=== PATIENT | male | born 1930 | race Caucasian/White ===

== ENCOUNTER 2016-08-24 18:59 | Inpatient (IN) | payer MEDICARE, BC ==
[~2016-08-24] VITALS: Ht 177.8 cm; Wt 78.1 kg
[~2016-08-24 18:59] MED LIST: APRI0.372 PO; CENTTAB9 PO; COUM1TAB PO; LEVO75TA41 PO; MOTI25CH PO; ONDA1TAB16 PO; SHOWER/TUB CHAIR SM; TOPR50TA PO; WARF7.5 PO
[2016-08-24 19:05] VITALS: BP 178/94; PULSE 74; RESP 18; TEMP 98.3; O2SAT 98
--- NOTE | 2016-08-24 19:19 | RADRPT ---
EXAM DATE/TIME: 08/24/2016 19:10 [facility] COMPARISON: CT BRAIN W/O CONTRAST, May 24, 2015, 14:10. MRI BRAIN W & W/O CONTRAST , March 07, 2016, 9:27. INDICATIONS : Stroke alert; left sided weakness and expressive aphasia. RADIATION DOSE: 45.79 CTDIvol (mGy) This report was called by myself to Dr Cerda at 7:17 p.m. MEDICAL HISTORY : Non-responsive. SURGICAL HISTORY : Non-responsive. ENCOUNTER: Initial ACUITY: 1 day PAIN SCALE: Non-responsive LOCATION: cranial TECHNIQUE: Multiple contiguous axial images were obtained of the head. Using automated exposure control and adjustment of the mA and/or kV according to patient size, radiation dose was kept as low as reasonably achievable to obtain optimal diagnostic quality images. FINDINGS: There is no evidence for intracranial hemorrhage, mass effect, mass lesions, or edema. The visualize d bony structures appear intact. Slight degree of brain atrophy is seen. Slight periventricular whit e matter changes are seen nonspecific mostly consistent with chronic small vessel ischemic changes. There are no signs of acute infarction for technique. CONCLUSION: Slight atrophic and small vessel ischemic changes without any evidence for acute hemorrhage or mass effect. Giorgio Fragoso MD on August 24, 2016 at 19:14 Board Certified Radiologist. This report was verified electronically.
[2016-08-24] MEDS ORDERED: SODIUM CHLORID 0.9% 500 ML INJ 500 ML IV ONE (19:30)
[2016-08-24 19:31] LABS: AUTOMATED NEUTROPHIL # 4.9 TH/MM3 (1.8-7.7); BASOPHIL % 0.2 % (0.0-2.0); EOSINOPHIL # 0.1 TH/MM3 (0-0.4); HEMATOCRIT 38.2 % (39.0-51.0); I-STAT POTASSIUM 3.8 MMOL/L (3.5-4.9); I-STAT SODIUM 140 MMOL/L (138-146); MEAN CELL VOLUME 88.7 FL (80.0-100.0); MEAN CORPUSCULAR HGB CONC 33.8 % (32.0-36.0); MONO % 7.7 % (0.0-8.0); NEUT % 75.1 % (16.0-70.0); PLATELET COUNT 81 TH/MM3 (150-450); RED BLOOD COUNT 4.31 MIL/MM3 (4.50-5.90); RED CELL DISTRIBUTION WIDTH 14.3 % (11.6-17.2); WHITE BLOOD COUNT 6.5 TH/MM3 (4.0-11.0)
[2016-08-24 19:34] LABS: HEMO FLAGS AUTO DIFF
[2016-08-24 19:54] LABS: APTT (PATIENT) 40.8 SEC (24.3-30.1); INTERNATIONAL NORMALIZED RATIO 2.4 RATIO; PROTHROMBIN TIME - PATIENT 27.4 SEC (9.8-11.6)
[2016-08-24 19:57] LABS: CREATINE KINASE 120 U/L (39-308)
[2016-08-24 20:01] LABS: PLATELET ESTIMATE SMEAR LOW (NORMAL); PLATELET MORPHOLOGY ENLARGED (NORMAL); SCAN/DIFF AUTO DIFF CONFIRMED
[2016-08-24 20:20] VITALS: BP 183/88; PULSE 66; RESP 18; O2SAT 97
--- NOTE | 2016-08-24 20:21 | HHI.HP ---
[facility] Service [facility] Primary Care Physician Kareem Rubin MD Admission Diagnosis TIA Diagnoses: (1) TIA (transient ischemic attack) Diagnosis: Principal (2) A-fib Diagnosis: Principal (3) Thrombocytopenia Diagnosis: Principal (4) HTN (hypertension) Diagnosis: Principal Travel History International Travel<30 Days: No Contact w/Intl Traveler <30 Da: No Traveled to Known Affected Are: No History of Present Illness This is an 86-year-old male with a PMH of A. fib on Coumadin, HTN, Orthostatic Hypotension, Recurrent Falls, Prostate CA and CAD who was brought to the ER as a Stroke Alert after having acute onset of expressive aphasia and right-sided weakness approx 2hrs prior to arrival. Per report pt had returned from walking and was noted by Daughter to have slurred speech and weakness. Noted by EMS to be confused, nonverbal upon arrival to ER. While in ER, pt w/ resolution of symptoms. BP 178/94, HR 74, O2 sat 98% on RA, Afebrile. CBC at baseline, platelets 81, previously 82 on 04/05/16. Chemistry essentially unremarkable. INR 2.4. UA negative. CT Head with slight atrophic and small vessel ischemic changes however no acute findings. S/p eval in ER by Dr. Duncan w/ Neurology, not TPA candidate in light of resolution and anticoagulation. Pt currently without complaints. Review of Systems Other ROS: 14 point review of systems otherwise negative. Past Family Social History Past Medical History PMH: A. fib on Coumadin, HTN, Orthostatic Hypotension, Recurrent Falls, Prostate CA and CAD Past Surgical History PAST SURGICAL HISTORY: Appendectomy, Cholecystectomy Allergies: Coded Allergies: No Known Allergies (Unverified , 03/13/16) Family History PAST FAMILY HISTORY: Reviewed. No h/o DM or CAD Social History PAST SOCIAL HISTORY: Negative for alcohol, tobacco or drugs. Physical Exam Vital Signs Vital Signs Date Time Temp Pulse Resp B/P Pulse Ox O2 Delivery O2 Flow Rate FiO2 08/24/16 20:13 99 Nasal Cannula 2 08/24/16 20:05 98 Nasal Cannula 2 08/24/16 19:05 98.3 74 18 178/94 98 Physical Exam PE: GENERAL: Pleasant elderly male in no acute distress. Very [place] HEENT: PERRLA, EOMI. No scleral icterus or conjunctival pallor. No lid lag or facial droop. CARDIOVASCULAR: Regular rate and rhythm. No obvious murmurs to auscultation. No chest tenderness to palpation. RESPIRATORY: No obvious rhonchi or wheezing. Clear to auscultation. Breath sounds equal bilaterally. GASTROINTESTINAL: Abdomen soft, non-tender, nondistended. BS normal. MUSCULOSKELETAL: Extremities without clubbing, cyanosis, or edema. No obvious deformities. NEUROLOGICAL: Awake, alert. No focal neurologic deficits. Moving both upper and lower extremities spontaneously. Laboratory Laboratory Tests Test 08/24/16 19:05 White Blood Count 6.5 Red Blood Count 4.31 Hemoglobin 12.9 Bedside Hemoglobin 12.9 Hematocrit 38.2 Bedside Hematocrit 38.0 Mean Corpuscular Volume 88.7 Mean Corpuscular Hemoglobin 30.0 Mean Corpuscular Hemoglobin 33.8 Concent Red Cell Distribution Width 14.3 Platelet Count 81 Mean Platelet Volume 10.4 Neutrophils (%) (Auto) 75.1 Lymphocytes (%) (Auto) 15.0 Monocytes (%) (Auto) 7.7 Eosinophils (%) (Auto) 2.0 Basophils (%) (Auto) 0.2 Neutrophils # (Auto) 4.9 Lymphocytes # (Auto) 1.0 Monocytes # (Auto) 0.5 Eosinophils # (Auto) 0.1 Basophils # (Auto) 0.0 CBC Comment AUTO DIFF Differential Comment AUTO DIFF CONFIRMED Platelet Estimate LOW Platelet Morphology Comment ENLARGED Red Cell Morphology Comment NORMAL Prothrombin Time 27.4 Prothromb Time International 2.4 Ratio Activated Partial 40.8 Thromboplast Time Fibrinogen 234 Bedside Sodium 140 Bedside Potassium 3.8 Bedside Chloride 99 Bedside Blood Urea Nitrogen 26 Bedside Creatinine 1.0 Bedside Glucose 121 Total Creatine Kinase 120 Troponin I LESS THAN 0.02 Blood Type A POSITIVE Antibody Screen NEGATIVE Blood Bank Comment Result Diagram: 08/24/161904 Assessment and Plan Problem List: (1) TIA (transient ischemic attack) ICD Code: G45.9 Status: Acute (2) A-fib ICD Code: I48.91 Status: Acute (3) Thrombocytopenia ICD Code: D69.6 Status: Acute (4) HTN (hypertension) ICD Code: I10 Status: Acute Assessment and Plan A/P: 1. TIA: Acute onset of aphasia and right-sided weakness approx 2hr prior to arrival, s/p Stroke Alert, symptoms now resolved. CT Head w/ no acute findings , images reviewed by me. S/p eval by Dr. Duncan in ER, not TPA candidate in light of resolution and anticoagulation. Recommendation for MRI/MRA, Echo, Carotid US and ASA 81mg-orders placed. ? seizure activity although less likely , will place on Seizure Precautions. Neuro checks q4h. 2. A-fib: Paroxysmal. On Coumadin, INR therapeutic at 2.4. Check Echo as above. Repeat INR in am. 3. Thrombocytopenia: Chronic. Stable. Platelets 81, previously 82 on . No active bleeding. Will monitor. 4. HTN: BP 170's, allow for permissive HTN, prn for >220 systolic. 5. DVT Prophylaxis: On Coumadin 6. Social work for d/c planning as needed. 7. Case discussed w/ ER physician at length. Physician Certification 2 Midnight Certification Type: Admission for Inpatient Services Order for Inpatient Services The services are ordered in accordance with Medicare regulations or non- Medicare payer requirements, as applicable. In the case of services not specified as inpatient-only, they are appropriately provided as inpatient services in accordance with the 2-midnight benchmark. Estimated LOS (days): 2 days is the estimated time the patient will need to remain in the hospital, assuming treatment plan goals are met and no additional complications. Post-Hospital Plan: Not yet determined Problem Qualifiers (1) TIA (transient ischemic attack): Qualified Code: G45.9 - Transient cerebral ischemia, unspecified type Meg Abreu MD Aug 24, 2016 20:21
[2016-08-24 20:28] LABS: BLOOD, URINE NEG (NEG); GLUCOSE,URINE NEG (NEG); HYALINE CAST, URINE 1 /lpf (RARE); KETONE, URINE NEG (NEG); MUCUS URINE FEW /lpf (OCC); NITRITE,URINE NEG (NEG); URINE COLOR YELLOW (YELLW/STRAW)
[2016-08-24] MEDS ORDERED: SODIUM CHLORIDE 0.9% FLUSH 5 ML FLUSH FLUSH PRN (20:30)
[2016-08-24] MEDS ORDERED: WARF4TAB52 PO (20:42)
[2016-08-24] MEDS ORDERED: WARF-18 PO (20:42)
[2016-08-24] MEDS ORDERED: METO50TA11 PO (20:42)
[2016-08-24] MEDS ORDERED: LEVO75TA3 PO (20:42)
[2016-08-24] MEDS ORDERED: APRI0.372 PO (20:42)
[2016-08-24] MEDS ORDERED: AMLO5TAB2 PO (20:42)
[2016-08-24 20:43] LABS: AMPHETAMINE, URINE NEG (NEG); BARBITURATES, URINE NEG (NEG); COCAINE, URINE NEG (NEG)
--- NOTE | 2016-08-24 20:51 | PD ---
HPI Chief Complaint: Stroke Alert Time Seen by Provider: 19:08 Travel History International Travel<30 days: No Contact w/Intl Traveler<30days: No Traveled to known affect area: No History of Present Illness HPI 86-year-old male came to the emergency room brought by EMS with history of expressive aphasia and some left upper extremity weakness as per the paramedics. Patient was initially quickly assessed by the previous ER physician. When I went to see the patient he seemed confused and mumbling some words. As per the paramedics the onset was 2 hours prior to arrival and was witnessed by the family members. The daughter called 911. However, there were no family members present when EMS brought the patient in. A stroke alert was called based on the story. Patient was rushed to CT scanner. Patient was hypertensive upon arrival. He was having difficulty following commands and hence a quick thorough exam was difficult to be performed. The neurologist was called as part of the stroke alert. I was told by the paramedics that patient is on Coumadin. PFSH Past Medical History Narrative Medical List of his past medical history is reviewed from the nursing note. Hx Anticoagulant Therapy: Yes Asthma: No Atrial Fibrillation: Yes Blood Disorders: No Anxiety: No Heart Rhythm Problems: No Cancer: Yes (PROSTATE, SHOULDER LEISON ) Cardiovascular Problems: Yes High Cholesterol: No Chemotherapy: No Chest Pain: Yes Congestive Heart Failure: No COPD: No Cerebrovascular Accident: No Coronary Artery Disease: Yes Diabetes: No Diminished Hearing: Yes ([place]) Endocrine: Yes (hypothriodism) Gastrointestinal Disorders: Yes GERD: Yes Genitourinary: No Hypertension: Yes Musculoskeletal: Yes Neurologic: Yes Psychiatric: No Reproductive: No Respiratory: No Immunizations Current: Yes Radiation Therapy: Yes (PROSTATE) Sleep Apnea: No Thyroid Disease: Yes Tetanus Vaccination: < 5 Years Influenza Vaccination: Yes Past Surgical History Appendectomy: Yes Cholecystectomy: Yes Hysterectomy: No Other Surgery: Yes Social History Alcohol Use: No Tobacco Use: No Substance Use: No Allergies-Medications (Allergen,Severity, Reaction): Coded Allergies: No Known Allergies (Unverified , 03/13/16) Comments No known drug allergies. Reported Meds & Prescriptions Reported Meds & Active Scripts Active Reported Warfarin 1 Mg Tab 1 Mg PO DIRECTED Warfarin 2.5 Mg Tab 2.5 Mg PO DAILY Metoprolol Succinate ER 24 HR (Metoprolol Succinate) 50 Mg Tab 50 Mg PO DAILY Levothyroxine (Levothyroxine Sodium) 75 Mcg Tab 75 Mcg PO DAILY Apriso (Mesalamine) 0.375 Gm Caper 1.5 Gm PO DAILY Narrative Medication List of his home medications reviewed from the nursing note. Review of Systems Except as stated in HPI: all other systems reviewed are Neg Physical Exam Narrative GENERAL: Awake, alert, elderly, confused and having difficulty following commands. Patient is very hard of hearing and requires hearing aids. He was given his hearing aids which improved the neurology exam remarkably SKIN: Warm and dry. HEAD: Atraumatic. Normocephalic. EYES: Pupils equal and round. No scleral icterus. No injection or drainage. ENT: No nasal bleeding or discharge. Mucous membranes pink and moist. NECK: Trachea midline. No JVD. CARDIOVASCULAR: Regular rate and rhythm. No murmur appreciated. RESPIRATORY: No accessory muscle use. Clear to auscultation. Breath sounds equal bilaterally. GASTROINTESTINAL: Abdomen soft, non-tender, nondistended. Hepatic and splenic margins not palpable. MUSCULOSKELETAL: No obvious deformities. No clubbing. No cyanosis. No edema. NEUROLOGICAL: Neurological exam was performed thoroughly once patient arrived from the CAT scan. This was at 7:30 PM and at this point patient was awake and alert. No obvious cranial nerve deficits. Motor grossly within normal limits. Normal speech. 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 Data Data Last Documented VS Vital Signs Date Time Temp Pulse Resp B/P Pulse Ox O2 Delivery O2 Flow Rate FiO2 08/24/16 20:13 99 Nasal Cannula 2 08/24/16 19:05 98.3 74 18 178/94 Orders Activity Bed Rest (08/24/16 ) Electrocardiogram (08/24/16 ) I-Stat Creatinine (08/24/16 19:06) I-Stat Profile (08/24/16 19:06) Prothrombin Time / Inr (Pt) (08/24/16 19:06) Act Partial Throm Time (Ptt) (08/24/16 19:06) Complete Blood Count With Diff (08/24/16 19:06) Fibrinogen (08/24/16 19:06) Creatine Kinase (Cpk) (08/24/16 19:06) Troponin I (08/24/16 19:06) Ua Includes Microscopic (08/24/16 19:06) Drug Screen, Random Urine (08/24/16 19:06) Type And Screen (08/24/16 19:06) Ct Brain W/O Iv Contrast(Rout) (08/24/16 ) Consult Neurology (08/24/16 ) Blood Glucose (08/24/16 19:06) Ecg Monitoring (08/24/16 19:06) Neuro Checks Q2HX12,Q4H (08/24/16 19:06) Nursing Bedside Swallow Assess .ONCE (08/24/16 19:06) Iv Access Insert/Monitor (08/24/16 19:06) NPO (08/24/16 19:06) Oximetry (08/24/16 19:06) Oxygen Administration (08/24/16 19:06) Resp Oxygen John C Titrat 1-4 L (08/24/16 19:06) Cath For Specimen (08/24/16 19:06) Sodium Chlorid 0.9% 500 Ml Inj (Ns 500 M (08/24/16 19:30) Admit Order (Ed Use Only) (08/24/16 20:07) Labs Laboratory Tests Test 08/24/16 08/24/16 19:05 19:30 White Blood Count 6.5 TH/MM3 Red Blood Count 4.31 MIL/MM3 Hemoglobin 12.9 GM/DL Bedside Hemoglobin 12.9 G/DL Hematocrit 38.2 % Bedside Hematocrit 38.0 % Mean Corpuscular Volume 88.7 FL Mean Corpuscular Hemoglobin 30.0 PG Mean Corpuscular Hemoglobin 33.8 % Concent Red Cell Distribution Width 14.3 % Platelet Count 81 TH/MM3 Mean Platelet Volume 10.4 FL Neutrophils (%) (Auto) 75.1 % Lymphocytes (%) (Auto) 15.0 % Monocytes (%) (Auto) 7.7 % Eosinophils (%) (Auto) 2.0 % Basophils (%) (Auto) 0.2 % Neutrophils # (Auto) 4.9 TH/MM3 Lymphocytes # (Auto) 1.0 TH/MM3 Monocytes # (Auto) 0.5 TH/MM3 Eosinophils # (Auto) 0.1 TH/MM3 Basophils # (Auto) 0.0 TH/MM3 CBC Comment AUTO DIFF Differential Comment AUTO DIFF CONFIRMED Platelet Estimate LOW Platelet Morphology Comment ENLARGED Red Cell Morphology Comment NORMAL Prothrombin Time 27.4 SEC Prothromb Time International 2.4 RATIO Ratio Activated Partial 40.8 SEC Thromboplast Time Fibrinogen 234 mg/dL Bedside Sodium 140 MMOL/L Bedside Potassium 3.8 MMOL/L Bedside Chloride 99 MMOL/L Bedside Blood Urea Nitrogen 26 MG/DL Bedside Creatinine 1.0 MG/DL Bedside Glucose 121 MG/DL Total Creatine Kinase 120 U/L Troponin I LESS THAN 0.02 NG/ML Blood Type A POSITIVE Antibody Screen NEGATIVE Blood Bank Comment Urine Color YELLOW Urine Turbidity CLEAR Urine pH 6.0 Urine Specific [place] 1.016 Urine Protein NEG mg/dL Urine Glucose (UA) NEG mg/dL Urine Ketones NEG mg/dL Urine Occult Blood NEG Urine Nitrite NEG Urine Bilirubin NEG Urine Urobilinogen LESS THAN 2.0 MG/DL Urine Leukocyte Esterase NEG Urine WBC LESS THAN 1 /hpf Urine Hyaline Casts 1 /lpf Urine Mucus FEW /lpf Microscopic Urinalysis Comment Urine Opiates Screen NEG Urine Barbiturates Screen NEG Urine Amphetamines Screen NEG Urine Benzodiazepines Screen NEG Urine Cocaine Screen NEG Urine Cannabinoids Screen NEG MDM Medical Decision Making Medical Screen Exam Complete: Yes Emergency Medical Condition: Yes Medical Record Reviewed: Yes Interpretation(s) Twelve-lead EKG was reviewed by me. Normal sinus rhythm, normal axis, nonspecific ST-T wave changes. Heart rate of 76 bpm. Differential Diagnosis TIA, seizure postictal, intracranial bleed Narrative Course 8:46 PM the radiologist called back to let me know that the CT scan did not show any hemorrhage and overall appeared to be within normal limits. I spoke with the neurologist Dr. Duncan and when he heard about the repeat exam after patient came back from CT scan he concurred that patient definitely was not a TPA candidate at this point since he had improved remarkably. He came to see the patient about 15 minutes after the conversation and assessed him. He is considering seizure with postictal phase at this point, among other differentials. Please refer to his consult note. He did not recommend any further imaging studies at this point. Meanwhile patient's came in to see the patient and I spoke with her. She mentioned that she noticed that patient was not answering meaningfully when she spoke with him or asked him a question. However the speech was absolutely clear. His words did not make any sense when he was talking however. This was between 3:30 to 4 PM today. The last time she saw him speaking normally was 3:30 PM. As per her he has never had stroke in the past. As per her he is on Coumadin for atrial fibrillation. She agreed that patient's speech has improved significantly at this point. She thinks he is little slow but otherwise back to his baseline. She never witnessed any seizures at home when he was with her. He does not have any history of seizures. His INR came back and it was 2.4. I explained to the the test results and the plan to admit him and do further workup. She understood and I answered all her questions to the best of my ability. I spoke with the hospitalist was accepted the case. Critical Care Narrative Aggregate critical care time was 45 minutes. Time to perform other separately billable procedures was not included in the critical care time. My time did not include minutes spent treating any other patients simultaneously or on activities that did not directly contribute to the patient's treatment. The services I provided to this patient were to treat and/or prevent clinically significant deterioration that could result in: Stroke alert, not a TPA candidate I provided critical care services requiring my management, as noted below: Chart data review, documentation time, medication orders and management, vital sign assessments/reviewing monitor data, ordering and reviewing lab tests, ordering and interpreting/reviewing x-rays and diagnostic studies, care of the patient and discussion of the patient with the admitting physicians. Procedures EKG Prior to Arrival: Yes Physician Communication Physician Communication Dr. Duncan Diagnosis Primary Impression: TIA (transient ischemic attack) Qualified Code: G45.9 - Transient cerebral ischemia, unspecified type Admitting Information Admitting Physician Requests: Admit Scripts Atorvastatin (Lipitor)20 Mg Tab20 Mg PO HS #30 TAB Prov:Chris Britt MD 08/26/16 Amlodipine (Norvasc)10 Mg Tab10 Mg PO DAILY #30 TAB Prov:Chris Britt MD 08/26/16 Betty Cerda MD Aug 24, 2016 20:51
[2016-08-24] MEDS ORDERED: ACETAMINOPHEN/HYDROcodone 325 MG/5 MG TAB PO PRN (21:00)
[2016-08-24] MEDS ORDERED: ONDANSETRON HCL 4 MG/2 ML VIAL IVP PRN (21:00)
[2016-08-24] MEDS ORDERED: BISACODYL 10 MG SUPP PR PRN (21:00)
[2016-08-24] MEDS ORDERED: ACETAMINOPHEN/HYDROcodone 325 MG/10 MG TAB PO PRN (21:00)
[2016-08-24] MEDS ORDERED: ACETAMINOPHEN 325 MG TAB PO PRN (21:00)
--- NOTE | 2016-08-24 21:09 | MB ---
cc: RAJI HUMPHRIES MD DATE OF CONSULTATION 08/24/16 REASON FOR CONSULTATION Stroke alert HISTORY OF PRESENT ILLNESS Mr. Mark is an 86-year-old male who has past medical history of hypertension, syncopal episode, paroxysmal atrial fibrillation, anticoagulated on Coumadin, orthostatic hypotension and multiple falls. A stroke alert was called and because after he walked a mile he was found to be slurring in speech with weakness on the right side of his body witnessed by his daughter. She called EMS and he was transported to the hospital. Initially he was confused, nonverbal to the ED physician. A head CT scan was reported with an impression of slight atrophic and small vessel ischemic changes without any evidence for acute hemorrhage or mass effect. His lab work was unremarkable. His INR was 2.4 and glucose 121. Blood pressure upon arrival was 178/94 with a respiratory rate of 18, pulse of 74, temperature of 98.3. When I assessed the patient, his NIH score scale was zero. He was back to himself completely. This is in concordance with the ED physician so the patient was not deemed as a candidate for IV TPA or mechanical thrombectomy given the low NIH stroke scale and the rapid improvement of his symptoms. REVIEW OF SYSTEMS A 12-point review of systems is negative except for what is stated in the HPI. PAST MEDICAL HISTORY 1. Hypertension, 2. Syncopal episode 3. Paroxysmal atrial fibrillation on Coumadin 4. Multiple falls. PAST SURGICAL HISTORY Noncontributory FAMILY HISTORY Noncontributory SOCIAL HISTORY Denies alcohol, smoking or recreational drug abuse. PHYSICAL EXAMINATION GENERAL: Awake, alert, good historian. [id number], pleasant. HEENT: Intact vision. Goyi-wy-[id number], atraumatic, normocephalic. NECK: Supple. No carotid bruits. CARDIOVASCULAR: Regular rate and rhythm. No murmurs. RESPIRATORY: Clear to auscultation. No wheezes. MUSCULOSKELETAL: No edema. Moves all extremities equally. NEUROLOGIC: Awake, alert, oriented to time, person and place. Intact speech. Intact speech content. Intact naming, repetition and comprehension. No dysarthria or dysphasia. No facial asymmetry. No facial numbness. Pupils are 2-3 mm bilaterally equal, no nystagmus. No diplopia. Cranial nerve exam is grossly intact. 5/5 bilateral and symmetrical except for a questionable supple weakness on the right wrist extension and the right foot dorsiflexion. Reflexes 2+ bilateral and symmetrical. Plantars are bilaterally downgoing. Sensation is intact bilateral and symmetrical. No agnosia, no sensory extension. Cerebellar functions are intact bilateral and symmetrical [id number] and [id number]. PSYCHIATRIC: Normal behavior and mood, good judgment. No hallucinations normocephalic LABORATORY DATA WBC 6.5, hemoglobin 12.9, hematocrit 38.2. Coagulation factors - INR 2.4, fibrinogen 234. Sodium 140, potassium 3.8, chloride 99, BUN 36, creatinine one. IMAGING STUDIES -Head CT scan without contrast revealed slight atrophic and small vessel ischemic changes without any evidence for acute hemorrhage or mass effect. IMPRESSION 1. Possible TIA 2. Another less likely etiology is a seizure disorder with postictal confusion. This is less likely given no history of seizures or history of recent head trauma. PLAN 1. Neuro checks q. four hourly 2. Telemetry 3. MRI brain 4. MRA brain 5. Carotid ultrasound. 6. Telemetry 7. Cardiac echo 8. DVT prophylaxis. 9. GI prophylaxis. 10. Aspirin 81 mg Thank you for the opportunity to participate in the care of your patient. MD SHELBY Miller/ /8:33 PM /8:55 PM MICHELLE
[2016-08-24 21:10] VITALS: BP 178/82; PULSE 66; RESP 18; O2SAT 97
[2016-08-24] MEDS ORDERED: ENALAPRILAT 1.25 MG/ML VIAL IV PUSH PRN (21:45)
[2016-08-24] MEDS: SODIUM CHLORIDE 0.9% FLUSH 5 ML FLUSH FLUSH SCH (22:27)
[2016-08-24] MEDS: SODIUM CHLOR 0.9% 1000 ML INJ 1,000 ML IV SCH (22:28)
[2016-08-24 22:54] VITALS: BP 171/74; PULSE 66; RESP 18; O2SAT 99
[2016-08-24 23:49] VITALS: BP 170/77
[2016-08-25] VITALS (7 sets, daily range): BP systolic 114–185; BP diastolic 63–90; PULSE 63–73; RESP 19–20; TEMP 95.6–99.9; O2SAT 94–97
[2016-08-25 03:36] LABS: AUTOMATED NEUTROPHIL # 4.1 TH/MM3 (1.8-7.7); BASOPHIL % 0.2 % (0.0-2.0); EOSINOPHIL # 0.2 TH/MM3 (0-0.4); EOSINOPHIL % 2.7 % (0.0-4.0); HEMATOCRIT 37.6 % (39.0-51.0); LYMPH % 16.3 % (9.0-44.0); LYMPHOCYTE # 0.9 TH/MM3 (1.0-4.8); MEAN CELL VOLUME 88.2 FL (80.0-100.0); MEAN CORPUSCULAR HEMOGLOBIN 29.8 PG (27.0-34.0); MEAN CORPUSCULAR HGB CONC 33.8 % (32.0-36.0); MONO % 7.7 % (0.0-8.0); NEUT % 73.1 % (16.0-70.0); PLATELET COUNT 71 TH/MM3 (150-450); RED BLOOD COUNT 4.26 MIL/MM3 (4.50-5.90); RED CELL DISTRIBUTION WIDTH 14.4 % (11.6-17.2); WHITE BLOOD COUNT 5.6 TH/MM3 (4.0-11.0)
[2016-08-25 03:37] LABS: HEMO FLAGS AUTO DIFF
[2016-08-25 04:02] LABS: ANION GAP 7 MEQ/L (5-15); AST (GOT) 16 U/L (15-37); BICARBONATE 28.4 MEQ/L (21.0-32.0); BLOOD UREA NITROGEN 17 MG/DL (7-18); CHLORIDE 106 MEQ/L (98-107); GLOMERULAR FILTRATION RATE 97 ML/MIN (>89); POTASSIUM 3.4 MEQ/L (3.5-5.1); SODIUM (NA) 141 MEQ/L (136-145)
[2016-08-25 04:06] LABS: ALKALINE PHOSPHATASE 55 U/L (45-117); ALT (GPT) 22 U/L (12-78); TOTAL BILIRUBIN ADULT 0.5 MG/DL (0.2-1.0)
--- NOTE | 2016-08-25 08:55 | RADRPT ---
EXAM DATE/TIME: 08/25/2016 07:56 [facility] COMPARISON: No previous studies available for comparison. INDICATIONS : Transient ischemic attack. MEDICAL HISTORY : Gastroesophageal reflux disease. Hypertension. Carcinoma, prostate. Hypothyroidism. Hearing loss. Cor onary artery disease. Anticoagulant therapy. Afib. Radiation. Shoulder cancer. SURGICAL HISTORY : Cholecystectomy. Appendectomy. Left shoulder surgery. Right shoulder cancer removed. Left leg surge ry. ENCOUNTER: Initial ACUITY: 2 days PAIN SCORE: 0/10 LOCATION: Bilateral neck PEAK SYSTOLIC VELOCITIES (cm/sec): ICA/CCA RATIO: Right: 1.2 Left: 1.7 ICA: Right: 81 Left: 148 CCA: Right: 65 Left: 87 ECA: Right: 58 Left: 63 VERTEBRAL: Right: 46 antegrade Left: 36 antegrade Elevated flow velocities and ICA/CCA ratios have been found to correlate with increased degrees of vessel stenosis, calculated as percentage of diameter relative to a normal segment of distal ICA/CCA FINDINGS: RIGHT CAROTID: No significant stenosis is visualized. Intimal thickening and scattered plaque. The waveforms are wit hin normal limits. LEFT CAROTID: Mild scattered plaque. The waveforms are within normal limits. VERTEBRAL ARTERIES: Antegrade flow is seen in both vertebral arteries. MISCELLANEOUS: None. CONCLUSION: 1. Elevated velocity/ratio in the left carotid system suggesting a 50-69% stenosis. 2. No significant stenosis in the right carotid artery. Ramesh Dukes MD on August 25, 2016 at 8:52 Board Certified Radiologist. This report was verified electronically.
[2016-08-25 09:21] LABS: PLATELET ESTIMATE SMEAR LOW (NORMAL); PLATELET MORPHOLOGY NORMAL (NORMAL); SCAN/DIFF AUTO DIFF CONFIRMED
[2016-08-25] MEDS: SODIUM CHLORIDE 0.9% FLUSH 5 ML FLUSH FLUSH SCH ×2 (09:44→20:18)
[2016-08-25] MEDS: ASPIRIN EC 81 MG TABEC PO SCH (09:44)
--- NOTE | 2016-08-25 10:11 | HHI.PR ---
Subjective Remarks Follow-up for T IIA versus CVA Right side is numbness improved, aphasia has resolved. Patient can answer questions fine, he is oriented. Denies any headache, nausea or vomiting. No chest pain, palpitations or shortness of breath. Objective Vitals Vital Signs Date Time Temp Pulse Resp B/P Pulse Ox O2 Delivery O2 Flow Rate FiO2 08/25/16 09:58 96.5 70 20 178/88 96 08/25/16 04:30 98.0 68 19 169/80 97 08/25/16 00:40 98.9 69 19 185/90 96 08/24/16 23:49 64 18 170/77 96 08/24/16 22:54 66 18 171/74 99 Room Air 08/24/16 21:10 66 18 178/82 97 08/24/16 20:20 66 18 183/88 97 Nasal Cannula 2 08/24/16 20:13 99 Nasal Cannula 2 08/24/16 20:05 98 Nasal Cannula 2 08/24/16 19:05 98.3 74 18 178/94 98 I/O 08/24/16 08/24/16 08/24/16 08/25/16 08/25/16 08/25/16 07:00 15:00 23:00 07:00 15:00 23:00 Intake Total 400 ml Output Total 450 ml Balance -50 ml Intake Oral 400 ml Output Urine Total 450 ml # Voids 1 # Bowel Movements 0 Result Diagram: 08/25/16 0326 08/25/16 0326 Imaging Last Impressions Carotid Artery Ultrasound 08/25/16 0000 Signed Impressions: Service Date/Time: Thursday, August 25, 2016 07:56 - CONCLUSION: 1. Elevated velocity/ratio in the left carotid system suggesting a 50-69%% stenosis. 2. No significant stenosis in the right carotid artery. Ramesh Dukes MD Head CT 08/24/16 0000 Signed Impressions: Service Date/Time: Wednesday, August 24, 2016 19:10 - CONCLUSION: Slight atrophic and small vessel ischemic changes without any evidence for acute hemorrhage or mass effect. Giorgio Fragoso MD Objective Remarks GENERAL: Not in distress. HEENT: PERRLA, EOMI. No scleral icterus or conjunctival pallor. CARDIOVASCULAR: Regular rate and rhythm. No obvious murmurs to auscultation. No chest tenderness to palpation. RESPIRATORY: No obvious rhonchi or wheezing. Clear to auscultation. Breath sounds equal bilaterally. GASTROINTESTINAL: Abdomen soft, non-tender, nondistended. BS normal. MUSCULOSKELETAL: Extremities without clubbing, cyanosis, or edema. No obvious deformities. NEUROLOGICAL: Awake, alert. Oriented 3, moves all extremities, 5 over 5 all 4 extremities, no sensory deficits, symmetric touch sensation bilaterally, no cranial nerve deficits, no facial asymmetry. No obvious aphasia. A/P Problem List: (1) TIA (transient ischemic attack) ICD Code: G45.9 Status: Acute (2) A-fib ICD Code: I48.91 Status: Acute (3) Thrombocytopenia ICD Code: D69.6 Status: Acute (4) HTN (hypertension) ICD Code: I10 Status: Acute Assessment and Plan This is an 86-year-old male who presented with aphasia and right side is paresthesia TIA versus CVA-rule out seizures-CT scan of the head was unremarkable. Follow- up MRI, MRA and echocardiogram. Carotid ultrasound showed a 50-69% possible left-sided stenosis. Check CTA of the neck. Neurology following. Continue neuro checks. Continue aspirin, on Coumadin. Will need surgery if with significant stenosis. Discussed with family. Check lipid panel and hemoglobin A1c. Atrial fibrillation-paroxysmal, currently in sinus rhythm, INR therapeutic. Follow-up echocardiogram Thrombocytopenia: Chronic. Stable. Platelets 81, previously 82 on 04/05/16. No active bleeding. Will monitor. HTN: BP 170's, allow for permissive HTN, prn for >220 systolic. Restart Norvasc 10 mg daily if MRI is negative. DVT Prophylaxis: On Coumadin Discussed with RN and family: and daughter Problem Qualifiers (1) TIA (transient ischemic attack): Qualified Code: G45.9 - Transient cerebral ischemia, unspecified type Chris Britt MD Aug 25, 2016 10:11
[2016-08-25] MEDS ORDERED: POTASSIUM CHLORIDE 10 MEQ CONTROLLED RELEASE TAB PO ONE (10:15)
[2016-08-25] MEDS: SODIUM CHLOR 0.9% 1000 ML INJ 1,000 ML IV SCH (11:18)
--- NOTE | 2016-08-25 12:41 | RADRPT ---
EXAM DATE/TIME: 08/25/2016 12:14 [facility] COMPARISON: MRA BRAIN W/O CONTRAST, March 07, 2016, 9:27. INDICATIONS : Right sided weakness. MEDICAL HISTORY : Carcinoma, prostate. Hypertension. SURGICAL HISTORY : Appendectomy. Cholecystectomy. ENCOUNTER: Initial ACUITY: 1 day PAIN SCORE: 0/10 LOCATION: cranial Please note a normal MRA of the brain does not entirely exclude the possibility of a small aneurysm, nor the possibility of distal intracranial vessel disease. TECHNIQUE: 3D time of flight MRA was performed. Source images, multiplanar STS MIP, and 3D volume MIP reconstru ctions were reviewed. FINDINGS: There is excellent visualization of the major intracranial arteries out to the second-order branch ve ssels. There is no evidence for aneurysm, vessel truncation or stenosis, and no evidence for vascula r malformation. Persistent circulation right posterior sternal arteries. Vertebrobasilar juncti on normal. Anterior to indicating artery. Hypoplastic right A1 segment. Anterior communicating artery . CONCLUSION: No significant stenosis. Normal variants. Ramesh Dukes MD on August 25, 2016 at 12:38 Board Certified Radiologist. This report was verified electronically.
[2016-08-25] MEDS ORDERED: IOHEXOL 350 MG/ML 10 ML VIAL (for RAD DIAG) IV ONE (12:46)
--- NOTE | 2016-08-25 12:50 | RADRPT ---
EXAM DATE/TIME: 08/25/2016 12:14 [facility] COMPARISON: MRI BRAIN W & W/O CONTRAST, March 07, 2016, 9:27. INDICATIONS : Right sided weakness. MEDICAL HISTORY : Carcinoma, prostate. Hypertension. SURGICAL HISTORY : Cholecystectomy. ENCOUNTER: Initial ACUITY: 1 day PAIN SCORE: 0/10 LOCATION: cranial TECHNIQUE: Multiplanar, multisequence MRI of the brain was performed without contrast. FINDINGS: CEREBRUM: Cerebral atrophy. The ventricles are normal for age. No evidence of midline shift, mass lesion, hemo rrhage or acute infarction. No extraaxial fluid collections are seen. The pituitary gland and supra sellar cistern are normal in configuration. WHITE MATTER: Scattered foci of bright T2 signal abnormalities are seen in the white matter. POSTERIOR FOSSA: The cerebellum and brainstem are intact. The 4th ventricle is midline. The cerebellopontine angle is unremarkable. The cerebellar tonsils are normal in position. DIFFUSION IMAGING: No focal areas of restricted diffusion are seen. No evidence of acute infarction. EXTRACRANIAL: The visualized portions of the orbits and paranasal sinuses are unremarkable. CONCLUSION: 1. Cerebral atrophy and chronic ischemic small vessel vasculopathy. 2. No acute intracranial abnormality. No acute infarction Ramesh Dukes MD on August 25, 2016 at 12:47 Board Certified Radiologist. This report was verified electronically.
--- NOTE | 2016-08-25 19:02 | RADRPT ---
EXAM DATE/TIME: 08/25/2016 12:46 [facility] COMPARISON: No previous studies available for comparison. INDICATIONS : Left carotid stenosis. IV CONTRAST: 90 cc Omnipaque 350 (iohexol) IV RADIATION DOSE: 28.28 CTDIvol (mGy) MEDICAL HISTORY : Cardiovascular disease. Hypertension. Carcinoma, prostate. SURGICAL HISTORY : Appendectomy. Cholecystectomy. ENCOUNTER: Initial ACUITY: 1 day PAIN SCALE: 4/10 LOCATION: neck TECHNIQUE: Volumetric scanning was performed using a multirow detector CT scanner. The data was post processed with a variety of visualization algorithms including full-volume maximum intensity projection, multip lanar sliding thin-slab reformation, curved-planar reformation, and surface-rendering techniques. Us ing automated exposure control and adjustment of the mA and/or kV according to patient size, radiatio n dose was kept as low as reasonably achievable to obtain optimal diagnostic quality images. FINDINGS: AORTIC ARCH: There is a three-vessel origin of the great vessels from the aorta. No evidence of ostial narrowing. RIGHT CAROTID: The common carotid artery is intact. The carotid bulb has a normal configuration without ulceration o r narrowing. The internal carotid artery lumen is smooth without stenosis. The external carotid maco ry is intact. LEFT CAROTID: The common carotid artery is intact. The carotid bulb has a normal configuration without ulceration or narrowing. The internal carotid artery lumen is smooth without stenosis. The external carotid ar roque is intact. VERTEBRALS: The vertebral arteries have a symmetric diameter. No stenotic lesions are seen. CONCLUSION: Normal examination for a patient of this age. Sonographic findings are probably related to vessel tortuosity. Dany Park MD on August 25, 2016 at 18:57 Board Certified Radiologist. This report was verified electronically.
[2016-08-25] MEDS ORDERED: ATORVASTATIN 20 MG TAB PO SCH (21:00)
--- NOTE | 2016-08-25 21:32 | HHI.PR ---
Subjective Subjective Comments No acute events reported No headache, no new complaint CUS with left ICA 50-69% Pending ECHO Active Medications Current Medications Medications (Trade) Dose Ordered Sig/Vj Route Start Time Stop Time Status Last Admin (NS 1000 ml Inj) 1,000 ml @ 70 mls/hr [id number] IV 08/24/16 21:00 08/24/16 22:28 (NS Flush) 2 ml UNSCH PRN FLUSH 08/24/16 20:30 (NS Flush) 2 ml BID FLUSH 08/24/16 21:00 08/25/16 20:18 (Zofran Inj) 4 mg Q6H PRN IVP 08/24/16 21:00 (Dulcolax Supp) 10 mg DAILY PRN GA 08/24/16 21:00 (Tylenol) 650 mg Q6H PRN PO 08/24/16 21:00 ([place]mont 5-325 Mg) 1 tab Q4H PRN PO 08/24/16 21:00 ([place]mont 10-325 Mg) 1 tab Q4H PRN PO 08/24/16 21:00 (Ecotrin Ec) 81 mg DAILY PO 08/25/16 09:00 08/25/16 09:44 (Vasotec Inj) 1.25 mg Q6H PRN IV PUSH 08/24/16 21:45 (Lipitor) 20 mg HS PO 08/25/16 21:00 08/25/16 20:19 (Norvasc) 10 mg DAILY PO 08/25/16 17:45 08/25/16 17:47 Allergies Allergies Coded Allergies No Known Allergies (Unverified03/13/16) Exam I&O / VS 08/24/16 08/24/16 08/25/16 15:00 23:00 07:00 Intake Total 400 ml Output Total 450 ml Balance -50 ml Intake Oral 400 ml Output Urine Total 450 ml # Voids 1 # Bowel Movements 0 Vital Signs Date Time Temp Pulse Resp B/P Pulse Ox O2 Delivery O2 Flow Rate FiO2 08/25/16 15:59 95.6 66 20 165/78 97 08/25/16 13:51 63 08/25/16 12:29 99.9 73 20 114/63 94 08/25/16 09:58 96.5 70 20 178/88 96 08/25/16 04:30 98.0 68 19 169/80 97 08/25/16 00:40 98.9 69 19 185/90 96 08/24/16 23:49 64 18 170/77 96 08/24/16 22:54 66 18 171/74 99 Room Air General: Alert and Oriented, No acute distress Eye: PERRL, EOMI, Normal conjuctiva, Vision unchanged Respiratory: Lungs CTA Cardiology: Normal rate, No murmur Neurologic: Alert, Oriented, Normal sensory, Normal motor, No focal defects, CN II-XII intact, Normal DTR's Objective Path Results Last 72 hours Impressions Neck CTA 08/25/16 0000 Signed Impressions: Service Date/Time: Thursday, August 25, 2016 12:46 - CONCLUSION: Normal examination for a patient of this age. Sonographic findings are probably related to vessel tortuosity. Dany Park MD Head Magnetic Resonance Angiography 08/25/16 0000 Signed Impressions: Service Date/Time: Thursday, August 25, 2016 12:14 - CONCLUSION: No significant stenosis. Normal variants. Ramesh Dukes MD Carotid Artery Ultrasound 08/25/16 0000 Signed Impressions: Service Date/Time: Thursday, August 25, 2016 07:56 - CONCLUSION: 1. Elevated velocity/ratio in the left carotid system suggesting a 50-69%% stenosis. 2. No significant stenosis in the right carotid artery. Ramesh Dukes MD Brain MRI 08/25/16 0000 Signed Impressions: Service Date/Time: Thursday, August 25, 2016 12:14 - CONCLUSION: 1. Cerebral atrophy and chronic ischemic small vessel vasculopathy. 2. No acute intracranial abnormality. No acute infarction Rmaesh Dukes MD Head CT 08/24/16 0000 Signed Impressions: Service Date/Time: Wednesday, August 24, 2016 19:10 - CONCLUSION: Slight atrophic and small vessel ischemic changes without any evidence for acute hemorrhage or mass effect. Giorgio Fragoso MD Micro and Labs Laboratory Tests Test 08/25/16 08/25/16 01:37 03:26 Troponin I LESS THAN 0.02 LESS THAN 0.02 White Blood Count 5.6 Red Blood Count 4.26 Hemoglobin 12.7 Hematocrit 37.6 Mean Corpuscular Volume 88.2 Mean Corpuscular Hemoglobin 29.8 Mean Corpuscular Hemoglobin 33.8 Concent Red Cell Distribution Width 14.4 Platelet Count 71 Mean Platelet Volume 10.1 Neutrophils (%) (Auto) 73.1 Lymphocytes (%) (Auto) 16.3 Monocytes (%) (Auto) 7.7 Eosinophils (%) (Auto) 2.7 Basophils (%) (Auto) 0.2 Neutrophils # (Auto) 4.1 Lymphocytes # (Auto) 0.9 Monocytes # (Auto) 0.4 Eosinophils # (Auto) 0.2 Basophils # (Auto) 0.0 CBC Comment AUTO DIFF Differential Comment AUTO DIFF CONFIRMED Platelet Estimate LOW Platelet Morphology Comment NORMAL Sodium Level 141 Potassium Level 3.4 Chloride Level 106 Carbon Dioxide Level 28.4 Anion Gap 7 Blood Urea Nitrogen 17 Creatinine 0.76 Estimat Glomerular Filtration 97 Rate Random Glucose 112 Calcium Level 8.1 Total Bilirubin 0.5 Aspartate Amino Transf 16 (AST/SGOT) Alanine Aminotransferase 22 (ALT/SGPT) Alkaline Phosphatase 55 Total Protein 6.2 Albumin 3.3 Wade Duncan MD Aug 25, 2016 21:32
[2016-08-26 00:41] VITALS: BP 168/88; PULSE 70; RESP 20; TEMP 97.5; O2SAT 95
[2016-08-26] MEDS: SODIUM CHLOR 0.9% 1000 ML INJ 1,000 ML IV SCH (01:32)
[2016-08-26 04:52] VITALS: BP 177/86; PULSE 71; RESP 20; TEMP 95.4; O2SAT 96
[2016-08-26 08:09] VITALS: BP 171/83; PULSE 70; RESP 20; TEMP 96.2; O2SAT 95
[2016-08-26] MEDS: SODIUM CHLORIDE 0.9% FLUSH 5 ML FLUSH FLUSH SCH (08:48)
[2016-08-26] MEDS: ASPIRIN EC 81 MG TABEC PO SCH (08:49)
[2016-08-26] MEDS ORDERED: AMLO10 PO (08:58)
[2016-08-26] MEDS ORDERED: LIPI20TA PO (08:58)
[2016-08-26] MEDS ORDERED: LISI-515 PO (08:58)
[2016-08-26] MEDS ORDERED: ASPI81TA11 PO (08:58)
[2016-08-26] MEDS ORDERED: LISINOPRIL 20 MG TAB PO SCH (09:00)
--- NOTE | 2016-08-26 09:06 | HHI.DS ---
Discharge Summary Admission Date Aug 24, 2016 at 20:16 Discharge Date: Aug 26, 2016 Admitting Diagnosis TIA (1) TIA (transient ischemic attack) ICD Code: G45.9 Diagnosis: Principal (2) A-fib ICD Code: I48.91 Diagnosis: Secondary (3) Thrombocytopenia ICD Code: D69.6 Diagnosis: Secondary (4) HTN (hypertension) ICD Code: I10 Diagnosis: Secondary Procedures None Brief History - From Admission This is an 86-year-old male with a PMH of A. fib on Coumadin, HTN, Orthostatic Hypotension, Recurrent Falls, Prostate CA and CAD who was brought to the ER as a Stroke Alert after having acute onset of expressive aphasia and right-sided weakness approx 2hrs prior to arrival. Per report pt had returned from walking and was noted by Daughter to have slurred speech and weakness. Noted by EMS to be confused, nonverbal upon arrival to ER. While in ER, pt w/ resolution of symptoms. BP 178/94, HR 74, O2 sat 98% on RA, Afebrile. CBC at baseline, platelets 81, previously 82 on 04/05/16. Chemistry essentially unremarkable. INR 2.4. UA negative. CT Head with slight atrophic and small vessel ischemic changes however no acute findings. S/p eval in ER by Dr. Duncan w/ Neurology, not TPA candidate in light of resolution and anticoagulation. Pt currently without complaints. CBC/BMP: 08/25/16 0326 08/25/16 0326 Significant Findings Laboratory Tests Test 08/24/16 08/24/16 08/25/16 08/25/16 19:05 19:30 01:37 03:26 Red Blood Count 4.31 MIL/MM3 4.26 MIL/MM3 (4.50-5.90) (4.50-5.90) Hemoglobin 12.9 GM/DL 12.7 GM/DL (13.0-17.0) (13.0-17.0) Hematocrit 38.2 % 37.6 % (39.0-51.0) (39.0-51.0) Platelet Count 81 TH/MM3 71 TH/MM3 (150-450) (150-450) Neutrophils (%) (Auto) 75.1 % 73.1 % (16.0-70.0) (16.0-70.0) Platelet Estimate LOW (NORMAL) LOW (NORMAL) Platelet Morphology Comment ENLARGED (NORMAL) Prothrombin Time 27.4 SEC (9.8-11.6) Activated Partial 40.8 SEC Thromboplast Time (24.3-30.1) Bedside Glucose 121 MG/DL (60-95) Troponin I LESS THAN 0.02 LESS THAN 0.02 LESS THAN 0.02 NG/ML NG/ML NG/ML (0.02-0.05) (0.02-0.05) (0.02-0.05) Urine Mucus FEW /lpf (OCC) Lymphocytes # (Auto) 0.9 TH/MM3 (1.0-4.8) Potassium Level 3.4 MEQ/L (3.5-5.1) Random Glucose 112 MG/DL (74-106) Calcium Level 8.1 MG/DL (8.5-10.1) Total Protein 6.2 GM/DL (6.4-8.2) Albumin 3.3 GM/DL (3.4-5.0) PE at Discharge GENERAL: Not in distress. HEENT: PERRLA, EOMI. No scleral icterus or conjunctival pallor. CARDIOVASCULAR: Regular rate and rhythm. No obvious murmurs to auscultation. No chest tenderness to palpation. RESPIRATORY: No obvious rhonchi or wheezing. Clear to auscultation. Breath sounds equal bilaterally. GASTROINTESTINAL: Abdomen soft, non-tender, nondistended. BS normal. MUSCULOSKELETAL: Extremities without clubbing, cyanosis, or edema. No obvious deformities. NEUROLOGICAL: Awake, alert. Oriented 3, moves all extremities, 5 over 5 all 4 extremities, no sensory deficits, symmetric touch sensation bilaterally, no cranial nerve deficits, no facial asymmetry. No obvious aphasia. Pt update on day of discharge Eating, no nausea or vomiting. Denies any headache. No paresthesia, no aphasia , oriented. Hospital Course This is an 86-year-old male who presented with aphasia and right side is paresthesia. Consideration was TIA versus CVA. CT scan of the head was unremarkable. Neurology was consulted. Ultrasound of the neck showed possible 50-69% left-sided stenosis. MRI and MRA of the head were unremarkable. A subsequent CT of the neck was negative for any stenosis. Workup for stroke was negative. Echocardiogram was done but pending on discharge. He will continue Coumadin, his antihypertensive was increased, he was started on lisinopril, Norvasc was increased. Patient discharged when BP is better. Patient was cleared by neurology for discharge, follow-up with him in one month. Pt Condition on Discharge: Good Discharge Disposition: Discharge Home Discharge Time: > 30 minutes Discharge Instructions DIET: Follow Instructions for: Heart Healthy Diet Activities you can perform: Regular-No Restrictions New Medications: Amlodipine (Norvasc) 10 Mg Tab 10 MG PO DAILY HTN #[address] (Aspirin EC) 81 Mg Tabdr 81 MG PO DAILY stroke Days 30 TAB Atorvastatin (Lipitor) 20 Mg Tab 20 MG PO HS CVA #30 TAB Lisinopril (Lisinopril) 20 Mg Tab 20 MG PO DAILY HTN #30 TAB Continued Medications: Levothyroxine (Levothyroxine) 75 Mcg Tab 75 MCG PO DAILY Thyroid #30 Ref 0 TAB Mesalamine ER 24 HR (Apriso) 0.375 Gm Caper 1.5 GM PO DAILY Ulcerative colitis Ref 0 CAP Metoprolol Succinate ER 24 HR (Metoprolol Succinate ER 24 HR) 50 Mg Tab 50 MG PO DAILY #30 Ref 0 TAB Warfarin (Warfarin) 2.5 Mg Tab 2.5 MG PO DAILY Blood Clot Prevention #30 Ref 0 TAB Warfarin (Warfarin) 1 Mg Tab 1 MG PO DIRECTED Blood Clot Prevention #30 Ref 0 TAB Discontinued Medications: Amlodipine (Amlodipine) 5 Mg Tab 5 MG PO DAILY Blood Pressure Management #30 Ref 0 TAB Chris Britt MD Aug 26, 2016 09:06
[2016-08-26] MEDS ORDERED: WARFARIN SOD 7.5 MG TAB PO ONE (10:00)
[2016-08-26 10:05] LABS: HEMOGLOBIN A1a 1.2 %; HEMOGLOBIN A1b 1.4 %; HEMOGLOBIN Ao 85.1 %; HEMOGLOBIN LA1C 2.3 %; HEMOGLOBIN P3 5.5 %
[2016-08-26 10:10] LABS: INTERNATIONAL NORMALIZED RATIO 1.6 RATIO; PROTHROMBIN TIME - PATIENT 17.5 SEC (9.8-11.6)
[2016-08-26 10:26] LABS: BICARBONATE 28.7 MEQ/L (21.0-32.0); POTASSIUM 3.9 MEQ/L (3.5-5.1)
[2016-08-26 10:27] LABS: HDL CHOLESTEROL 41.3 MG/DL (40.0-60.0)
[2016-08-26 11:38] VITALS: PULSE 67
--- NOTE | 2016-08-26 12:36 | EKG ---
Date Performed: 08/24/2016 Time Performed: 19:31:36 PTAGE: 86 years EKG: Sinus rhythm NORMAL ECG Since PREVIOUS TRACING , no significant change noted PREVIOUS TRACIN03/13/2016 09.09.41 DOCTOR: Marcel Kim Interpretating Date/Time 08/26/2016 12:35:04
[2016-08-26 12:55] VITALS: BP 137/68; PULSE 74; RESP 20; TEMP 97; O2SAT 95
[2016-08-26 16:15] VITALS: BP 109/61; PULSE 74; RESP 20; TEMP 97.2; O2SAT 95
[2016-08-27] MEDS ORDERED: WARF-21 PO (18:09)
[2016-08-27] MEDS ORDERED: APRI0.372 PO (18:15)
[2016-08-27] MEDS ORDERED: FLUD.1 PO (18:17)
[2016-08-27] MEDS ORDERED: MULT-135 PO (18:17)
[2016-08-27] MEDS ORDERED: BOSW5TAB PO (18:17)
--- NOTE | 2016-09-02 19:00 | EC ---
Study Study Date:08/26/2016 STUDY CONCLUSIONS SUMMARY - Left ventricle: The cavity size was normal. Wall thickness was normal. Systolic function was mildly to moderately reduced. The estimated ejection fraction was in the range of 40% to 45%. Diffuse hypokinesis. Regional wall motion abnormalities cannot be excluded. Doppler parameters are consistent with abnormal left ventricular relaxation (grade 1 diastolic dysfunction). - Aortic valve: Valve area: 4.15cm^2(VTI). Valve area: 3.72cm^2 (Vmax). - Mitral valve: Mildly calcified annulus. Mildly thickened leaflets, . If LV function is below 40, please consider prescribing an ACEI or ARB or document rationale for non-use. PROCEDURE DATA STUDY STATUS: Elective. Procedure: Transthoracic echocardiography. Image quality was suboptimal. Scanning was performed from the parasternal, apical, and subcostal acoustic windows. Study completion: The patient tolerated the procedure well. Transthoracic echocardiography. M-mode, complete 2D, complete spectral Doppler, and color Doppler. Height: Height: 70in. Weight: Weight: 171.6lb. Body mass index: BMI: 24.7kg/m^2. Body surface area: BSA: 1.96m^2. Patient status: Inpatient. CARDIAC ANATOMY LEFT VENTRICLE: Not well visualized. The cavity size was normal. Wall thickness was normal. Systolic function was mildly to moderately reduced. The estimated ejection fraction was in the range of 40% to 45%. Diffuse hypokinesis. Regional wall motion abnormalities cannot be excluded. Doppler parameters are consistent with abnormal left ventricular relaxation (grade 1 diastolic dysfunction). AORTIC VALVE: Poorly visualized. Mildly thickened leaflets. Doppler: Transvalvular velocity was within the normal range. There was no stenosis. No regurgitation. Valve area: 4.15cm^2(VTI). Indexed valve area: 2.12cm^2/m^2 (VTI). Valve area: 3.72cm^2 (Vmax). Indexed valve area: 1.9cm^2/m^2 (Vmax). Mean gradient: 1mm Hg (S). AORTA: Aortic root: The aortic root was normal in size. MITRAL VALVE: Mildly calcified annulus. Mildly thickened leaflets, . Doppler: Transvalvular velocity was within the normal range. There was no evidence for stenosis. Trace to mild regurgitation. LEFT ATRIUM: The atrium was normal in size. RIGHT VENTRICLE: The cavity size was normal. Wall thickness was normal. PULMONIC VALVE: Poorly visualized. Doppler: Transvalvular velocity was within the normal range. There was no evidence for stenosis. No regurgitation. TRICUSPID VALVE: Structurally normal valve. Doppler: Transvalvular velocity was within the normal range. No regurgitation. PULMONARY ARTERY: The main pulmonary artery was normal-sized. RIGHT ATRIUM: The atrium was normal in size. PERICARDIUM: There was no pericardial effusion. SYSTEMIC VEINS: Inferior vena cava: The vessel was normal in size. Patient weight: 171.6lb _Ejection fraction:_ 65-75% _Fractional shortening:_ 32% up to 5Kg 5-11.5Kg 11.6-22.9Kg 23-45Kg 45-57Kg Aortic Root 7-13 <17 13-22 17-27 17-27 LA diam 6-13 <23 24-38 33-47 37-40 RVID 10-17 7-15 7-15 7-18 8-17 LVIDd 12-22 <32 24-38 33-47 37-40 LVPW 2-4 3-6 5-7 6-8 7-8 IVS 2-4 3-6 5-7 6-8 7-8 BASIC MEASUREMENTS ADULT NORMAL Left ventricle LV internal dimension, ED, chordal 47.2 mm 43-52 level, PLAX LV internal dimension, ES, chordal *39.6 mm 23-38 level, PLAX Fractional shortening, chordal level, *16 % >29 PLAX LV posterior wall thickness, ED 12.2 mm IVS/LVPW ratio, ED 0.99 <1.3 Ventricular septum Septal thickness, ED 12.1 mm Aortic valve Leaflet separation 19 mm 15-26 Aorta Root diameter, ED 37 mm Left atrium Anterior-posterior dimension 32 mm Anterior-posterior dimension index 1.63 cm/m^2 <2.2 BASIC MEASUREMENTS ADULT NORMAL Aortic valve Leaflet separation 19 mm 15-26 DOPPLER MEASUREMENTS ADULT NORMAL Aortic valve Peak velocity, S 71.3 cm/s Mean velocity, S 50.1 cm/s VTI, S 14.8 cm Mean gradient, S 1 mm Hg Valve area, VTI 4.15 cm^2 Valve area index, VTI 2.12 cm^2/m^2 Valve area, Vmax 3.72 cm^2 Valve area index, Vmax 1.9 cm^2/m^2 Mitral valve Peak E-wave velocity 43.9 cm/s Peak A-wave velocity 80.9 cm/s Peak E/A ratio 0.5 Pulmonic valve Peak velocity, S 77.5 cm/s LEGEND: Mean values are shown as u=mean value. Asterisk (*) gillespie values outside specified normal range. Prepared and signed by Chay Mccallum [id number]
[2016-11-14] MEDS ORDERED: PHEN60SU RECTAL (13:26)
== END 2016-08-26 17:00 | disposition home or self-care (01) | DRG 69 ==
LOC: NEPC 18:59 → NEDA 20:16 → N05A 08-25 00:10
PROVIDERS: ADMIT Hospitalist; ATTEND Hospitalist
DX: G45.9 Transient cerebral ischemic attack, unspecified (principal); D69.6 Thrombocytopenia, unspecified; I48.0 Paroxysmal atrial fibrillation; R47.01 Aphasia; I10 Essential (primary) hypertension; I25.10 Atherosclerotic heart disease of native coronary artery without angina pectoris; H91.93 Unspecified hearing loss, bilateral; M62.81 Muscle weakness (generalized); K21.9 Gastro-esophageal reflux disease without esophagitis; R29.6 Repeated falls; Z79.01 Long term (current) use of anticoagulants; Z85.46 Personal history of malignant neoplasm of prostate; Z92.3 Personal history of irradiation
CPT/HCPCS: 70450; 70498; 70544; 70551; 80048; 80053; 80061; 80307; 81001; 82435; 82550; 82565; 82947; 83036; 84132; 84295; 84484; 84520; 85025; 85384; 85610; 85730; 86850; 86900; 86901; 93005; 93306; 93880; 96360; J7030; J7040; P9612; Q9967

== ENCOUNTER 2016-08-27 15:32 | Inpatient (IN) | payer MEDICARE, BC ==
[2016-08-25] MEDS: IOHEXOL 350 MG/ML 10 ML VIAL (for RAD DIAG) IV ONE (12:46)
[2016-08-27] VITALS (10 sets, daily range): BP systolic 161–200; BP diastolic 68–101; PULSE 73–87; RESP 18–22; TEMP 97.8–98.1; O2SAT 94–100
[~2016-08-27] VITALS: Ht 170.2 cm; Wt 77.6 kg
[~2016-08-27 15:32] MED LIST changes: +AMLO10 PO; -CENTTAB9 PO; -COUM1TAB PO; +LEVO75TA3 PO; -LEVO75TA41 PO; +LIPI20TA PO; +METO50TA11 PO; -MOTI25CH PO; -ONDA1TAB16 PO; -SHOWER/TUB CHAIR SM; -TOPR50TA PO; +WARF-18 PO; +WARF4TAB52 PO; -WARF7.5 PO
[2016-08-27] MEDS ORDERED: SODIUM CHLOR 0.9% 1000 ML INJ 1,000 ML IV ONE (15:38)
[2016-08-27 15:59] LABS: AUTOMATED NEUTROPHIL # 5.2 TH/MM3 (1.8-7.7); BASOPHIL % 0.2 % (0.0-2.0); EOSINOPHIL # 0.2 TH/MM3 (0-0.4); EOSINOPHIL % 2.2 % (0.0-4.0); HEMATOCRIT 40.5 % (39.0-51.0); LYMPH % 14.9 % (9.0-44.0); MEAN CELL VOLUME 88.8 FL (80.0-100.0); MEAN CORPUSCULAR HEMOGLOBIN 30.4 PG (27.0-34.0); MEAN CORPUSCULAR HGB CONC 34.2 % (32.0-36.0); MONO % 7.9 % (0.0-8.0); NEUT % 74.8 % (16.0-70.0); PLATELET COUNT 88 TH/MM3 (150-450); RED BLOOD COUNT 4.56 MIL/MM3 (4.50-5.90); RED CELL DISTRIBUTION WIDTH 14.5 % (11.6-17.2); WHITE BLOOD COUNT 6.9 TH/MM3 (4.0-11.0)
[2016-08-27 16:02] LABS: HEMO FLAGS AUTO DIFF
[2016-08-27 16:08] LABS: I-STAT POTASSIUM 4.2 MMOL/L (3.5-4.9); I-STAT SODIUM 134 MMOL/L (138-146)
--- NOTE | 2016-08-27 16:09 | RADRPT ---
EXAM DATE/TIME: 08/27/2016 15:43 [facility] COMPARISON: MRI BRAIN W/O CONTRAST, August 25, 2016, 12:14. CT BRAIN W/O CONTRAST, August 24, 2016, 19:10. INDICATIONS : Stroke alert; Right sided weakness and facial droop. RADIATION DOSE: 29.19 CTDIvol (mGy) This report was called by Dr. Nuno to Dr. Lorenzana at 4 PM on 08/27/16. MEDICAL HISTORY : Cardiovascular disease. Hypertension. SURGICAL HISTORY : None. ENCOUNTER: Initial ACUITY: 1 day PAIN SCALE: 0/10 LOCATION: Cranial TECHNIQUE: Multiple contiguous axial images were obtained of the head. Using automated exposure control and adj ustment of the mA and/or kV according to patient size, radiation dose was kept as low as reasonably a chievable to obtain optimal diagnostic quality images. FINDINGS: There is no acute infarct, acute hemorrhage, mass effect or extra-axial fluid collections. No signifi cant changes in the scattered periventricular white matter small vessel ischemic changes are noted. Old lacunar infarcts are also again noted predominantly within the right basal ganglia. Cerebral atr ophy is stable. CONCLUSION: 1. No acute infarct, acute hemorrhage, mass effect or extra-axial fluid collections. 2. Stable periventricular and subcortical white matter small vessel ischemic changes. 3. 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 4. Stable atrophy. Ryan Nuno MD on August 27, 2016 at 16:00 Board Certified Radiologist. This report was verified electronically.
[2016-08-27 16:18] LABS: PLATELET ESTIMATE SMEAR LOW (NORMAL); PLATELET MORPHOLOGY NORMAL (NORMAL); SCAN/DIFF AUTO DIFF CONFIRMED
[2016-08-27 16:23] LABS: APTT (PATIENT) 32.7 SEC (24.3-30.1); INTERNATIONAL NORMALIZED RATIO 1.4 RATIO; PROTHROMBIN TIME - PATIENT 15.4 SEC (9.8-11.6)
[2016-08-27 16:34] LABS: CREATINE KINASE 100 U/L (39-308)
--- NOTE | 2016-08-27 17:01 | PD ---
HPI Chief Complaint: Stroke Alert Time Seen by Provider: 15:35 Travel History International Travel<30 days: No Contact w/Intl Traveler<30days: No History of Present Illness HPI 86-year-old man, presents to the emergency department from the [place] with strokelike symptoms. He was recently admitted for TIA symptoms with right sided weakness. This appeared to completely resolve. Workup was generally unremarkable with the exception of some left carotid stenosis, 50-70%. MRI and CT head were all negative. Patient was a [place] for follow-up. He then had abrupt onset of right sided weakness slumped over the right side. They called 911 and this resolved by the time EMS arrived. With EMS he reported only today felt unwell, did not have much recollection of events. Did state he felt generally unwell. No headache. No other complaints. Upon arrival to the emergency department, will still with EMS, he had the abrupt onset of aphasia, staring, and apparent confusion. Stroke alert was called at that time. PFSH Past Medical History Hx Anticoagulant Therapy: Yes Asthma: No Atrial Fibrillation: Yes Blood Disorders: No Anxiety: No Heart Rhythm Problems: No Cancer: Yes (PROSTATE, SHOULDER LEISON ) Cardiovascular Problems: Yes High Cholesterol: No Chemotherapy: No Chest Pain: Yes Congestive Heart Failure: No COPD: No Cerebrovascular Accident: No Coronary Artery Disease: Yes Diabetes: No Diminished Hearing: Yes ([place] BAND BOTH EARS) Endocrine: Yes (hypothriodism) Gastrointestinal Disorders: Yes GERD: Yes Genitourinary: No Hypertension: Yes Musculoskeletal: Yes Neurologic: Yes Psychiatric: No Reproductive: No Respiratory: No Immunizations Current: Yes Radiation Therapy: Yes (PROSTATE) Sleep Apnea: No Thyroid Disease: Yes Past Surgical History Appendectomy: Yes Cholecystectomy: Yes Hysterectomy: No Other Surgery: Yes Social History Alcohol Use: No Tobacco Use: No Substance Use: No Allergies-Medications (Allergen,Severity, Reaction): Coded Allergies: No Known Allergies (Unverified , 08/27/16) Reported Meds & Prescriptions Reported Meds & Active Scripts Active Lipitor (Atorvastatin Calcium) 20 Mg Tab 20 Mg PO HS Norvasc (Amlodipine Besylate) 10 Mg Tab 10 Mg PO DAILY Reported Warfarin 1 Mg Tab 1 Mg PO DIRECTED Warfarin 2.5 Mg Tab 2.5 Mg PO DAILY Metoprolol Succinate ER 24 HR (Metoprolol Succinate) 50 Mg Tab 50 Mg PO DAILY Levothyroxine (Levothyroxine Sodium) 75 Mcg Tab 75 Mcg PO DAILY Apriso (Mesalamine) 0.375 Gm Caper 1.5 Gm PO DAILY Review of Systems Except as stated in HPI: all other systems reviewed are Neg Physical Exam Narrative GENERAL: 86-year-old man, staring into space, not communicating. SKIN: Warm and dry. HEAD: Atraumatic. Normocephalic. EYES: Pupils equal and round. No scleral icterus. No injection or drainage. ENT: No nasal bleeding or discharge. Mucous membranes pink and moist. NECK: Trachea midline. No JVD. CARDIOVASCULAR: Regular rate and rhythm. No murmur appreciated. RESPIRATORY: No accessory muscle use. Clear to auscultation. Breath sounds equal bilaterally. GASTROINTESTINAL: Abdomen soft, non-tender, nondistended. Hepatic and splenic margins not palpable. MUSCULOSKELETAL: No obvious deformities. No edema. NEUROLOGICAL: Awake, eyes open. Doesn't really respond to commands. We'll intermittently answer one question or state his name. We'll have some purposeful somewhat stereotyped movements with his hands, placing her mind his head. Moves all extremities equally at this time. Data Data Last Documented VS Vital Signs Date Time Temp Pulse Resp B/P Pulse Ox O2 Delivery O2 Flow Rate FiO2 08/27/16 16:57 97.8 80 20 187/94 98 Nasal Cannula 2.0 Orders Diet Npo (08/27/16 Dinner) Activity Bed Rest (08/27/16 ) Electrocardiogram (08/27/16 ) I-Stat Creatinine (08/27/16 15:38) I-Stat Profile (08/27/16 15:38) Prothrombin Time / Inr (Pt) (08/27/16 15:38) Act Partial Throm Time (Ptt) (08/27/16 15:38) Complete Blood Count With Diff (08/27/16 15:38) Fibrinogen (08/27/16 15:38) Creatine Kinase (Cpk) (08/27/16 15:38) Troponin I (08/27/16 15:38) Ua Includes Microscopic (08/27/16 15:38) Drug Screen, Random Urine (08/27/16 15:38) Ct Brain W/O Iv Contrast(Rout) (08/27/16 ) Consult Neurology (08/27/16 ) Blood Glucose (08/27/16 15:38) Ecg Monitoring (08/27/16 15:38) Neuro Checks Q2HX12,Q4H (08/27/16 15:38) Nursing Bedside Swallow Assess .ONCE (08/27/16 15:38) Iv Access Insert/Monitor (08/27/16 15:38) NPO (08/27/16 15:38) Oximetry (08/27/16 15:38) Oxygen Administration (08/27/16 15:38) Sodium Chlor 0.9% 1000 Ml Inj (Ns 1000 M (08/27/16 15:38) Resp Oxygen John C Titrat 1-4 L (08/27/16 15:38) Cath For Specimen (08/27/16 15:38) (Hub Use Only)Inp Phy Cons/Ref (08/27/16 ) Mri Brain W/O Contrast (08/27/16 ) Portable Eeg (08/27/16 ) Heparin-D5w Inj (Heparin-D5w Inj) (08/27/16 17:15) Cbc No Diff, Includes Plts (08/27/16 17:06) Cbc No Diff, Includes Plts (08/30/16 06:00) Act Partial Throm Time (Ptt) (08/27/16 17:06) Occult Blood (Hemoccult) Stool (08/27/16 17:06) Labs Laboratory Tests Test 08/27/16 15:47 White Blood Count 6.9 TH/MM3 Red Blood Count 4.56 MIL/MM3 Hemoglobin 13.9 GM/DL Bedside Hemoglobin 13.9 G/DL Hematocrit 40.5 % Bedside Hematocrit 41.0 % Mean Corpuscular Volume 88.8 FL Mean Corpuscular Hemoglobin 30.4 PG Mean Corpuscular Hemoglobin 34.2 % Concent Red Cell Distribution Width 14.5 % Platelet Count 88 TH/MM3 Mean Platelet Volume 10.5 FL Neutrophils (%) (Auto) 74.8 % Lymphocytes (%) (Auto) 14.9 % Monocytes (%) (Auto) 7.9 % Eosinophils (%) (Auto) 2.2 % Basophils (%) (Auto) 0.2 % Neutrophils # (Auto) 5.2 TH/MM3 Lymphocytes # (Auto) 1.0 TH/MM3 Monocytes # (Auto) 0.5 TH/MM3 Eosinophils # (Auto) 0.2 TH/MM3 Basophils # (Auto) 0.0 TH/MM3 CBC Comment AUTO DIFF Differential Comment AUTO DIFF CONFIRMED Platelet Estimate LOW Platelet Morphology Comment NORMAL Red Cell Morphology Comment NORMAL Prothrombin Time 15.4 SEC Prothromb Time International 1.4 RATIO Ratio Activated Partial 32.7 SEC Thromboplast Time Fibrinogen 275 mg/dL Bedside Sodium 134 MMOL/L Bedside Potassium 4.2 MMOL/L Bedside Chloride 97 MMOL/L Bedside Blood Urea Nitrogen 24 MG/DL Bedside Creatinine 1.1 MG/DL Bedside Glucose 118 MG/DL Total Creatine Kinase 100 U/L Troponin I LESS THAN 0.02 NG/ML MDM Medical Screen Exam Complete: Yes Emergency Medical Condition: Yes Differential Diagnosis TIA, CVA, seizure, mass, other Narrative Course Medical decision making 86-year-old man presents emergent department for stroke symptoms, with the intermittent right sided weakness, now resolved, with aphasia and transient alteration in consciousness. Given his presentation, stroke alert was called. Some concern for seizure as well. Dr. Emery came to the bedside. We spoke with the family. We had mixed TPA and when the process of obtaining consent when patient had spontaneous improvement and resolution of the symptoms. Patient be admitted to the hospital for further evaluation. Stroke Alert NIHSS NIH Stroke Scale Result: 9 NIHSS Time Completed: 15:38 Thrombolytic Contraindications Contraindications Comment: Resolution of symptoms Procedures Interpretation(s) My review of EKG: Physician Communication Physician Communication My review of EKG: Normal sinus rhythm at a rate of 78, normal axis, normal intervals, no acute ischemia. LABS: CBC unremarkable. Platelets 88. Point of care chemistries are unremarkable Troponins negative Coags INR 1.[address] head: No acute infarct, acute hemorrhage, mass effect or extra-axial fluid collections. Stable periventricular and subcortical white matter small vessel ischemic changes. Old tiny lacunar infarcts in the right basal ganglia. Stable atrophy. Diagnosis Diagnosis: Primary Impression: TIA (transient ischemic attack) Qualified Code: G45.9 - Transient cerebral ischemia, unspecified type Additional Impression: Paroxysmal atrial fibrillation Lauro Lorenzana MD Aug 27, 2016 17:00
[2016-08-27] MEDS ORDERED: SODIUM CHLORIDE 0.9% FLUSH 5 ML FLUSH FLUSH PRN (17:30)
[2016-08-27] MEDS ORDERED: ACETAMINOPHEN 325 MG TAB PO PRN (17:30)
[2016-08-27] MEDS ORDERED: ONDANSETRON HCL 4 MG/2 ML VIAL IVP PRN (17:30)
[2016-08-27] MEDS ORDERED: NALOXONE HCL 0.4 MG/ML AMP IV PRN (17:30)
[2016-08-27] MEDS ORDERED: BISACODYL 10 MG SUPP PR PRN (17:30)
[2016-08-27] MEDS ORDERED: MAGNESIUM HYDROXIDE SUSP 30 ML CUP PO PRN (17:30)
[2016-08-27 17:35] LABS: BACTERIA, URINE RARE /hpf; BLOOD, URINE SMALL (NEG); GLUCOSE,URINE NEG (NEG); KETONE, URINE NEG (NEG); NITRITE,URINE NEG (NEG); PH, URINE 6.5 (5.0-8.5); SQUAMOUS EPITHELIAL CELL URINE <1 /hpf (0-5); URINE COLOR YELLOW (YELLW/STRAW)
[2016-08-27 17:40] LABS: AMPHETAMINE, URINE NEG (NEG); BARBITURATES, URINE NEG (NEG); COCAINE, URINE NEG (NEG)
[2016-08-27] MEDS ORDERED: WARF-21 PO (18:09)
[2016-08-27] MEDS ORDERED: APRI0.372 PO (18:15)
[2016-08-27] MEDS: HEPARIN-D5W INJ 250 ML IV SCH (18:17)
[2016-08-27] MEDS ORDERED: MULT-135 PO (18:17)
[2016-08-27] MEDS ORDERED: FLUD.1 PO (18:17)
[2016-08-27] MEDS ORDERED: BOSW5TAB PO (18:17)
--- NOTE | 2016-08-27 19:40 | MB ---
cc: MARIAN PAINTING M.D. DATE OF CONSULTATION 08/27/16 DATE OF 1930 AGE 86 REASON FOR CONSULTATION Stroke alert. The patient is an 86-year-old man who was recently discharged from the hospital on 08/26 with a TIA diagnosis, workup was really unremarkable except for his carotid ultrasound showing 50-69% in the left carotid system. He was sent home on Coumadin since he has a history I believe of atrial fibrillation. INR on discharge was 1.6. He came in on 08/24 with 2.4 and on 08/26 he went ___ with a 1.6 INR. Continued on Coumadin. He was told to follow up with his doctor, went to the [place], had some issues with speech at the [place]. 911 was activated, he was brought to the hospital. By the time he got here he was back to baseline. This was a little bit after 3 o'clock. Subsequently while here he reverted back to being aphasic, not following commands. Went to CT. He had a CT of the head performed. The report thus far is pending. However, I am reviewing it initially and per my view I do not see any bleed. There may be some questionable hypodensity in the left hemisphere, in the basal ganglion area. LABORATORY DATA The patient's labs are pending. Chemistries are done. The coags are not back. PHYSICAL EXAMINATION NEURO: On exam he is awake and alert. Pupils reactive. His face is symmetrical. Tongue is midline. He was able to stick his tongue out for me and said the words right and left but without any sense, does not sound slurred. He is aphasic, more of a receptive type aphasia. Motor chen, he can lift both arms up antigravity and squeeze my hands, while I am mimicking it for him. He can lift both legs up. I do not see any drift or leg lag. His toes withdraws. Reflexes are 1+ sensory, withdraws to painful stimuli. Visual [place] difficult to assess at this time. Labs are still pending but his CBC shows a platelet count of 88,000. He was at 71,000 on the fourth, 81,000 previously, so he has some thrombocytopenia. Chemistries, sodium is 134, glucose 118. Tox screen is pending. Coag panel still pending. Imaging, as stated, was completed. No acute infarct was seen. Some old lacunes in the right basal ganglia, atrophy and white matter disease. No bleeding. IMPRESSION An 86-year-old man with a aphasia onset was in the hospital. He is in the window for TPA. I am electing to start TPA as I am dictating. If his INR comes back and it is elevated, I will stop it immediately. His platelet counts a little low but is not below 50,000. In the event his coag panel is normal but will continue with the TPA. Will get an MRI of the brain. I am going to get a MRA of the ____ in the event that his carotids show significant stenosis, will go ahead and address that accordingly. ADDENDUM The ER physician just told me that the patient now is speaking normally. I will go and assess him at this time. I am going to hold off on TPA. Recommendations will be made further after reassessing the patient but in the interim he will have an MRI and recheck his carotids accordingly, possibly with the CT angiogram and if his INR subtherapeutic making sure his INR stays therapeutic accordingly. Further recommendations will be made. MD JESSICA Pendleton/SHAHNAZ /4:15 PM /7:23 PM
[2016-08-27] MEDS: SODIUM CHLORIDE 0.9% FLUSH 5 ML FLUSH FLUSH SCH (21:00)
--- NOTE | 2016-08-27 21:10 | RADRPT ---
EXAM DATE/TIME: 08/27/2016 20:20 [facility] COMPARISON: MRI BRAIN W/O CONTRAST, August 25, 2016, 12:14. INDICATIONS : TIA. MEDICAL HISTORY : Hypertension. Afib, orthostatic hypotension and falls. SURGICAL HISTORY : Appendectomy. Cholecystectomy. Total knee replacement, left. ENCOUNTER: Initial ACUITY: 1 day PAIN SCORE: 2/10 LOCATION: Bilateral cranial TECHNIQUE: Multiplanar, multisequence MRI of the brain was performed without contrast. FINDINGS: CEREBRUM: The ventricles are normal for age. No evidence of midline shift, mass lesion, hemorrhage or acute in farction. No extraaxial fluid collections are seen. The pituitary gland and suprasellar cistern are normal in configuration. WHITE MATTER: Moderate signal abnormalities are seen in the white matter. POSTERIOR FOSSA: The cerebellum and brainstem are intact. The 4th ventricle is midline. The cerebellopontine angle is unremarkable. The cerebellar tonsils are normal in position. DIFFUSION IMAGING: No focal areas of restricted diffusion are seen. No evidence of acute infarction. EXTRACRANIAL: The visualized portions of the orbits and paranasal sinuses are unremarkable. CONCLUSION: 1. Moderate chronic ischemic changes in the white matter. No recent infarct. No mass, hemorrhage or s hift. No significant change from August 25. Dany Park MD on August 27, 2016 at 21:04 Board Certified Radiologist. This report was verified electronically.
[2016-08-28] VITALS (9 sets, daily range): BP systolic 72–157; BP diastolic 43–74; PULSE 69–82; RESP 18–20; TEMP 95.8–97.1; O2SAT 93–98
[2016-08-28 01:40] LABS: APTT (PATIENT) 52.3 SEC (24.3-30.1)
--- NOTE | 2016-08-28 01:45 | HHI.HP ---
[facility] Primary [facility] Physician Kareem Rubin MD Admission Diagnosis TIA Diagnoses: (1) TIA (transient ischemic attack) (2) Hyponatremia (3) Thrombocytopenia Chief Complaint: weakness and near syncope Travel History International Travel<30 Days: No Contact w/Intl Traveler <30 Da: No Traveled to Known Affected Are: No History of Present Illness Mr. Mark is an 86-year-old male with a past medical history of atrial fibrillation on Coumadin (INR 1.4 in ER), left carotid artery stenosis, hypertension, hypothyroidism, orthostatic hypotension, prostate cancer, and coronary artery disease was brought to the emergency room for symptoms of right hemiparesis on 08/27/2016. He was recently seen as a stroke alert on 08/24/16 and was discharged 08/26/2016. The workup during that admission was negative except carotid ultrasound on 08/25/2016 which showed elevated velocity/ratio and left carotid system suggesting a 50-69% stenosis with no significant stenosis noted in the right carotid artery. The patient was at the [facility] for a follow-up related to his previous hospitalization (mentioned above) when he had abrupt onset of right-sided weakness and slumped over to the right side. 911 was alerted by staff at the [place] and his symptoms had resolved by the time EMS arrived. While he was in our emergency room, he had an abrupt onset of aphasia, staring, and apparent confusion. Stroke alert was called. He was seen and evaluated by Dr. Luna, neurologist and also was started on a heparin drip. Head CT with no acute infarct, acute hemorrhage, mass effect, or extra-axial fluid collections. Stable. Ventricular and subcortical white matter small vessel ischemic changes are noted. Old tiny lacunar infarcts with thin the right basal ganglia. Stable atrophy. Brain MRI with moderate chronic ischemic changes in the white matter. No recent infarcts, masses, hemorrhage, or shift. No significant change from prior study on August 25. The patient was seen in the CDU this morning. He states he was at [facility] and his arm felt numb and he felt like he was going to pass out. [facility] laid him out on the table and called 911. Symptoms were severe and patient is concerned that this continues to happen with no explanation. . Review of Systems Constitutional: COMPLAINS OF: Dizziness, DENIES: Fever Respiratory: DENIES: Cough, Shortness of breath Cardiovascular: COMPLAINS OF: Syncope (near syncope), DENIES: Chest pain Gastrointestinal: DENIES: Black stools, Bloody stools, Diarrhea, Nausea, Vomiting Genitourinary: DENIES: Dysuria Neurologic: COMPLAINS OF: Paresthesias (right side) Other 10 point system reviewed and other than what is mentioned in history of present illness and ROS, systems are negative . Past Family Social History Past Medical History Syncopal episodes due to orthostasis Atrial fibrillation Carotid artery stenosis Hypothyroidism Hypertension Prostate CA s/p radiation 6 years ago . Past Surgical History Collar bone repair Cholecystectomy Left knee surgery Appendectomy . Reported Medications Reported Meds & Active Scripts Active Lipitor (Atorvastatin Calcium) 20 Mg Tab 20 Mg PO HS Norvasc (Amlodipine Besylate) 10 Mg Tab 10 Mg PO DAILY Reported Osteo Bi-Flex One A Day (Qctmbfaty-Fkmlbpxwati-Mbuzsww) 1 Tab 1 Tab PO AC DINNER Multi Vitamin (Multiple Vitamin) 1 Tab Tab 1 Tab PO AC DINNER Fludrocortisone (Fludrocortisone Acetate) 0.1 Mg Tab 0.1 Mg PO DAILY Apriso (Mesalamine) 0.375 Gm Caper 0.75 Gm PO DAILY Warfarin 7.5 Mg Tab 7.5 Mg PO HS Warfarin 1 Mg Tab 1 Mg PO MOWEFR Metoprolol Succinate ER 24 HR (Metoprolol Succinate) 50 Mg Tab 50 Mg PO DAILY Levothyroxine (Levothyroxine Sodium) 75 Mcg Tab 75 Mcg PO DAILY . Allergies: Coded Allergies: No Known Allergies (Unverified , 08/27/16) Active Ordered Medications Current Medications Sodium Chloride 1,000 ml @ 70 mls/hr [id number] ONCE IV Last administered on 17:31; Start 08/27/16 at 15:38; Stop 08/28/16 at 05:55 Heparin Sodium/ Dextrose (Heparin-D5W Inj) 250 ml @ 0 mls/hr TITRATE IV Last administered on 08/27/16 18:17; Start 08/27/16 at 17:15 IV Flush (NS Flush) 2 ml UNSCH PRN FLUSH FLUSH AFTER USING IV ACCESS; Start 08/27/16 at 17:30 IV Flush (NS Flush) 2 ml BID FLUSH ; Start 08/27/16 at 21:00 Acetaminophen (Tylenol) 650 mg Q4H PRN PO Fever, headache, pain 1-4; Start 08/27 at 17:30 Ondansetron HCl (Zofran Inj) 4 mg Q6H PRN IVP NAUSEA OR VOMITING; Start at 17:30 Bisacodyl (Dulcolax Supp) 10 mg DAILY PRN [place] CONSTIPATION; Start 08/27/16 at 17: 30 Magnesium Hydroxide (Milk Of Christie Liq) 30 ml Q12H PRN PO CONSTIPATION; Start 08/27/16 at 17:30 Naloxone HCl (Narcan Inj) 0.4 mg UNSCH PRN IV SEE LABEL COMMENTS; Start at 17:30 Family History Mother with diabetes mellitus and CVA Father with heart disease Sister with HI . Social History Tobacco: denies Alcohol: denies Illicit Drugs: denies . Physical Exam Vital Signs Vital Signs Date Time Temp Pulse Resp B/P Pulse Ox O2 Delivery O2 Flow Rate FiO2 08/28/16 00:19 69 08/27/16 23:57 98.1 78 18 161/77 94 08/27/16 23:08 74 20 163/83 95 08/27/16 18:25 73 19 176/68 99 Nasal Cannula 2.0 08/27/16 17:34 97 Nasal Cannula 2.00 08/27/16 16:57 97.8 80 20 187/94 98 Nasal Cannula 2.0 08/27/16 16:56 98 Nasal Cannula 2.0 08/27/16 16:46 Nasal Cannula 2.0 08/27/16 15:49 81 200/101 08/27/16 15:32 97.8 87 22 189/84 98 08/27/16 15:30 100 2.00 Physical Exam GENERAL: This is a well-nourished, well-developed patient, in no apparent distress. He is eager to return home. SKIN: No rashes, ecchymoses or lesions. Cool and dry. HEAD: Atraumatic. Normocephalic. EYES: No scleral icterus. No injection or drainage. ENT: Nose without bleeding, purulent drainage. The patient is very hard of hearing which limits the examination. NECK: Trachea midline. No JVD or lymphadenopathy. CARDIOVASCULAR: Regular rate and rhythm without murmurs, gallops, or rubs. RESPIRATORY: Clear to auscultation. Breath sounds equal bilaterally. No wheezes , rales, or rhonchi. GASTROINTESTINAL: Abdomen soft, non-tender, nondistended. No guarding. MUSCULOSKELETAL: Extremities without clubbing, cyanosis, or edema. No calf tenderness. NEUROLOGICAL: Awake and alert. Normal speech; Right arnp strength 4/5 on right; left arnp 5/5; lower extremities with equal muscle strength. The patient is very hard of hearing which limits the examination. . Laboratory Laboratory Tests Test 08/27/16 08/27/16 15:47 16:40 White Blood Count 6.9 Red Blood Count 4.56 Hemoglobin 13.9 Bedside Hemoglobin 13.9 Hematocrit 40.5 Bedside Hematocrit 41.0 Mean Corpuscular Volume 88.8 Mean Corpuscular Hemoglobin 30.4 Mean Corpuscular Hemoglobin 34.2 Concent Red Cell Distribution Width 14.5 Platelet Count 88 Mean Platelet Volume 10.5 Neutrophils (%) (Auto) 74.8 Lymphocytes (%) (Auto) 14.9 Monocytes (%) (Auto) 7.9 Eosinophils (%) (Auto) 2.2 Basophils (%) (Auto) 0.2 Neutrophils # (Auto) 5.2 Lymphocytes # (Auto) 1.0 Monocytes # (Auto) 0.5 Eosinophils # (Auto) 0.2 Basophils # (Auto) 0.0 CBC Comment AUTO DIFF Differential Comment AUTO DIFF CONFIRMED Platelet Estimate LOW Platelet Morphology Comment NORMAL Red Cell Morphology Comment NORMAL Prothrombin Time 15.4 Prothromb Time International 1.4 Ratio Activated Partial 32.7 Thromboplast Time Fibrinogen 275 Bedside Sodium 134 Bedside Potassium 4.2 Bedside Chloride 97 Bedside Blood Urea Nitrogen 24 Bedside Creatinine 1.1 Bedside Glucose 118 Total Creatine Kinase 100 Troponin I LESS THAN 0.02 Urine Color YELLOW Urine Turbidity CLEAR Urine pH 6.5 Urine Specific [place] 1.010 Urine Protein NEG Urine Glucose (UA) NEG Urine Ketones NEG Urine Occult Blood SMALL Urine Nitrite NEG Urine Bilirubin NEG Urine Urobilinogen LESS THAN 2.0 Urine Leukocyte Esterase NEG Urine RBC 9 Urine WBC LESS THAN 1 Urine Squamous Epithelial <1 Cells Urine Bacteria RARE Urine Opiates Screen NEG Urine Barbiturates Screen NEG Urine Amphetamines Screen NEG Urine Benzodiazepines Screen NEG Urine Cocaine Screen NEG Urine Cannabinoids Screen NEG Result Diagram: 08/27/16 1547 Imaging Last Impressions Head CT 08/27/16 0000 Signed Impressions: Service Date/Time: Saturday, August 27, 2016 15:43 - CONCLUSION: 1. No acute infarct, acute hemorrhage, mass effect or extra-axial fluid collections. 2. Stable periventricular and subcortical white matter small vessel ischemic changes. 3. 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 4. Stable atrophy. Ryan Nuno MD Brain MRI 08/27/16 0000 Signed Impressions: Service Date/Time: Saturday, August 27, 2016 20:20 - CONCLUSION: 1. Moderate chronic ischemic changes in the white matter. No recent infarct. No mass, hemorrhage or shift. No significant change from August 25. Dany Park MD . Assessment and Plan Problem List: (1) TIA (transient ischemic attack) ICD Code: G45.9 Status: Acute (2) Hyponatremia ICD Code: E87.1 Status: Acute (3) Thrombocytopenia ICD Code: D69.6 Status: Chronic Assessment and Plan TIA - PT, OT, ST - Diet nothing by mouth until swallow evaluation performed - Continuous cardiac telemetry to monitor for arrhythmia - Neurochecks every 4 hours - Vital signs every 4 hours - Out of bed with assistance only - Neurology consulted; appreciate Dr. Almeida assistance - Portable EEG ordered; pending - Continue heparin drip and bridge until Coumadin therapeutic (INR 1.4 on admit ) - resume home coumadin; monitor for therapeutic dose/therapeutic INR - orthostatic vital signs; measure standing bp only - hold home bp medications for now as patient complaining of near-syncope Mild hyponatremia - replace with NS IVF at 70 cc/hr - recheck bmp in a.m. and follow results Chronic Thrombocytopenia (of undetermined origin refused marrow studies) - seen by Dr. Ding for monitoring in the past reconsult if needed - platelet count 88,000 on admission - recheck CBC and follow trends in platelet counts DVT prophylaxis - Heparin gtt/Coumadin Written by Becka Beltran, acting as scribe for Dr. Earl on 08/28/16 at 01:44. The documentation accurately reflects the work performed [id number] by me on at 0144 . Discussed Condition With patient and RN . Physician Certification 2 Midnight Certification Type: Admission for Inpatient Services Order for Inpatient Services The services are ordered in accordance with Medicare regulations or non- Medicare payer requirements, as applicable. In the case of services not specified as inpatient-only, they are appropriately provided as inpatient services in accordance with the 2-midnight benchmark. Estimated LOS (days): 3 days is the estimated time the patient will need to remain in the hospital, assuming treatment plan goals are met and no additional complications. Post-Hospital Plan: Not yet determined Problem Qualifiers (1) TIA (transient ischemic attack): Qualified Code: G45.9 - Transient cerebral ischemia, unspecified type Becka Beltran Aug 28, 2016 01:45 Susanne Earl MD Aug 28, 2016 08:51
[2016-08-28] MEDS: LEVOTHYROXINE SODIUM 75 MCG TAB PO SCH (05:54)
[2016-08-28 07:57] LABS: AUTOMATED NEUTROPHIL # 4.6 TH/MM3 (1.8-7.7); BASOPHIL % 0.3 % (0.0-2.0); EOSINOPHIL # 0.1 TH/MM3 (0-0.4); EOSINOPHIL % 2.3 % (0.0-4.0); HEMATOCRIT 41.2 % (39.0-51.0); LYMPH % 14.8 % (9.0-44.0); LYMPHOCYTE # 0.9 TH/MM3 (1.0-4.8); MEAN CELL VOLUME 87.9 FL (80.0-100.0); MEAN CORPUSCULAR HGB CONC 34.1 % (32.0-36.0); MONO % 9.4 % (0.0-8.0); NEUT % 73.2 % (16.0-70.0); PLATELET COUNT 77 TH/MM3 (150-450); RED BLOOD COUNT 4.69 MIL/MM3 (4.50-5.90); RED CELL DISTRIBUTION WIDTH 13.8 % (11.6-17.2); WHITE BLOOD COUNT 6.3 TH/MM3 (4.0-11.0)
[2016-08-28 08:00] LABS: HEMO FLAGS AUTO DIFF
[2016-08-28 08:09] LABS: BICARBONATE 26.5 MEQ/L (21.0-32.0)
[2016-08-28 08:49] LABS: PLATELET ESTIMATE SMEAR LOW (NORMAL); PLATELET MORPHOLOGY ENLARGED (NORMAL); SCAN/DIFF AUTO DIFF CONFIRMED
[2016-08-28] MEDS ORDERED: APRISO 0.375 GM PO SCH (09:00)
[2016-08-28] MEDS: SODIUM CHLORIDE 0.9% FLUSH 5 ML FLUSH FLUSH SCH ×2 (09:00→21:11)
[2016-08-28] MEDS: FLUDROCORTISONE ACETATE 0.1 MG TAB PO SCH (09:31)
[2016-08-28] MEDS ORDERED: SODIUM CHLOR 0.9% 1000 ML INJ 1,000 ML IV ONE (09:45)
--- NOTE | 2016-08-28 10:02 | HHI.PR ---
Subjective Remarks Follow up for TIA. The patient denies any further episodes overnight. He denies any chest pain, palpitations, shortness of breath, weakness, numbness, slurred speech. Discussed with family at bedside. His auger press operator is Dr. Siddiqui. A few months ago Dr. Siddiqui started him on fludrocortisone for hypotension. Family requesting for Dr. Siddiqui to be consulted. Patient still with severe orthostatic hypotension. Objective Vitals Vital Signs Date Time Temp Pulse Resp B/P Pulse Ox O2 Delivery O2 Flow Rate FiO2 08/28/16 08:54 97 08/28/16 07:51 97.1 82 20 81/50 96 08/28/16 05:49 95.8 70 20 141/70 98 127/62 102/57 08/28/16 00:19 69 08/27/16 23:57 98.1 78 18 161/77 94 08/27/16 23:08 74 20 163/83 95 08/27/16 23:00 98 Nasal Cannula 2.00 08/27/16 18:25 73 19 176/68 99 Nasal Cannula 2.0 08/27/16 17:34 97 Nasal Cannula 2.00 08/27/16 16:57 97.8 80 20 187/94 98 Nasal Cannula 2.0 08/27/16 16:56 98 Nasal Cannula 2.0 08/27/16 16:46 Nasal Cannula 2.0 08/27/16 15:49 81 200/101 08/27/16 15:32 97.8 87 22 189/84 98 08/27/16 15:30 100 2.00 I/O 08/27/16 08/27/16 08/27/16 08/28/16 08/28/16 08/28/16 07:00 15:00 23:00 07:00 15:00 23:00 Output Total 1200 ml Balance -1200 ml Output Urine Total 1200 ml # Voids 1 Result Diagram: 08/28/16 0730 08/28/16 0730 Imaging Last Impressions Head CT 08/27/16 0000 Signed Impressions: Service Date/Time: Saturday, August 27, 2016 15:43 - CONCLUSION: 1. No acute infarct, acute hemorrhage, mass effect or extra-axial fluid collections. 2. Stable periventricular and subcortical white matter small vessel ischemic changes. 3. 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 4. Stable atrophy. Ryan Nuno MD Brain MRI 08/27/16 0000 Signed Impressions: Service Date/Time: Saturday, August 27, 2016 20:20 - CONCLUSION: 1. Moderate chronic ischemic changes in the white matter. No recent infarct. No mass, hemorrhage or shift. No significant change from August 25. Dany Park MD Objective Remarks GENERAL: Well-nourished, well-developed elderly male patient in [facility]. SKIN: Warm and dry. No rash. HEAD: Normocephalic. Atraumatic. EYES: Pupils equal and round. No scleral icterus. No injection or drainage. ENT: No nasal bleeding or discharge. Mucous membranes pink and moist. NECK: Supple. Trachea midline. CARDIOVASCULAR: Regular rate and rhythm. S1, S2 noted. No murmur appreciated. RESPIRATORY: No accessory muscle use. Clear to auscultation. Breath sounds equal bilaterally. GASTROINTESTINAL: Abdomen soft, non-tender, nondistended. Normoactive bowel sounds x4. MUSCULOSKELETAL: No obvious deformities. Extremities without clubbing, cyanosis , or edema. NEUROLOGICAL: Awake and alert. No obvious cranial nerve deficits. Motor grossly within normal limits. 5/5 muscle strength in bilateral upper and lower extremities. Normal speech. PSYCHIATRIC: Appropriate mood and affect; insight and judgment normal. Medications and IVs Current Medications Medications (Trade) Dose Ordered Sig/Vj Route Start Time Stop Time Status Last Admin (Heparin-D5W Inj) 250 ml @ 0 mls/hr TITRATE IV 08/27/16 17:15 08/27/16 18:17 (NS Flush) 2 ml UNSCH PRN FLUSH 08/27/16 17:30 (NS Flush) 2 ml BID FLUSH 08/27/16 21:00 (Tylenol) 650 mg Q4H PRN PO 08/27/16 17:30 (Zofran Inj) 4 mg Q6H PRN IVP 08/27/16 17:30 (Dulcolax Supp) 10 mg DAILY PRN SD 08/27/16 17:30 (Milk Of Magnesia Liq) 30 ml Q12H PRN PO 08/27/16 17:30 (Narcan Inj) 0.4 mg UNSCH PRN IV 08/27/16 17:30 (Lipitor) 20 mg HS PO 08/28/16 21:00 (Florinef) 0.1 mg DAILY PO 08/28/16 09:00 08/28/16 09:31 (Synthroid) 75 mcg DAILY@06 PO 08/28/16 06:00 08/28/16 05:54 (Coumadin) 1 mg MoWeFr@16 PO 08/29/16 02:00 (Coumadin) 7.5 mg DAILY@16 PO 08/28/16 16:00 Patient Own Medication PT OWN MED: APRISO (MESALAMI... DAILY PO 08/28/16 14:00 08/28/16 15:26 Urinary Catheter: No Vascular Central Line Catheter: No A/P Problem List: (1) TIA (transient ischemic attack) ICD Code: G45.9 Status: Acute (2) Hyponatremia ICD Code: E87.1 Status: Acute (3) Thrombocytopenia ICD Code: D69.6 Status: Chronic Assessment and Plan 86-year-old male with a past medical history of atrial fibrillation on Coumadin (INR 1.4 in ER), left carotid artery stenosis, hypothyroidism, orthostatic hypotension, prostate cancer, and CAD was brought to the ED for symptoms of right weakness on 08/27/2016. Recently seen as a stroke alert on 08/24/16, discharged 08/26/2016, workup negative except carotid U/S on 08/25/2016 showed elevated velocity/ratio and left carotid system suggesting a 50-69% stenosis with no significant stenosis noted in the right carotid artery. TIA - PT, OT, ST consults, recommends rehab vs [facility] PT - Monitor on telemetry, Neurochecks - Head CT and brain MRI with chronic changes, no acute findings - Neurology consulted; appreciate Dr. Almeida assistance - Portable EEG results pending - Continue heparin drip and bridge until Coumadin therapeutic (INR 1.4 on admit ) - resume home coumadin; monitor for therapeutic dose/therapeutic INR Orthostatic Hypotension: likely contributing to symptoms as above - sanya bucke - continue fludrocortisone - given IVF bolus today - consult patient's auger press operator Dr. Siddiqui Atrial Fibrillation on Coumadin, rate controlled - not on any rate controlling medications however HR mostly in 70s - continue anticoagulation with Coumadin, and Heparin drip until INR therapeutic , currently 1.4 Mild hyponatremia - replace with NS IVF at 70 cc/hr - repeat BMP improved with Na 137 Chronic Thrombocytopenia (of undetermined origin refused marrow studies) - seen by Dr. Ding for monitoring in the past reconsult if needed - platelet count 88,000 on admission - follow trends in platelet counts All other medical conditions stable, continue home medications as appropriate. DVT prophylaxis - Heparin gtt/Coumadin Written by Sari Leahy, acting as scribe for Dr. Ryder on 08/28/16 at 09:58. The documentation accurately reflects the work performed [id number] by me Dr. Ryder on 08/28/16 at 09:58. Problem Qualifiers (1) TIA (transient ischemic attack): Qualified Code: G45.9 - Transient cerebral ischemia, unspecified type Sari Leahy PA-C Aug 28, 2016 10:01 Nichole Ryder MD Aug 28, 2016 17:09
[2016-08-28 11:09] LABS: INTERNATIONAL NORMALIZED RATIO 1.3 RATIO; PROTHROMBIN TIME - PATIENT 14.3 SEC (9.8-11.6)
--- NOTE | 2016-08-28 14:18 | MB ---
cc: MEKA CORONEL M.D. DATE OF CONSULTATION: 08/28/2016 REASON FOR CONSULTATION Transient ischemic attack/syncope, history of atrial fibrillation. HISTORY OF PRESENT ILLNESS The patient is an 86-year-old white male with a history of hypertension, hypothyroidism, paroxysmal atrial fibrillation, chronic recurrent syncope which in the past was felt possibly due to orthostatic hypotension and/or vasovagal mediated events, status post recent admission for possible transient ischemic attack, who was brought back to the hospital yesterday with recurrent neurological changes including aphasia and confusion. The patient cannot recall losing consciousness yesterday but did feel mild to moderately lightheaded for a few seconds after standing up quickly. The patient has been maintained recently on Florinef with resolution of his dizziness symptoms. As I recall he also stopped a prostate medication which improved his dizziness. He denies chest pain, shortness of breath, palpitations, pedal edema, paroxysmal nocturnal dyspnea, fevers, headache, syncope. PAST MEDICAL HISTORY 1. Hypertension. 2. Hypothyroidism. 3. Paroxysmal atrial fibrillation. 4. History of multiple episodes of syncope last year, status post surgical implantation of a loop recorder February 2016. 5. Transient ischemic attack 08/24/2016. MEDICATIONS His cardiac medications at home: 1. Warfarin taken as directed. 2. Metoprolol succinate 50 mg q. daily. 3. Florinef 0.1 mg q. daily. 4. Lipitor 20 mg q.h.s. 5. Amlodipine 10 mg q. daily. ALLERGIES No known drug allergies. FAMILY HISTORY Noncontributory. SOCIAL HISTORY The patient denies any history of alcohol or tobacco abuse. REVIEW OF SYSTEMS As in the history of present illness, otherwise negative or noncontributory. He also denies visual changes, unilateral weakness or numbness, melena, dyspepsia, bright red blood per rectum. PHYSICAL EXAMINATION On physical examination his blood pressure is 129/61 with a pulse of 74, respirations 20. GENERAL: In general he is a well-developed, well-nourished white male in no acute distress. HEENT/NECK: Jugular venous pressure is normal. Carotid pulses are 2+ bilaterally and without bruits. CHEST: Examination of the chest reveals clear lung [place]. CARDIAC: On cardiac examination he has a regular rhythm and rate without S3, S4, or murmur. ABDOMEN: On abdominal examination he has a soft, nontender abdomen. Bowel sounds are present. There is no definite hepatosplenomegaly. EXTREMITIES: Examination of the extremities reveals no clubbing, cyanosis or edema. LABORATORY DATA Laboratory data includes WBC 6.3, hemoglobin 14.1, platelets 77, potassium 4.0, BUN 17, creatinine 0.87, INR 1.3. IMPRESSION Recurrent transient ischemic attack in this 86-year-old white male with a history of hypertension, hypothyroidism, paroxysmal atrial fibrillation, status post recent admission for transient ischemic attack. So far on monitoring he has demonstrated no evidence for recurrent atrial fibrillation. His INR was subtherapeutic on admission. Interrogation of his implantable loop recorder is pending. I have maintained the patient on Florinef for recurrent episodes of syncope last year, felt possibly due to vasovagal mediated events with a predominately vasodepressor component and possibly orthostatic hypotension as well. He has done well on Florinef just once a day; as I recall he also noted considerable improvement after stopping some prostate medication. He does demonstrate considerable orthostatic hypotension on vital signs here in the hospital. On the other hand, as noted above, he has had minimal to no problems with dizziness or recurrent syncope in the last several weeks. RECOMMENDATIONS 1. Continue warfarin to achieve an INR of 2 to 2.5; consider changing to a different anticoagulation medication such as Xarelto or Eliquis. 2. Will interrogate his implantable loop recorder to rule out recurrent atrial fibrillation. 3. Overall I would be reluctant to increase his Florinef dosing with his labile blood pressures. MD KAYLAN Stevenson/NEFTALI /1:13 PM /2:05 PM MICHELLE
[2016-08-28] MEDS: APRISO 0.375 GM PO SCH (15:26)
--- NOTE | 2016-08-28 15:57 | HHI.PR ---
Subjective Remarks orthostatic speech normal. Objective Vital Signs Date Time Temp Pulse Resp B/P Pulse Ox O2 Delivery O2 Flow Rate FiO2 08/28/16 15:11 79 20 157/74 93 08/28/16 11:12 97.0 74 20 129/61 93 91/53 72/43 08/28/16 11:00 73 08/28/16 08:54 97 08/28/16 08:00 72 08/28/16 07:51 97.1 82 20 81/50 96 08/28/16 05:49 95.8 70 20 141/70 98 127/62 102/57 08/28/16 00:19 69 08/27/16 23:57 98.1 78 18 161/77 94 08/27/16 23:08 74 20 163/83 95 08/27/16 23:00 98 Nasal Cannula 2.00 08/27/16 18:25 73 19 176/68 99 Nasal Cannula 2.0 08/27/16 17:34 97 Nasal Cannula 2.00 08/27/16 16:57 97.8 80 20 187/94 98 Nasal Cannula 2.0 08/27/16 16:56 98 Nasal Cannula 2.0 08/27/16 16:46 Nasal Cannula 2.0 I/O 08/27/16 08/27/16 08/27/16 08/28/16 08/28/16 08/28/16 07:00 15:00 23:00 07:00 15:00 23:00 Output Total 1200 ml Balance -1200 ml Output Urine Total 1200 ml # Voids 1 awake and alert [place] even with hearing aids fluent perrla motor intact. Result Diagram: 08/28/1630 08/28/16 0730 Imaging inr mri no stroke ptt 49 inr 1.3 Assessment and Plan Assessment and Plan tia orthostatic hypotension ?a fib. -asa qd -florinef sanya hose salt ,fluids inr goal 2.0 d/c planning. Nereyda Luna MD Aug 28, 2016 15:57
[2016-08-28] MEDS: WARFARIN SOD 7.5 MG TAB PO SCH (16:00)
--- NOTE | 2016-08-28 17:36 | EKG ---
Date Performed: 08/27/2016 Time Performed: 16:43:54 PTAGE: 86 years EKG: Sinus rhythm Since PREVIOUS TRACING , no significant change noted NORMAL ECG WARNING: DATA QUALITY MAY AFFEC T INTERPRETATION PREVIOUS TRACIN08/24/2016 19.31.36 DOCTOR: Eric Osborn Interpretating Date/Time 08/28/2016 17:34:47
[2016-08-28] MEDS: ATORVASTATIN 20 MG TAB PO SCH (21:00)
[2016-08-29] VITALS (13 sets, daily range): BP systolic 102–187; BP diastolic 54–91; PULSE 73–107; RESP 17–20; TEMP 96.4–98.3; O2SAT 91–95
[2016-08-29] MEDS: WARFARIN SOD 1 MG TAB PO SCH ×2 (02:10→16:21)
[2016-08-29] MEDS: LEVOTHYROXINE SODIUM 75 MCG TAB PO SCH (05:44)
[2016-08-29 06:29] LABS: INTERNATIONAL NORMALIZED RATIO 1.1 RATIO; PROTHROMBIN TIME - PATIENT 12.7 SEC (9.8-11.6)
--- NOTE | 2016-08-29 08:23 | MG ---
cc: FISH MUNOZ Lab No: [id number] Date: 08/29/2016 Age: Sex: M Race: NOTE Hyperventilation not performed. INDICATIONS Right-sided weakness, aphasia. An 89-year-old man with A-fib. FINDINGS Diffuse 7 Hz rhythm is seen. The recording is overall synchronous and symmetric. I do not see any specific left hemisphere or left temporal lobe abnormalities. The recording overall is synchronous and symmetric. Hyperventilation is not performed. Photic stimulation was performed without significant posterior driving. IMPRESSION Mild diffuse theta slowing consistent with a mild diffuse encephalopathy but no focal abnormalities were noted. No seizure activity was seen. Specifically, no left temporal lobe abnormalities were noted. MD VALERIE Francis/SSB /8:05 AM /8:18 AM
--- NOTE | 2016-08-29 08:37 | PD.CARD.PN ---
Subjective Subjective Remarks Denies dizziness, CP, dyspnea, palpitations. Slept well. Objective Medications Item Value Date Time Warfarin Sodium 1 mg 08/29/16 0200 (Coumadin) MoWeFr@16/PO 08/29/16 0210 Atorvastatin 20 mg 08/28/16 2100 Calcium HS/PO 08/28/16 2100 (Lipitor) Warfarin Sodium 7.5 mg 08/28/16 1600 (Coumadin) DAILY@16/PO 08/28/16 1600 Fludrocortisone 0.1 mg 08/28/16 0900 Acetate DAILY/PO 08/28/16 0931 (Florinef) Heparin Sodium/ 250 ml @ 0 mls/hr 08/27/16 1715 Dextrose TITRATE/IV 08/27/16 1817 Vital Signs / I&O Vital Signs Date Time Temp Pulse Resp B/P Pulse Ox O2 Delivery O2 Flow Rate FiO2 08/29/16 07:51 92 21 08/29/16 06:14 97.4 74 18 156/74 93 143/77 121/69 08/29/16 03:18 81 08/29/16 01:35 97.1 73 18 156/65 93 08/28/16 21:24 97.1 81 18 113/59 93 08/28/16 15:11 79 20 157/74 93 08/28/16 11:12 97.0 74 20 129/61 93 91/53 72/43 08/28/16 11:00 73 08/28/16 08:54 97 Physical Exam GENERAL: Well developed, well nourished. No acute distress. HEENT: Jugular venous pressure is normal. CHEST: Lungs clear to auscultation bilaterally. Unlabored respiratory effort. CARDIAC: Regular rate and rhythm without S3, S4, or murmur. ABDOMEN: Soft, nontender, no hepatosplenomegaly. Bowel sounds present. EXTREMITIES: No clubbing, cyanosis, or edema. Laboratory Laboratory Tests Test 08/28/16 08/28/16 08/29/16 10:42 13:10 05:42 Prothrombin Time 14.3 SEC 12.7 SEC Prothromb Time International 1.3 RATIO 1.1 RATIO Ratio Activated Partial 49.0 SEC Thromboplast Time Assessment and Plan Problem List: (1) Syncope Assessment and Plan: Stable past few weeks without recurrent loss of consciousness. Interrogation of loop recorder shows no mayo or tachyarrhythmias. Patient orthostatic on vital signs. Rec continue Florinef at current dosing. (2) Paroxysmal atrial fibrillation Assessment and Plan: Stable. Interrogation of his loop recorder shows no evidence for recurrent atrial fib. Continue warfarin. Consider resuming his beta vincenzo. (3) Hypertension Assessment and Plan: Fluctuating BP's, mostly hypertensive. Also with orthostasis as well. Rec consider resuming his beta vincenzo. Assessment and Plan As above. OK to discharge patient from a cardiac standpoint when INR therapeutic. Will f/u as needed rest of hospital stay. Code Status full code Discussed Condition With patient Problem Qualifiers (1) Syncope: Qualified Code: R55 - Syncope, unspecified syncope type (2) Hypertension: Qualified Code: I10 - Essential hypertension Maurice Siddiqui MD Aug 29, 2016 08:37
[2016-08-29] MEDS: APRISO 0.375 GM PO SCH (08:58)
[2016-08-29] MEDS: FLUDROCORTISONE ACETATE 0.1 MG TAB PO SCH (08:58)
[2016-08-29] MEDS: SODIUM CHLORIDE 0.9% FLUSH 5 ML FLUSH FLUSH SCH ×2 (08:58→22:06)
--- NOTE | 2016-08-29 09:50 | HHI.PR ---
Subjective Remarks Follow up for TIA, near syncope, orthostatic hypotension. The patient reports no further episodes overnight. Denies any slurred speech, unilateral numbness/ weakness. Denies any chest pain, shortness of breath, or palpitations. He has no other medical complaints at this time. Discussed orthostatic hypotension precautions with slow transitions from lying to sitting to standing. Seen with family at bedside. 1130hrs: Stroke alert was called, the patient was sitting upright in the chair when he had an episode of unresponsiveness, possible slurred speech. He was placed back into bed and stroke alert was called. BP was elevated 187/88 at this time. The patient improved and was AAOx4 with no new neurological deficit. Objective Vitals Vital Signs Date Time Temp Pulse Resp B/P Pulse Ox O2 Delivery O2 Flow Rate FiO2 08/29/16 09:34 90 102/54 08/29/16 09:31 88 120/91 08/29/16 08:33 96.4 80 17 159/73 92 08/29/16 07:51 92 21 08/29/16 06:14 97.4 74 18 156/74 93 143/77 121/69 08/29/16 03:18 81 08/29/16 01:35 97.1 73 18 156/65 93 08/28/16 21:24 97.1 81 18 113/59 93 08/28/16 15:11 79 20 157/74 93 08/28/16 11:12 97.0 74 20 129/61 93 91/53 72/43 08/28/16 11:00 73 Result Diagram: 08/28/1630 08/28/16 0730 Imaging Last Impressions Head CT 08/27/16 0000 Signed Impressions: Service Date/Time: Saturday, August 27, 2016 15:43 - CONCLUSION: 1. No acute infarct, acute hemorrhage, mass effect or extra-axial fluid collections. 2. Stable periventricular and subcortical white matter small vessel ischemic changes. 3. 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 4. Stable atrophy. Ryan Nuno MD Brain MRI 08/27/16 0000 Signed Impressions: Service Date/Time: Saturday, August 27, 2016 20:20 - CONCLUSION: 1. Moderate chronic ischemic changes in the white matter. No recent infarct. No mass, hemorrhage or shift. No significant change from August 25. Dany Park MD Objective Remarks GENERAL: Well-nourished, well-developed elderly male patient in [facility]. SKIN: Warm and dry. No rash. HEAD: Normocephalic. Atraumatic. EYES: Pupils equal and round. No scleral icterus. No injection or drainage. ENT: No nasal bleeding or discharge. Mucous membranes pink and moist. NECK: Supple. Trachea midline. CARDIOVASCULAR: Regular rate and rhythm. S1, S2 noted. No murmur appreciated. RESPIRATORY: No accessory muscle use. Clear to auscultation. Breath sounds equal bilaterally. GASTROINTESTINAL: Abdomen soft, non-tender, nondistended. Normoactive bowel sounds x4. MUSCULOSKELETAL: No obvious deformities. Extremities without clubbing, cyanosis , or edema. NEUROLOGICAL: Awake and alert. No obvious cranial nerve deficits. Motor grossly within normal limits. 5/5 muscle strength in bilateral upper and lower extremities. Normal speech. PSYCHIATRIC: Appropriate mood and affect; insight and judgment normal. Medications and IVs Current Medications Medications (Trade) Dose Ordered Sig/Vj Route Start Time Stop Time Status Last Admin (Heparin-D5W Inj) 250 ml @ 0 mls/hr TITRATE IV 08/27/16 17:15 08/27/16 18:17 (NS Flush) 2 ml UNSCH PRN FLUSH 08/27/16 17:30 (NS Flush) 2 ml BID FLUSH 08/27/16 21:00 08/29/16 08:58 (Tylenol) 650 mg Q4H PRN PO 08/27/16 17:30 (Zofran Inj) 4 mg Q6H PRN IVP 08/27/16 17:30 (Dulcolax Supp) 10 mg DAILY PRN ID 08/27/16 17:30 (Milk Of Magnesia Liq) 30 ml Q12H PRN PO 08/27/16 17:30 (Narcan Inj) 0.4 mg UNSCH PRN IV 08/27/16 17:30 (Lipitor) 20 mg HS PO 08/28/16 21:00 08/28/16 21:00 (Florinef) 0.1 mg DAILY PO 08/28/16 09:00 08/29/16 08:58 (Synthroid) 75 mcg DAILY@06 PO 08/28/16 06:00 08/29/16 05:44 (Coumadin) 1 mg MoWeFr@16 PO 08/29/16 02:00 08/29/16 02:10 (Coumadin) 7.5 mg DAILY@16 PO 08/28/16 16:00 08/28/16 16:00 Patient Own Medication PT OWN MED: APRISO (MESALAMI... DAILY PO 08/28/16 14:00 08/29/16 08:58 Urinary Catheter: No Vascular Central Line Catheter: No A/P Problem List: (1) TIA (transient ischemic attack) ICD Code: G45.9 Status: Acute (2) Hyponatremia ICD Code: E87.1 Status: Acute (3) Thrombocytopenia ICD Code: D69.6 Status: Chronic Assessment and Plan 86-year-old male with a past medical history of atrial fibrillation on Coumadin (INR 1.4 in ER), left carotid artery stenosis, hypothyroidism, orthostatic hypotension, prostate cancer, and CAD was brought to the ED for symptoms of right weakness on 08/27/2016. Recently seen as a stroke alert on 08/24/16, discharged 08/26/2016, workup negative except carotid U/S on 08/25/2016 showed elevated velocity/ratio and left carotid system suggesting a 50-69% stenosis with no significant stenosis noted in the right carotid artery. TIA - PT, OT, ST consults, recommends rehab vs [facility] PT - Monitor on telemetry, Neurochecks, NIHSS - Head CT and brain MRI with chronic changes, no acute findings - Neurology consulted; appreciate Dr. Almeida assistance - Portable EEG results pending - Continue heparin drip and bridge until Coumadin therapeutic (INR 1.4 on admit ) - resume home coumadin; monitor for therapeutic dose/therapeutic INR - STROKE ALERT today 08/29 - neuro consulted, repeat head CT unremarkable, likely related to hypotensive event Orthostatic Hypotension: likely contributing to symptoms as above - sanya hose - continue fludrocortisone - consult patient's director of engineering Dr. Siddiqui, appreciate recommendations Atrial Fibrillation on Coumadin, rate controlled - not on any rate controlling medications however HR mostly in 70s - continue anticoagulation with Coumadin, and Heparin drip until INR therapeutic , currently 1.1 Mild hyponatremia - replace with NS IVF at 70 cc/hr - repeat BMP improved with Na 137 Chronic Thrombocytopenia (of undetermined origin refused marrow studies) - seen by Dr. Ding for monitoring in the past reconsult if needed - platelet count 88,000 on admission - follow trends in platelet counts All other medical conditions stable, continue home medications as appropriate. DVT prophylaxis - Heparin gtt/Coumadin Written by Sari Leahy, acting as scribe for Dr. Ryder on 08/29/16 at 09:50. The documentation accurately reflects the work performed [id number] by me Dr. Ryder on 08/29/16 at 09:50. Problem Qualifiers (1) TIA (transient ischemic attack): Qualified Code: G45.9 - Transient cerebral ischemia, unspecified type Sari Leahy PA-C Aug 29, 2016 09:50 Nichole Ryder MD Aug 29, 2016 16:43
[2016-08-29 11:53] LABS: AUTOMATED NEUTROPHIL # 10.1 TH/MM3 (1.8-7.7); BASOPHIL # 0.1 TH/MM3 (0-0.2); BASOPHIL % 0.6 % (0.0-2.0); EOSINOPHIL # 0.1 TH/MM3 (0-0.4); EOSINOPHIL % 0.8 % (0.0-4.0); HEMATOCRIT 39.8 % (39.0-51.0); LYMPH % 5.7 % (9.0-44.0); LYMPHOCYTE # 0.7 TH/MM3 (1.0-4.8); MEAN CELL VOLUME 88.1 FL (80.0-100.0); MEAN CORPUSCULAR HEMOGLOBIN 30.3 PG (27.0-34.0); MEAN CORPUSCULAR HGB CONC 34.4 % (32.0-36.0); MONO % 7.2 % (0.0-8.0); NEUT % 85.7 % (16.0-70.0); PLATELET COUNT 79 TH/MM3 (150-450); RED BLOOD COUNT 4.52 MIL/MM3 (4.50-5.90); RED CELL DISTRIBUTION WIDTH 14.1 % (11.6-17.2); WHITE BLOOD COUNT 11.8 TH/MM3 (4.0-11.0)
[2016-08-29 11:55] LABS: HEMO FLAGS AUTO DIFF
--- NOTE | 2016-08-29 11:59 | RADRPT ---
EXAM DATE/TIME: 08/29/2016 11:37 CORRECTION Corrected on: August 30, 2016; added missing examform information INDICATIONS : Stroke alert. Trouble with speech. RADIATION DOSE: 56.35 CTDIvol (mGy) MEDICAL HISTORY : Cerebrovascular disease. Cardiovascular disease. Hypertension. SURGICAL HISTORY : Appendectomy. Cholecystectomy. Shoulder lesion. ENCOUNTER: Initial. ACUITY: 1 day. PAIN SCALE: 0/10 LOCATION: Cranial FINDINGS: There is marked central and cortical atrophy with dilatation of ventricular and sulcal spaces. There is no parenchymal hemorrhage, acute infarction or mass lesion identified. There are no extra-axial fluid collections appreciated. The posterior fossa is unremarkable with midline fourth ventricle. T he portion of the orbits and paranasal sinuses visualized are unremarkable. CONCLUSION: Atrophy otherwise negative. Findings were called to Dr. Ryder at 1159. Earl Gonzales MD FACR on August 29, 2016 at 11:54 Board Certified Radiologist. This report was verified electronically. DR Redmond on August 30, 2016 at 11:05 Board Certified Radiologist. This report was verified electronically.
[2016-08-29 12:00] LABS: APTT (PATIENT) 40.6 SEC (24.3-30.1); INTERNATIONAL NORMALIZED RATIO 1.1 RATIO; PROTHROMBIN TIME - PATIENT 12.4 SEC (9.8-11.6)
[2016-08-29 12:21] LABS: CREATINE KINASE 104 U/L (39-308); I-STAT POTASSIUM 3.7 MMOL/L (3.5-4.9); I-STAT SODIUM 136 MMOL/L (138-146)
--- NOTE | 2016-08-29 12:22 | HHI.PR ---
Review/Management Daily Summary seen in [id number] shortly after stroke alert called improved unresponsiveness, was alert and oriented , moving limbs well and verbal resolved neuro deficits probably from hypotensive event, on heparin not a tpa candidate dr Luna to follow Subjective Subjective Comments stroke alert Active Medications Current Medications Medications (Trade) Dose Ordered Sig/Vj Route Start Time Stop Time Status Last Admin (Heparin-D5W Inj) 250 ml @ 0 mls/hr TITRATE IV 08/27/16 17:15 08/27/16 18:17 (NS Flush) 2 ml UNSCH PRN FLUSH 08/27/16 17:30 (NS Flush) 2 ml BID FLUSH 08/27/16 21:00 08/29/16 08:58 (Tylenol) 650 mg Q4H PRN PO 08/27/16 17:30 (Zofran Inj) 4 mg Q6H PRN IVP 08/27/16 17:30 (Dulcolax Supp) 10 mg DAILY PRN NV 08/27/16 17:30 (Milk Of Magnesia Liq) 30 ml Q12H PRN PO 08/27/16 17:30 (Narcan Inj) 0.4 mg UNSCH PRN IV 08/27/16 17:30 (Lipitor) 20 mg HS PO 08/28/16 21:00 08/28/16 21:00 (Florinef) 0.1 mg DAILY PO 08/28/16 09:00 08/29/16 08:58 (Synthroid) 75 mcg DAILY@06 PO 08/28/16 06:00 08/29/16 05:44 (Coumadin) 1 mg MoWeFr@16 PO 08/29/16 02:00 08/29/16 02:10 (Coumadin) 7.5 mg DAILY@16 PO 08/28/16 16:00 08/28/16 16:00 Patient Own Medication PT OWN MED: APRISO (MESALAMI... DAILY PO 08/28/16 14:00 08/29/16 08:58 (Coumadin Consult Pharmacy) 0 ml @ 0 mls/hr UNSCH OTHER 08/29/16 10:00 Allergies Allergies Coded Allergies No Known Allergies (Unverified08/27/16) Exam I&O / VS Vital Signs Date Time Temp Pulse Resp B/P Pulse Ox O2 Delivery O2 Flow Rate FiO2 08/29/16 11:31 81 150/70 93 08/29/16 11:25 187/88 93 08/29/16 09:34 90 102/54 08/29/16 09:31 88 120/91 08/29/16 08:33 96.4 80 17 159/73 92 08/29/16 08:00 84 08/29/16 07:51 92 21 08/29/16 06:14 97.4 74 18 156/74 93 143/77 121/69 08/29/16 03:18 81 08/29/16 01:35 97.1 73 18 156/65 93 08/28/16 21:24 97.1 81 18 113/59 93 08/28/16 15:11 79 20 157/74 93 General: Alert and Oriented, No acute distress Eye: PERRL, EOMI, Normal conjuctiva, Vision unchanged Respiratory: Lungs CTA Cardiology: Normal rate, No murmur Neurologic: Alert, Oriented, Normal sensory, Normal motor, No focal defects, CN II-XII intact, Normal DTR's Objective Radiology Results ct brain negative acute Micro and Labs Laboratory Tests Test 08/28/16 08/29/16 08/29/16 13:10 05:42 11:30 Activated Partial 49.0 40.6 Thromboplast Time Prothrombin Time 12.7 12.4 Prothromb Time International 1.1 1.1 Ratio White Blood Count 11.8 Red Blood Count 4.52 Hemoglobin 13.7 Hematocrit 39.8 Mean Corpuscular Volume 88.1 Mean Corpuscular Hemoglobin 30.3 Mean Corpuscular Hemoglobin 34.4 Concent Red Cell Distribution Width 14.1 Platelet Count 79 Mean Platelet Volume 10.6 Neutrophils (%) (Auto) 85.7 Lymphocytes (%) (Auto) 5.7 Monocytes (%) (Auto) 7.2 Eosinophils (%) (Auto) 0.8 Basophils (%) (Auto) 0.6 Neutrophils # (Auto) 10.1 Lymphocytes # (Auto) 0.7 Monocytes # (Auto) 0.9 Eosinophils # (Auto) 0.1 Basophils # (Auto) 0.1 CBC Comment AUTO DIFF Fibrinogen 332 Elo Santos MD Aug 29, 2016 12:22
[2016-08-29 12:30] LABS: PLATELET ESTIMATE SMEAR LOW (NORMAL); PLATELET MORPHOLOGY NORMAL (NORMAL)
[2016-08-29 12:31] LABS: SCAN/DIFF AUTO DIFF CONFIRMED
[2016-08-29] MEDS: WARFARIN SOD 7.5 MG TAB PO SCH (16:21)
[2016-08-29] MEDS: HEPARIN-D5W INJ 250 ML IV SCH (16:23)
--- NOTE | 2016-08-29 16:55 | EKG ---
Date Performed: 08/29/2016 Time Performed: 11:26:14 PTAGE: 86 years EKG: BASELINE ARTIFACT PRESENT. Sinus rhythm NORMAL ECG NO SIGNIFICANT CHANGE FROM PRIOR ELECTROCARDIOGRAM. PREVIOUS TRACING : 08/27/2016 16.43 DOCTOR: Chay Mccallum Interpretating Date/Time 08/29/2016 16:54:13
[2016-08-29] MEDS: ATORVASTATIN 20 MG TAB PO SCH (22:06)
[2016-08-30] VITALS (11 sets, daily range): BP systolic 127–168; BP diastolic 63–76; PULSE 83–110; RESP 16–22; TEMP 97.4–100.6; O2SAT 91–96
[2016-08-30] MEDS: LEVOTHYROXINE SODIUM 75 MCG TAB PO SCH (05:29)
[2016-08-30 07:30] LABS: INTERNATIONAL NORMALIZED RATIO 1.2 RATIO; PROTHROMBIN TIME - PATIENT 13.2 SEC (9.8-11.6)
[2016-08-30 07:31] LABS: AUTOMATED NEUTROPHIL # 11.2 TH/MM3 (1.8-7.7); EOSINOPHIL % 0.1 % (0.0-4.0); HEMATOCRIT 37.5 % (39.0-51.0); LYMPH % 2.6 % (9.0-44.0); LYMPHOCYTE # 0.3 TH/MM3 (1.0-4.8); MEAN CELL VOLUME 87.7 FL (80.0-100.0); MEAN CORPUSCULAR HEMOGLOBIN 30.1 PG (27.0-34.0); MEAN CORPUSCULAR HGB CONC 34.3 % (32.0-36.0); MONO % 8.2 % (0.0-8.0); NEUT % 89.1 % (16.0-70.0); PLATELET COUNT 55 TH/MM3 (150-450); RED BLOOD COUNT 4.28 MIL/MM3 (4.50-5.90); RED CELL DISTRIBUTION WIDTH 14.2 % (11.6-17.2); WHITE BLOOD COUNT 12.5 TH/MM3 (4.0-11.0)
[2016-08-30 07:32] LABS: HEMO FLAGS AUTO DIFF
[2016-08-30 07:46] LABS: ALT (GPT) 30 U/L (12-78); ANION GAP 10 MEQ/L (5-15); AST (GOT) 26 U/L (15-37); BICARBONATE 25.3 MEQ/L (21.0-32.0); BLOOD UREA NITROGEN 21 MG/DL (7-18); CHLORIDE 101 MEQ/L (98-107); GLOMERULAR FILTRATION RATE 74 ML/MIN (>89); POTASSIUM 3.3 MEQ/L (3.5-5.1); SODIUM (NA) 136 MEQ/L (136-145)
[2016-08-30 08:00] LABS: ALKALINE PHOSPHATASE 58 U/L (45-117); TOTAL BILIRUBIN ADULT 1.6 MG/DL (0.2-1.0)
[2016-08-30 08:18] LABS: PLATELET ESTIMATE SMEAR LOW (NORMAL); PLATELET MORPHOLOGY NORMAL (NORMAL); SCAN/DIFF AUTO DIFF CONFIRMED
[2016-08-30] MEDS: APRISO 0.375 GM PO SCH (08:55)
[2016-08-30] MEDS: SODIUM CHLORIDE 0.9% FLUSH 5 ML FLUSH FLUSH SCH ×2 (08:56→21:15)
[2016-08-30] MEDS: FLUDROCORTISONE ACETATE 0.1 MG TAB PO SCH (08:56)
--- NOTE | 2016-08-30 10:07 | HHI.PR ---
Subjective Remarks Follow-up for episodes of near syncope/AMS. The patient is seen with his son and at bedside. He states that he slept well last night he has no acute complaints at this time. No further events overnight since episode occurred yesterday morning. Family would prefer the patient go to rehabilitation. Objective Vitals Vital Signs Date Time Temp Pulse Resp B/P Pulse Ox O2 Delivery O2 Flow Rate FiO2 08/30/16 07:23 99.0 92 16 141/65 91 08/30/16 04:53 98.3 96 20 168/71 95 08/30/16 01:21 89 08/30/16 00:57 97.4 92 20 165/70 95 08/29/16 19:52 98.3 93 20 163/75 95 08/29/16 18:30 97.3 97 17 155/70 08/29/16 15:24 97.1 107 18 170/79 91 08/29/16 11:31 81 150/70 93 08/29/16 11:25 187/88 93 I/O 08/29/16 08/29/16 08/29/16 08/30/16 08/30/16 08/30/16 07:00 15:00 23:00 07:00 15:00 23:00 Intake Total 110 ml Output Total 250 ml 200 ml Balance 110 ml -250 ml -200 ml Intake IV Total 110 ml Output Urine Total 250 ml 200 ml # Voids 1 7 Result Diagram: 08/30/16 0601 08/30/16 0600 Imaging Last Impressions Head CT 08/29/16 0000 Signed Impressions: Service Date/Time: Monday, August 29, 2016 11:37 - CONCLUSION: Atrophy otherwise negative.. Findings were called to Dr. Ryder at 1159. Earl Gonzales MD FACR Brain MRI 08/27/16 0000 Signed Impressions: Service Date/Time: Saturday, August 27, 2016 20:20 - CONCLUSION: 1. Moderate chronic ischemic changes in the white matter. No recent infarct. No mass, hemorrhage or shift. No significant change from August 25. Dany Park MD Objective Remarks GENERAL: Well-developed well-nourished. In no acute distress. Hard of hearing. SKIN: Warm and dry. No lesions noted. HEENT: Normocephalic. Pupils equal and round. Mucous membranes pink and moist. CARDIOVASCULAR: Regular rate and rhythm. No murmur appreciated. RESPIRATORY: No accessory muscle use. Clear to auscultation. Breath sounds equal bilaterally. GASTROINTESTINAL: Abdomen soft, non-tender, nondistended. Bowel sounds x4. MUSCULOSKELETAL: No obvious deformities. No clubbing or cyanosis. No edema. NEUROLOGICAL: Awake and alert. No focal neurological deficits. Moves upper and lower extremities spontaneously. Normal speech. PSYCHIATRIC: Appropriate mood and affect; insight and judgment normal. A/P Problem List: (1) TIA (transient ischemic attack) ICD Code: G45.9 Status: Acute (2) Hyponatremia ICD Code: E87.1 Status: Resolved (3) Thrombocytopenia ICD Code: D69.6 Status: Chronic Assessment and Plan 86-year-old male with a past medical history of atrial fibrillation on Coumadin (INR 1.4 in ER), left carotid artery stenosis, hypothyroidism, orthostatic hypotension, prostate cancer, and CAD was brought to the ED for symptoms of right weakness on 08/27/2016. Recently seen as a stroke alert on 08/24/16, discharged 08/26/2016, workup negative except carotid U/S on 08/25/2016 showed elevated velocity/ratio and left carotid system suggesting a 50-69% stenosis with no significant stenosis noted in the right carotid artery. TIA Labs/imaging reviewed: EEG consistent with mild diffuse encephalopathy, but no focal abnormalities noted. Head CT and brain MRI with chronic changes, no acute findings. - PT, OT, ST consults, recommends rehab vs [facility] PT - Monitor on telemetry, Neurochecks, NIHSS - Neurology consulted; appreciate Dr. Almeida assistance - Continue heparin drip and bridge until Coumadin therapeutic (INR 1.4 on admit ) - Continue home coumadin; monitor for therapeutic dose/therapeutic INR - STROKE ALERT 08/29 - neuro consulted, repeat head CT unremarkable, suspect related to hypotensive event Orthostatic Hypotension: likely contributing to symptoms as above - sanya hose - continue fludrocortisone - consulted patient's hydrotechnical specialist Dr. Siddiqui, appreciate recommendations - Patient and family educated on slow transitions and position changes to avoid symptoms Atrial Fibrillation on Coumadin, rate controlled - not on any rate controlling medications however HR mostly in 70s - continue anticoagulation with Coumadin, and Heparin drip until INR therapeutic , currently subtherapeutic Mild hyponatremia - replaced with NS IVF at 70 cc/hr - repeat BMP improved with Na within normal Chronic Thrombocytopenia (of undetermined origin refused marrow studies) - seen by Dr. Ding for monitoring in the past reconsult if needed - platelet count 88,000 on admission - follow trends in platelet counts Hypokalemia: Mild. Potassium 3.3. Replace orally. Magnesium within normal limits. Follow-up BMP. All other medical conditions stable, continue home medications as appropriate. DVT prophylaxis - Heparin gtt/Coumadin Written by Edmund Pettit, acting as scribe for Dr. Ryder on 08/30/16 at 10:06. The documentation accurately reflects the work performed [id number] by me Dr. Ryder on 08/30/16 at 10:06. Discharge Planning INR subtherapeutic, high risk for neurologic event, discharge planning to SNF when INR therapeutic. Problem Qualifiers (1) TIA (transient ischemic attack): Qualified Code: G45.9 - Transient cerebral ischemia, unspecified type Edmund Pettit Aug 30, 2016 10:07 Nichole Ryder MD Aug 30, 2016 11:25
[2016-08-30] MEDS ORDERED: POTASSIUM CHLORIDE 20 MEQ CONTROLLED RELEASE TAB PO ONE (10:15)
[2016-08-30 14:04] LABS: APTT (PATIENT) 44.4 SEC (24.3-30.1)
[2016-08-30] MEDS ORDERED: SODIUM CHLORID 0.9% 500 ML INJ 500 ML IV ONE (15:45)
[2016-08-30] MEDS: WARFARIN SOD 7.5 MG TAB PO SCH (16:00)
--- NOTE | 2016-08-30 16:18 | RADRPT ---
EXAM DATE/TIME: 08/30/2016 13:58 [facility] COMPARISON: CHEST SINGLE AP, March 13, 2016, 9:08. INDICATIONS : Patient passed out last . MEDICAL HISTORY : Carcinoma, prostate. Hypertension. SURGICAL HISTORY : Appendectomy. Cholecystectomy. ENCOUNTER: Subsequent ACUITY: 4 - 6 days PAIN SCORE: 0/10 LOCATION: Bilateral chest FINDINGS: The heart is stable. The pulmonary vascular pattern is normal. The lungs are clear. Wire fixation i s noted within the left mid clavicle. A loop recorder is noted within the left chest wall. CONCLUSION: No acute cardiopulmonary disease. Ryan Nuno MD on August 30, 2016 at 16:12 Board Certified Radiologist. This report was verified electronically.
--- NOTE | 2016-08-30 16:23 | MG ---
cc: FISH MUNOZ Lab No: [id number] Date: 08/30/16 Age: Sex: M Race: HISTORY Abrupt onset of right-sided weakness, slumped over, right aphasic. Coumadin, Florinef, a-fib, Heparin. DESCRIPTION An 8 Hz, 60 microvolt rhythm is noted. Some mild diffuse theta slowing is seen. I do not see any left hemisphere epileptiform or focal abnormalities. Hyperventilation was not performed. Photic stimulation was performed without significant posterior driving. IMPRESSION Essentially unremarkable EEG. No left hemisphere abnormalities were noted. No seizure activity was seen. MD VALERIE Francis/BJF /2:55 PM /4:10 PM
[2016-08-30] MEDS: WARFARIN SOD 1 MG TAB PO SCH (16:58)
[2016-08-30] MEDS: ATORVASTATIN 20 MG TAB PO SCH (21:15)
[2016-08-31] VITALS (8 sets, daily range): BP systolic 125–149; BP diastolic 60–77; PULSE 86–103; RESP 16–19; TEMP 97.3–99.1; O2SAT 96–97
[2016-08-31] MEDS: LEVOTHYROXINE SODIUM 75 MCG TAB PO SCH (05:04)
[2016-08-31 08:21] LABS: AUTOMATED NEUTROPHIL # 11.5 TH/MM3 (1.8-7.7); BASOPHIL % 0.1 % (0.0-2.0); HEMATOCRIT 39.4 % (39.0-51.0); LYMPH % 1.9 % (9.0-44.0); LYMPHOCYTE # 0.2 TH/MM3 (1.0-4.8); MEAN CELL VOLUME 87.9 FL (80.0-100.0); MEAN CORPUSCULAR HEMOGLOBIN 29.8 PG (27.0-34.0); MEAN CORPUSCULAR HGB CONC 33.9 % (32.0-36.0); MONO % 7.3 % (0.0-8.0); NEUT % 90.7 % (16.0-70.0); PLATELET COUNT 54 TH/MM3 (150-450); RED BLOOD COUNT 4.49 MIL/MM3 (4.50-5.90); WHITE BLOOD COUNT 12.7 TH/MM3 (4.0-11.0)
[2016-08-31 08:27] LABS: HEMO FLAGS AUTO DIFF
[2016-08-31 08:30] LABS: APTT (PATIENT) 36.1 SEC (24.3-30.1); INTERNATIONAL NORMALIZED RATIO 1.1 RATIO; PROTHROMBIN TIME - PATIENT 12.7 SEC (9.8-11.6)
[2016-08-31 08:41] LABS: BICARBONATE 24.8 MEQ/L (21.0-32.0); POTASSIUM 3.5 MEQ/L (3.5-5.1)
[2016-08-31] MEDS: APRISO 0.375 GM PO SCH (09:00)
[2016-08-31] MEDS: SODIUM CHLORIDE 0.9% FLUSH 5 ML FLUSH FLUSH SCH ×3 (09:00→21:35)
[2016-08-31] MEDS: FLUDROCORTISONE ACETATE 0.1 MG TAB PO SCH (09:11)
[2016-08-31 09:24] LABS: PLATELET ESTIMATE SMEAR LOW (NORMAL); PLATELET MORPHOLOGY NORMAL (NORMAL); SCAN/DIFF AUTO DIFF CONFIRMED
--- NOTE | 2016-08-31 10:56 | HHI.PR ---
Subjective Remarks With hiccups in the morning. Says he feels better otherwise and no new syncopal episodes. No n/v/d/c. No change in vision or new deficit. Objective Vitals Vital Signs Date Time Temp Pulse Resp B/P Pulse Ox O2 Delivery O2 Flow Rate FiO2 08/31/16 08:00 97.8 95 19 138/69 96 08/31/16 01:30 92 08/30/16 23:50 99.9 104 22 155/74 94 08/30/16 20:40 90 08/30/16 20:35 98.4 83 18 132/76 96 08/30/16 19:31 21 08/30/16 16:00 132/72 08/30/16 14:39 100.6 110 18 163/71 96 08/30/16 11:27 98.7 89 18 127/63 95 I/O 08/30/16 08/30/16 08/30/16 08/31/16 08/31/16 08/31/16 06:59 14:59 22:59 06:59 14:59 22:59 Intake Total 880 ml Output Total 200 ml Balance -200 ml 880 ml Intake Oral 880 ml Output Urine Total 200 ml # Voids 1 Result Diagram: 08/31/1615 08/31/16 0718 Imaging Last Impressions Chest X-Ray 08/30/16 0000 Signed Impressions: Service Date/Time: August 13:58 - CONCLUSION: No acute cardiopulmonary disease. Ryan Nuno MD Head CT 08/29/16 0000 Signed Impressions: Service Date/Time: Monday, August 29, 2016 11:37 - CONCLUSION: Atrophy otherwise negative. Findings were called to Dr. Ryder at 1159. Earl Gonzales MD FACR Brain MRI 08/27/16 0000 Signed Impressions: Service Date/Time: Saturday, August 27, 2016 20:20 - CONCLUSION: 1. Moderate chronic ischemic changes in the white matter. No recent infarct. No mass, hemorrhage or shift. No significant change from August 25. Dany Park MD Objective Remarks GENERAL: Well-developed well-nourished. In no acute distress. Hard of hearing. SKIN: Warm and dry. No lesions noted. HEENT: Normocephalic. Pupils equal and round. Mucous membranes pink and moist. CARDIOVASCULAR: Regular rate and rhythm. No murmur appreciated. RESPIRATORY: No accessory muscle use. Clear to auscultation. Breath sounds equal bilaterally. GASTROINTESTINAL: Abdomen soft, non-tender, nondistended. Bowel sounds x4. MUSCULOSKELETAL: No obvious deformities. No clubbing or cyanosis. No edema. NEUROLOGICAL: Awake and alert. No focal neurological deficits. Moves upper and lower extremities spontaneously. Normal speech. PSYCHIATRIC: Appropriate mood and affect; insight and judgment normal. A/P Problem List: (1) TIA (transient ischemic attack) ICD Code: G45.9 Status: Acute (2) Hyponatremia ICD Code: E87.1 Status: Resolved (3) Thrombocytopenia ICD Code: D69.6 Status: Chronic Assessment and Plan 86-year-old male with a past medical history of atrial fibrillation on Coumadin (INR 1.4 in ER), left carotid artery stenosis, hypothyroidism, orthostatic hypotension, prostate cancer, and CAD was brought to the ED for symptoms of right weakness on 08/27/2016. Recently seen as a stroke alert on 08/24/16, discharged 08/26/2016, workup negative except carotid U/S on 08/25/2016 showed elevated velocity/ratio and left carotid system suggesting a 50-69% stenosis with no significant stenosis noted in the right carotid artery. TIA Subtherapeutic INR, per cardiology patient to leave the hospital when INR is therapeutic. Continue heparin until INR therapeutic, continue coumadin , pharm follwing Labs/imaging reviewed: EEG consistent with mild diffuse encephalopathy, but no focal abnormalities noted. Head CT and brain MRI with chronic changes, no acute findings. - PT, OT, ST consults, recommends rehab vs [facility] PT - Monitor on telemetry, Neurochecks, NIHSS - Neurology consulted; appreciate Dr. Almieda assistance - Continue heparin drip and bridge until Coumadin therapeutic (INR 1.4 on admit ) - Continue home coumadin; monitor for therapeutic dose/therapeutic INR - STROKE ALERT 08/29 - neuro consulted, repeat head CT unremarkable, suspect related to hypotensive event Orthostatic Hypotension: likely contributing to symptoms as above - sanya hose - continue fludrocortisone - consulted patient's manager trade Dr. Siddiqui, appreciate recommendations - Patient and family educated on slow transitions and position changes to avoid symptoms Atrial Fibrillation on Coumadin, rate controlled - not on any rate controlling medications however HR mostly in 70s - continue anticoagulation with Coumadin, and Heparin drip until INR therapeutic , currently subtherapeutic Mild hyponatremia - replaced with NS IVF at 70 cc/hr - repeat BMP improved with Na within normal Hiccups: Reglan as need. Chronic Thrombocytopenia (of undetermined origin refused marrow studies) - seen by Dr. Ding for monitoring in the past reconsult if needed - platelet count 88,000 on admission - follow trends in platelet counts Hypokalemia: Mild. Replace orally. Magnesium within normal limits. Monitor and replace as need. All other medical conditions stable, continue home medications as appropriate. DVT prophylaxis - Heparin gtt/Coumadin Discharge Planning INR subtherapeutic, high risk for neurologic event, discharge planning to SNF when INR therapeutic. Problem Qualifiers (1) TIA (transient ischemic attack): Qualified Code: G45.9 - Transient cerebral ischemia, unspecified type Nichole Ryder MD Aug 31, 2016 10:56
[2016-08-31 11:25] LABS: BACTERIA, URINE MANY /hpf; BLOOD, URINE MOD (NEG); COMMENT (UR) CULTURE INDICATED; CULTURE IF INDICATED CULTURE INDICATED; GLUCOSE,URINE NEG (NEG); KETONE, URINE NEG (NEG); MUCUS URINE FEW /lpf (OCC); PH, URINE 5.5 (5.0-8.5); SQUAMOUS EPITHELIAL CELL URINE 1 /hpf (0-5); URINE COLOR YELLOW (YELLW/STRAW)
[2016-08-31 11:27] LABS: NITRITE,URINE POS (NEG)
[2016-08-31 15:11] LABS: APTT (PATIENT) 46.7 SEC (24.3-30.1)
[2016-08-31] MEDS: METOCLOPRAMIDE HCL 10 MG/2 ML VIAL IV PUSH PRN (15:42)
[2016-08-31] MEDS: WARFARIN SOD 7.5 MG TAB PO SCH (15:43)
[2016-08-31] MEDS ORDERED: WARFARIN SOD 1 MG TAB PO SCH (16:00)
[2016-08-31] MEDS: ATORVASTATIN 20 MG TAB PO SCH (21:29)
[2016-08-31] MEDS: WARFARIN SOD 1 MG TAB PO SCH (21:29)
[2016-08-31] MEDS: HEPARIN-D5W INJ 250 ML IV SCH (23:23)
[2016-09-01] VITALS (8 sets, daily range): BP systolic 124–168; BP diastolic 65–83; PULSE 74–91; RESP 18–20; TEMP 96.2–99; O2SAT 95–97
[2016-09-01] MEDS: LEVOTHYROXINE SODIUM 75 MCG TAB PO SCH (07:05)
[2016-09-01] MEDS: METOCLOPRAMIDE HCL 10 MG/2 ML VIAL IV PUSH PRN ×2 (07:06→16:29)
[2016-09-01 08:36] LABS: AUTOMATED NEUTROPHIL # 10.6 TH/MM3 (1.8-7.7); BASOPHIL % 0.2 % (0.0-2.0); EOSINOPHIL % 0.2 % (0.0-4.0); HEMATOCRIT 39.4 % (39.0-51.0); LYMPH % 3.9 % (9.0-44.0); LYMPHOCYTE # 0.5 TH/MM3 (1.0-4.8); MEAN CELL VOLUME 87.5 FL (80.0-100.0); MEAN CORPUSCULAR HGB CONC 34.3 % (32.0-36.0); NEUT % 86.7 % (16.0-70.0); PLATELET COUNT 53 TH/MM3 (150-450); WHITE BLOOD COUNT 12.2 TH/MM3 (4.0-11.0)
[2016-09-01 08:40] LABS: APTT (PATIENT) 53.4 SEC (24.3-30.1)
[2016-09-01 08:44] LABS: HEMO FLAGS DIFF FINAL
[2016-09-01 08:58] LABS: BICARBONATE 26.6 MEQ/L (21.0-32.0); MAGNESIUM 2.1 MG/DL (1.5-2.5); POTASSIUM 3.7 MEQ/L (3.5-5.1)
[2016-09-01] MEDS: FLUDROCORTISONE ACETATE 0.1 MG TAB PO SCH (09:19)
[2016-09-01] MEDS: APRISO 0.375 GM PO SCH (09:22)
[2016-09-01 11:25] LABS: INTERNATIONAL NORMALIZED RATIO 1.3 RATIO; PROTHROMBIN TIME - PATIENT 14.1 SEC (9.8-11.6)
--- NOTE | 2016-09-01 13:59 | HHI.PR ---
Subjective Remarks Patient is in the chair. His BP dropped to SBP 70s when he was switched to the chair and he felt dizzy at that time. Feels much better now. Doesn't have any chest pain or lightheadedness. No palpitations. Less hiccups. Family at bedside. Objective Vitals Vital Signs Date Time Temp Pulse Resp B/P Pulse Ox O2 Delivery O2 Flow Rate FiO2 09/01/16 12:05 97.1 84 20 124/69 97 09/01/16 11:10 74 09/01/16 08:05 98.5 86 20 150/78 96 09/01/16 04:00 97.1 81 20 137/78 97 09/01/16 00:27 96.2 91 18 168/83 96 08/31/16 21:04 98.5 86 16 149/71 97 08/31/16 20:54 92 08/31/16 18:29 96 21 08/31/16 14:00 99.1 103 18 140/77 96 08/31/16 13:57 96 21 I/O 08/31/16 08/31/16 08/31/16 09/01/16 09/01/16 09/01/16 07:00 15:00 23:00 07:00 15:00 23:00 Intake Total 880 ml 360 ml 1098 ml Output Total 300 ml 400 ml Balance 880 ml 360 ml 798 ml -400 ml Intake Oral 880 ml 360 ml 240 ml IV Total 858 ml Output Urine Total 300 ml 400 ml # Voids 1 2 # Bowel Movements 1 0 1 Result Diagram: 09/01/16 0748 09/01/16 0748 Imaging Last Impressions Chest X-Ray 08/30/16 0000 Signed Impressions: Service Date/Time: August 13:58 - CONCLUSION: No acute cardiopulmonary disease. Ryan Nuno MD Head CT 08/29/16 0000 Signed Impressions: Service Date/Time: Monday, August 29, 2016 11:37 - CONCLUSION: Atrophy otherwise negative. Findings were called to Dr. Ryder at 1159. Earl Gonzales MD FACR Brain MRI 08/27/16 0000 Signed Impressions: Service Date/Time: Saturday, August 27, 2016 20:20 - CONCLUSION: 1. Moderate chronic ischemic changes in the white matter. No recent infarct. No mass, hemorrhage or shift. No significant change from August 25. Dany Park MD Objective Remarks GENERAL: Well-developed well-nourished. In no acute distress. Hard of hearing. SKIN: Warm and dry. No lesions noted. HEENT: Normocephalic. Pupils equal and round. Mucous membranes pink and moist. CARDIOVASCULAR: Regular rate and rhythm. No murmur appreciated. RESPIRATORY: No accessory muscle use. Clear to auscultation. Breath sounds equal bilaterally. GASTROINTESTINAL: Abdomen soft, non-tender, nondistended. Bowel sounds x4. MUSCULOSKELETAL: No obvious deformities. No clubbing or cyanosis. No edema. NEUROLOGICAL: Awake and alert. No focal neurological deficits. Moves upper and lower extremities spontaneously. Normal speech. PSYCHIATRIC: Appropriate mood and affect; insight and judgment normal. A/P Problem List: (1) TIA (transient ischemic attack) ICD Code: G45.9 Status: Acute (2) Hyponatremia ICD Code: E87.1 Status: Resolved (3) Thrombocytopenia ICD Code: D69.6 Status: Chronic Assessment and Plan 86-year-old male with a past medical history of atrial fibrillation on Coumadin (INR 1.4 in ER), left carotid artery stenosis, hypothyroidism, orthostatic hypotension, prostate cancer, and CAD was brought to the ED for symptoms of right weakness on 08/27/2016. Recently seen as a stroke alert on 08/24/16, discharged 08/26/2016, workup negative except carotid U/S on 08/25/2016 showed elevated velocity/ratio and left carotid system suggesting a 50-69% stenosis with no significant stenosis noted in the right carotid artery. TIA Subtherapeutic INR, per cardiology patient to leave the hospital when INR is therapeutic. Continue heparin until INR therapeutic, continue coumadin , pharm follwing Labs/imaging reviewed: EEG consistent with mild diffuse encephalopathy, but no focal abnormalities noted. Head CT and brain MRI with chronic changes, no acute findings. - PT, OT, ST consults, recommends rehab vs [facility] PT - Monitor on telemetry, Neurochecks, NIHSS - Neurology consulted; appreciate Dr. Almeida assistance - Continue heparin drip and bridge until Coumadin therapeutic (INR 1.4 on admit ) - Continue home coumadin; monitor for therapeutic dose/therapeutic INR - STROKE ALERT 08/29 - neuro consulted, repeat head CT unremarkable, suspect related to hypotensive event Hyponatremia Na 127 today. Will give NaCl tablet. Monitor Na closely Q6 hrs for fast correction. Orthostatic Hypotension: likely contributing to symptoms as above - sanya hose - continue fludrocortisone - consulted patient's revenue audit clerk Dr. Siddiqui, appreciate recommendations - Patient and family educated on slow transitions and position changes to avoid symptoms Atrial Fibrillation on Coumadin, rate controlled - not on any rate controlling medications however HR mostly in 70s - continue anticoagulation with Coumadin, and Heparin drip until INR therapeutic , currently subtherapeutic Mild hyponatremia - replaced with NS IVF at 70 cc/hr - repeat BMP improved with Na within normal Hiccups: Reglan as need. Chronic Thrombocytopenia (of undetermined origin refused marrow studies) - seen by Dr. Ding for monitoring in the past reconsult if needed - platelet count 88,000 on admission - follow trends in platelet counts Hypokalemia: Mild. Replace orally. Magnesium within normal limits. Monitor and replace as need. All other medical conditions stable, continue home medications as appropriate. DVT prophylaxis - Heparin gtt/Coumadin Discharge Planning INR subtherapeutic, high risk for neurologic event, discharge planning to SNF when INR therapeutic. Problem Qualifiers (1) TIA (transient ischemic attack): Qualified Code: G45.9 - Transient cerebral ischemia, unspecified type Nichole Ryder MD Sep 01, 2016 13:59
[2016-09-01] MEDS ORDERED: SODIUM CHLORIDE 1 GRAM TAB PO ONE (14:15)
[2016-09-01] MEDS: WARFARIN SOD 7.5 MG TAB PO SCH (15:47)
[2016-09-01] MEDS: cefTRIAXone INJ 1,000 MG in SODIUM CHLORIDE 0.9% INJ 100 ML IV SCH (15:48)
[2016-09-01] MEDS: SODIUM CHLORIDE 0.9% FLUSH 5 ML FLUSH FLUSH SCH (21:00)
[2016-09-01] MEDS: ATORVASTATIN 20 MG TAB PO SCH (21:29)
[2016-09-02] VITALS (8 sets, daily range): BP systolic 138–178; BP diastolic 69–81; PULSE 77–85; RESP 19–20; TEMP 95.5–98.7; O2SAT 94–96
[2016-09-02] MEDS: METOCLOPRAMIDE HCL 10 MG/2 ML VIAL IV PUSH PRN (00:20)
[2016-09-02] MEDS: HEPARIN-D5W INJ 250 ML IV SCH (01:03)
[2016-09-02] MEDS: cefTRIAXone INJ 1,000 MG in SODIUM CHLORIDE 0.9% INJ 100 ML IV SCH ×2 (03:34→14:45)
[2016-09-02] MEDS: LEVOTHYROXINE SODIUM 75 MCG TAB PO SCH (05:00)
[2016-09-02 08:52] LABS: AUTOMATED NEUTROPHIL # 8.8 TH/MM3 (1.8-7.7); BASOPHIL % 0.1 % (0.0-2.0); EOSINOPHIL % 0.1 % (0.0-4.0); HEMATOCRIT 37.1 % (39.0-51.0); LYMPH % 4.6 % (9.0-44.0); LYMPHOCYTE # 0.5 TH/MM3 (1.0-4.8); MEAN CELL VOLUME 85.6 FL (80.0-100.0); MONO % 11.4 % (0.0-8.0); NEUT % 83.8 % (16.0-70.0); PLATELET COUNT 60 TH/MM3 (150-450); RED BLOOD COUNT 4.33 MIL/MM3 (4.50-5.90); RED CELL DISTRIBUTION WIDTH 13.5 % (11.6-17.2); WHITE BLOOD COUNT 10.5 TH/MM3 (4.0-11.0)
[2016-09-02 08:57] LABS: HEMO FLAGS AUTO DIFF
[2016-09-02 09:06] LABS: APTT (PATIENT) 78.3 SEC (24.3-30.1); INTERNATIONAL NORMALIZED RATIO 1.8 RATIO; PROTHROMBIN TIME - PATIENT 20.5 SEC (9.8-11.6)
[2016-09-02 09:23] LABS: BICARBONATE 28.6 MEQ/L (21.0-32.0); POTASSIUM 3.3 MEQ/L (3.5-5.1)
[2016-09-02] MEDS: SODIUM CHLORIDE 1 GRAM TAB PO SCH (09:25)
[2016-09-02] MEDS: APRISO 0.375 GM PO SCH (09:26)
[2016-09-02] MEDS: FLUDROCORTISONE ACETATE 0.1 MG TAB PO SCH (09:26)
[2016-09-02] MEDS: SODIUM CHLORIDE 0.9% FLUSH 5 ML FLUSH FLUSH SCH ×2 (09:27→20:21)
[2016-09-02 09:59] LABS: BANDS 4 % (0-6); NEUTROPHIL # MANUAL DIFF 9.8 TH/MM3 (1.8-7.7); PLATELET ESTIMATE SMEAR LOW (NORMAL); PLATELET MORPHOLOGY ENLARGED (NORMAL); POLYS (SEG NEUTROPHILS) 89 % (16-70); SCAN/DIFF FINAL DIFF MANUAL; WBC DIFF SAMPLE 100
[2016-09-02] MEDS: chlorproMAZINE HCL 25 MG TAB PO SCH ×2 (11:22→17:44)
[2016-09-02] MEDS: WARFARIN SOD 7.5 MG TAB PO SCH (16:00)
--- NOTE | 2016-09-02 16:51 | HHI.PR ---
Subjective Remarks Denies chest pain or sob. No palpitations. No n/v/d/c. Denies headache. No weakness or new motor deficit. BP still dropping with change in position. Has hiccups, will start torazine. Objective Vitals Vital Signs Date Time Temp Pulse Resp B/P Pulse Ox O2 Delivery O2 Flow Rate FiO2 09/02/16 11:50 97.9 82 20 138/76 94 09/02/16 09:16 94 21 09/02/16 07:44 96.0 84 19 178/75 95 09/02/16 04:00 95.8 85 20 168/81 95 09/02/16 00:00 98.7 77 20 148/73 96 09/01/16 20:00 99.0 88 20 151/78 96 09/01/16 19:15 21 I/O 09/01/16 09/01/16 09/01/16 09/02/16 09/02/16 09/02/16 07:00 15:00 23:00 07:00 15:00 23:00 Intake Total 1098 ml 360 ml Output Total 300 ml 400 ml 200 ml Balance 798 ml -40 ml -200 ml Intake Oral 240 ml 360 ml IV Total 858 ml Output Urine Total 300 ml 400 ml 200 ml # Voids 3 5 # Bowel Movements 0 1 Result Diagram: 09/02/1681609/02/16816 Imaging Last Impressions Chest X-Ray 08/30/16 0000 Signed Impressions: Service Date/Time: August 13:58 - CONCLUSION: No acute cardiopulmonary disease. Ryan Nuno MD Head CT 08/29/16 0000 Signed Impressions: Service Date/Time: Monday, August 29, 2016 11:37 - CONCLUSION: Atrophy otherwise negative. Findings were called to Dr. Ryder at 1159. Earl Gonzales MD FACR Brain MRI 08/27/16 0000 Signed Impressions: Service Date/Time: Saturday, August 27, 2016 20:20 - CONCLUSION: 1. Moderate chronic ischemic changes in the white matter. No recent infarct. No mass, hemorrhage or shift. No significant change from August 25. Dany Park MD Objective Remarks GENERAL: Well-developed well-nourished. In no acute distress. Hard of hearing. SKIN: Warm and dry. No lesions noted. HEENT: Normocephalic. Pupils equal and round. Mucous membranes pink and moist. CARDIOVASCULAR: Regular rate and rhythm. No murmur appreciated. RESPIRATORY: No accessory muscle use. Clear to auscultation. Breath sounds equal bilaterally. GASTROINTESTINAL: Abdomen soft, non-tender, nondistended. Bowel sounds x4. MUSCULOSKELETAL: No obvious deformities. No clubbing or cyanosis. No edema. NEUROLOGICAL: Awake and alert. No focal neurological deficits. Moves upper and lower extremities spontaneously. Normal speech. PSYCHIATRIC: Appropriate mood and affect; insight and judgment normal. A/P Problem List: (1) TIA (transient ischemic attack) ICD Code: G45.9 Status: Acute (2) Hyponatremia ICD Code: E87.1 Status: Resolved (3) Thrombocytopenia ICD Code: D69.6 Status: Chronic Assessment and Plan 86-year-old male with a past medical history of atrial fibrillation on Coumadin (INR 1.4 in ER), left carotid artery stenosis, hypothyroidism, orthostatic hypotension, prostate cancer, and CAD was brought to the ED for symptoms of right weakness on 08/27/2016. Recently seen as a stroke alert on 08/24/16, discharged 08/26/2016, workup negative except carotid U/S on 08/25/2016 showed elevated velocity/ratio and left carotid system suggesting a 50-69% stenosis with no significant stenosis noted in the right carotid artery. E coli UTI. E. Coli bacteremia, now with 2/4 bottles positive blood cx. On IV rocephin. Consult ID, appreciate recommendations. Repeat blood cultures. TIA Subtherapeutic INR, per cardiology patient to leave the hospital when INR is therapeutic. Continue heparin until INR therapeutic, continue coumadin , pharm follwing Labs/imaging reviewed: EEG consistent with mild diffuse encephalopathy, but no focal abnormalities noted. Head CT and brain MRI with chronic changes, no acute findings. - PT, OT, ST consults, recommends rehab vs [facility] PT - Monitor on telemetry, Neurochecks, NIHSS - Neurology consulted; appreciate Dr. Almeida assistance - Continue heparin drip and bridge until Coumadin therapeutic (INR 1.4 on admit ) - Continue home coumadin; monitor for therapeutic dose/therapeutic INR - STROKE ALERT 08/29 - neuro consulted, repeat head CT unremarkable, suspect related to hypotensive event Hyponatremia Na 126. Will give NaCl tablet. Monitor Na closely Q6 hrs for fast correction. Continue IVF 0.9 NS. Check urinary Na and osmolality. Na worsening , will also consult nephrology. Hypokalemia: replace with PO KCl. Monitor and replace Mag normal. Monitor and replace. Orthostatic Hypotension: likely contributing to symptoms as above. Now also with worsening hyponatremia - sanya jacobsen - continue fludrocortisone - consulted patient's nursing informatics clinical analyst Dr. Siddiqui, appreciate recommendations - Patient and family educated on slow transitions and position changes to avoid symptoms Atrial Fibrillation on Coumadin, rate controlled - not on any rate controlling medications however HR mostly in 70s - continue anticoagulation with Coumadin, and Heparin drip until INR therapeutic , currently subtherapeutic, monitor INR, pharmacy cpnsult , following. Hiccups: Reglan as need. Chronic Thrombocytopenia (of undetermined origin refused marrow studies) - seen by Dr. Ding for monitoring in the past reconsult if needed - platelet count 88,000 on admission - follow trends in platelet counts All other medical conditions stable, continue home medications as appropriate. DVT prophylaxis - Heparin gtt/Coumadin Discharge Planning INR subtherapeutic, high risk for neurologic event, discharge planning to SNF when INR therapeutic, hyponatremia/lytes corrected Problem Qualifiers (1) TIA (transient ischemic attack): Qualified Code: G45.9 - Transient cerebral ischemia, unspecified type Nichole Ryder MD Sep 02, 2016 16:51
[2016-09-02] MEDS ORDERED: POTASSIUM CHLORIDE 10 MEQ CONTROLLED RELEASE TAB PO ONE (17:00)
[2016-09-02] MEDS ORDERED: MAGNESIUM HYDROXIDE SUSP 30 ML CUP PO PRN (17:15)
[2016-09-02] MEDS ORDERED: DOCUSATE SODIUM 50 MG/SENNA 8.6 MG TAB PO PRN (17:15)
[2016-09-02] MEDS ORDERED: BISACODYL 10 MG SUPP PR PRN (17:15)
--- NOTE | 2016-09-02 17:38 | PD.ID.CON ---
History of Present Illness Service ID Consult Requested By Edmund WINCHESTER Reason for Consult bacteremia UTI Primary Care Physician Kareem Rubin MD Diagnoses: History of Present Illness Pt unable to provide history, hx obtained from the chart Mr. Mark is an 86-year-old male with a past medical history of atrial fibrillation on Coumadin (INR 1.4 in ER), left carotid artery stenosis, hypertension, hypothyroidism, orthostatic hypotension, prostate cancer, and coronary artery disease was brought to the emergency room for symptoms of right hemiparesis on 08/27/2016. He was recently seen as a stroke alert on 08/24/16 and was discharged 08/26/2016. The workup during that admission was negative except carotid ultrasound on 08/25/2016 which showed elevated velocity/ratio and left carotid system suggesting a 50-69% stenosis with no significant stenosis noted in the right carotid artery. The patient was at the [facility] for a follow-up related to his previous hospitalization (mentioned above) when he had abrupt onset of right-sided weakness and slumped over to the right side. 911 was alerted by staff at the [place] and his symptoms had resolved by the time EMS arrived. While he was in our emergency room, he had an abrupt onset of aphasia, staring, and apparent confusion. Stroke alert was called. Per pt's family pt is quite confused to day and was very lethargic and sleepy all day He seems to him more alert now Three days ago pt wa noted to have low grade fever and UA and blood clx were done He is growing E.coli in blood clx 2/2 and urine clx; UA was cw UTI Family reporting h/o remote prostate ca He is on CFTX and is afebrile Review of Systems ROS Limitations: Poor Historian Past Family Social History Allergies: Coded Allergies: No Known Allergies (Unverified , 08/27/16) Past Medical History Syncopal episodes due to orthostasis Atrial fibrillation Carotid artery stenosis Hypothyroidism Hypertension Prostate CA s/p radiation 6 years ago Past Surgical History Collar bone repair Cholecystectomy Left knee surgery Appendectomy Active Ordered Medications Medications where reviewed in EMR Antibiotics Include: CFTX Family History Mother with diabetes mellitus and CVA Father with heart disease Sister with GA Social History . No Tobacco, Alcohol, Illicit Drugs . Physical Exam Vital Signs Vital Signs Date Time Temp Pulse Resp B/P Pulse Ox O2 Delivery O2 Flow Rate FiO2 09/02/16 15:57 95.5 77 20 148/69 95 09/02/16 11:50 97.9 82 20 138/76 94 09/02/16 09:16 94 21 09/02/16 07:44 96.0 84 19 178/75 95 09/02/16 04:00 95.8 85 20 168/81 95 09/02/16 00:00 98.7 77 20 148/73 96 09/01/16 20:00 99.0 88 20 151/78 96 09/01/16 19:15 21 Physical Exam CONSTITUTIONAL/GENERAL: This is an adequately nourished patient, in no apparent distress. TUBES/LINES/DRAINS: SKIN: No jaundice, rashes, or lesions. . Skin temperature appropriate. Not diaphoretic. HEAD: Atraumatic. Normocephalic. EYES: Pupils equal and round and reactive. Extraocular motions intact. No scleral icterus. No injection or drainage. Fundi not examined. ENT: oral mucosaet without visible erythema, exudates, masses, or lesions. NECK: Trachea midline. Supple, nontender. No palpable thyroid enlargement or nodularity. CARDIOVASCULAR: Regular rate and rhythm without murmurs, gallops, or rubs. No JVD. Peripheral pulses symmetric. RESPIRATORY/CHEST: Symmetric, unlabored respirations. Clear to auscultation. Breath sounds equal bilaterally. No wheezes, rales, or rhonchi. GASTROINTESTINAL: Abdomen soft, non-tender, nondistended. No hepato-splenomegaly , or palpable masses. No guarding. Bowel sounds present. GENITOURINARY: Without palpable bladder distension. MUSCULOSKELETAL: Extremities without clubbing, cyanosis, or edema. No joint tenderness or effusion noted. No calf tenderness. No mottling or clubbing. LYMPHATICS: No palpable cervical or supraclavicular adenopathy. NEUROLOGICAL: lethargic and confusedties. PSYCHIATRIC: unable to assess Laboratory Laboratory Tests Test 09/01/16 09/02/16 19:20 08:17 Sodium Level 126 126 White Blood Count 10.5 Red Blood Count 4.33 Hemoglobin 13.0 Hematocrit 37.1 Mean Corpuscular Volume 85.6 Mean Corpuscular Hemoglobin 30.0 Mean Corpuscular Hemoglobin 35.0 Concent Red Cell Distribution Width 13.5 Platelet Count 60 Mean Platelet Volume 10.6 Neutrophils (%) (Auto) 83.8 Lymphocytes (%) (Auto) 4.6 Monocytes (%) (Auto) 11.4 Eosinophils (%) (Auto) 0.1 Basophils (%) (Auto) 0.1 Neutrophils # (Auto) 8.8 Lymphocytes # (Auto) 0.5 Monocytes # (Auto) 1.2 Eosinophils # (Auto) 0.0 Basophils # (Auto) 0.0 CBC Comment AUTO DIFF Differential Total Cells 100 Counted Neutrophils % (Manual) 89 Band Neutrophils % 4 Lymphocytes % 2 Monocytes % 5 Neutrophils # (Manual) 9.8 Differential Comment FINAL DIFF MANUAL Platelet Estimate LOW Platelet Morphology Comment ENLARGED Prothrombin Time 20.5 Prothromb Time International 1.8 Ratio Activated Partial 78.3 Thromboplast Time Potassium Level 3.3 Chloride Level 88 Carbon Dioxide Level 28.6 Anion Gap 9 Blood Urea Nitrogen 21 Creatinine 0.94 Estimat Glomerular Filtration 76 Rate Random Glucose 109 Calcium Level 7.9 Date/Time Procedure Status Source Growth 08/31/16 09:20 Urine Culture - Final Complete Urine Clean Catch Escherichia Coli 08/30/16 17:35 Aerobic Blood Culture - Final Resulted Blood Peripheral Escherichia Coli 08/30/16 17:35 Anaerobic Blood Culture - Preliminary Resulted Blood Peripheral NO GROWTH IN 3 DAYS 08/30/16 17:30 Aerobic Blood Culture - Preliminary Resulted Blood Peripheral NO GROWTH IN 3 DAYS 08/30/16 17:30 Anaerobic Blood Culture - Final Resulted Escherichia Coli Result Diagram: 09/02/16 0817 09/02/16 0817 Imaging Last Impressions Chest X-Ray 08/30/16 0000 Signed Impressions: Service Date/Time: August 13:58 - CONCLUSION: No acute cardiopulmonary disease. Ryan Nuno MD Head CT 08/29/16 0000 Signed Impressions: Service Date/Time: Monday, August 29, 2016 11:37 - CONCLUSION: Atrophy otherwise negative. Findings were called to Dr. Ryder at 1159. Earl Gonzales MD FACR Brain MRI 08/27/16 0000 Signed Impressions: Service Date/Time: Saturday, August 27, 2016 20:20 - CONCLUSION: 1. Moderate chronic ischemic changes in the white matter. No recent infarct. No mass, hemorrhage or shift. No significant change from August 25. Dany Park MD Assessment and Plan Assessment and Plan UTI, sepsis, E.coli s/p recurrent stroke - cont CFTX for now - fu repeat BC - anticipate transition to po abx (cipro or levaquine) Discussed Condition With , son, dgtr @ b/s Vaishali Osborn MD Sep 02, 2016 17:38
[2016-09-02 17:53] LABS: APTT (PATIENT) 67.9 SEC (24.3-30.1)
[2016-09-02] MEDS: IOHEXOL 350 MG/ML 10 ML VIAL (for RAD DIAG) IV ONE (19:51)
[2016-09-02] MEDS: ATORVASTATIN 20 MG TAB PO SCH (20:21)
[2016-09-02] MEDS: SODIUM CHLOR 0.9% 1000 ML INJ 1,000 ML IV SCH (22:31)
[2016-09-03] VITALS (8 sets, daily range): BP systolic 121–178; BP diastolic 59–87; PULSE 74–85; RESP 18–20; TEMP 95.6–97.6; O2SAT 92–97
[2016-09-03 01:42] LABS: APTT (PATIENT) 73.8 SEC (24.3-30.1)
[2016-09-03] MEDS: chlorproMAZINE HCL 25 MG TAB PO SCH ×3 (01:59→18:36)
[2016-09-03] MEDS: HEPARIN-D5W INJ 250 ML IV SCH (02:04)
[2016-09-03] MEDS: cefTRIAXone INJ 1,000 MG in SODIUM CHLORIDE 0.9% INJ 100 ML IV SCH ×2 (02:05→15:00)
[2016-09-03] MEDS: LEVOTHYROXINE SODIUM 75 MCG TAB PO SCH (05:31)
--- NOTE | 2016-09-03 06:26 | MB ---
cc: ZAYRA MARSHALL MD DATE OF CONSULTATION 09/02/2016 REASON FOR CONSULTATION Hyponatremia for evaluation. HISTORY OF PRESENT ILLNESS This is an 86-year-old male with past medical history of hypertension, history of TIA, atrial fibrillation, hypothyroidism, prostate cancer, ischemic heart disease. He came to the hospital on August 27 with right hemiparesis. I was called to see the patient because of hyponatremia. The patient has sodium of 137 on presentation to the hospital and for the last 2-3 days it has gone down and now it is 126. The patient is not eating very good and he was also diagnosed with urinary tract infection with bacteremia with E-coli. The patient has been seen by Infectious Disease and given antibiotics. The patient was seen by the urologist and with a Stroke Alert on presentation was seen by the neurologist also. The patient has persistent hiccups going on and he was given Reglan and currently he is getting ceftriaxone for the infection. He is not eating very well because of the persistent hiccups and nausea. Denies any shortness of breath. No chest pain. PAST MEDICAL HISTORY 1. Hypertension. 2. Hypothyroidism. 3. Atrial fibrillation. 4. Ischemic heart disease. 5. Prostate cancer. PAST SURGICAL HISTORY 1. Cholecystectomy. 2. Left knee surgery. 3. Appendicectomy. 4. Collar bone repair. 5. Prostate radiation. REVIEW OF SYSTEMS The patient has generalized weakness, feeling tired. His right side weakness is slightly better. He still has poor appetite and has nausea and hiccups, not eating very well. There is no shortness of breath, no chest pain, no palpitation. No abdominal pain. No history of diarrhea. SOCIAL HISTORY There is no history of smoking or alcoholism. FAMILY HISTORY Noncontributory. ALLERGIES No known drug allergies. MEDICATIONS Currently he is on - 1. Florinef which was started on presentation and he is on 0.1 mg once a day. 2. Levothyroxine 75 mcg daily. 3. Warfarin 7.5 mg daily. 4. Lipitor 20 mg q. H.s. 5. Warfarin 2.5 mg on Saturday, Saturday and Saturday. 6. Ceftriaxone 1 gram q.12 hours. 7. Thorazine 25 mg q.8 hours. 8. Tylenol as needed. 9. Zofran as needed. 10. Narcan as needed. 11. Reglan as needed. 12. Jaja-Colace as needed. PHYSICAL EXAMINATION GENERAL: The patient is awake, alert. He is not in acute distress. VITAL SIGNS: Last blood pressure was 148/69, temperature 95.5, oxygen saturation was 95% on room air. HEENT: Pupils equal, reacting to light. Nonicteric sclerae. Conjunctivae normal. NECK: Supple. JVD is not elevated. LUNGS: The patient has bilateral decreased air entry with scattered wheezing. HEART: S1, S2, irregular. ABDOMEN: Slightly distended, soft. There is no tenderness. Bowel sounds positive. EXTREMITIES: There is mild edema in the legs. INVESTIGATIONS WBC count is 10.5, hemoglobin 13.3, platelet count of with neutrophils 83.8%. Sodium 126, potassium 3.3, chloride 88, bicarb 28.6, BUN 21, creatinine 0.94, glucose is 109, osmolarity is 270, calcium is 7.9. INR is 1.8 with PTT of 67.9. Urine toxicology screen was negative. Urinalysis showing protein of 100, urine sodium was 12. Urine culture and the blood culture showing E. Coli. The repeat blood culture from today is negative so far. IMAGING STUDIES The patient had a chest x-ray done three days ago which shows that lung [place] are clear. CT scan of the brain was done three days ago which shows atrophy and otherwise negative for any bleeding. MRI of the brain was done which shows chronic ischemic changes, no acute infarction. ASSESSMENT AND PLAN 1. Hyponatremia. 2. Hypokalemia. 3. Hypertension. 4. TIA. 5. Atrial fibrillation 6. Thrombocytopenia. The patient has low sodium. Clinically he is looks euvolemic. The low sodium is possibly related to decreased oral intake. His urine sodium is also low. I will give her some normal saline and we need to encourage oral intake. He is also started on sodium chloride tablets which possibly will help since his oral intake is not that much and he is also on Florinef which is supposed to increase sodium level. If the sodium does not improve and he is adequately hydrated, then we will consider giving him one dose of Lasix and also increase the sodium chloride to b.i.d. Thank you for the consultation. The patient be followed by Dr. Friedman from tomorrow. Zayra Marshall MD AQJ/SSB /9:57 PM /5:59 AM
[2016-09-03 07:32] LABS: AUTOMATED NEUTROPHIL # 6.2 TH/MM3 (1.8-7.7); EOSINOPHIL % 0.5 % (0.0-4.0); HEMATOCRIT 35.1 % (39.0-51.0); LYMPH % 5.7 % (9.0-44.0); LYMPHOCYTE # 0.4 TH/MM3 (1.0-4.8); MEAN CELL VOLUME 86.2 FL (80.0-100.0); MEAN CORPUSCULAR HEMOGLOBIN 29.7 PG (27.0-34.0); MEAN CORPUSCULAR HGB CONC 34.4 % (32.0-36.0); MONO % 10.4 % (0.0-8.0); NEUT % 83.4 % (16.0-70.0); PLATELET COUNT 105 TH/MM3 (150-450); RED BLOOD COUNT 4.07 MIL/MM3 (4.50-5.90); RED CELL DISTRIBUTION WIDTH 13.8 % (11.6-17.2); WHITE BLOOD COUNT 7.5 TH/MM3 (4.0-11.0)
[2016-09-03 07:36] LABS: INTERNATIONAL NORMALIZED RATIO 2.2 RATIO; PROTHROMBIN TIME - PATIENT 25.3 SEC (9.8-11.6)
[2016-09-03 07:39] LABS: HEMO FLAGS AUTO DIFF
[2016-09-03 07:43] LABS: APTT (PATIENT) 67.8 SEC (24.3-30.1)
[2016-09-03 07:57] LABS: BICARBONATE 26.9 MEQ/L (21.0-32.0); MAGNESIUM 2.3 MG/DL (1.5-2.5); POTASSIUM 3.5 MEQ/L (3.5-5.1)
[2016-09-03] MEDS: FLUDROCORTISONE ACETATE 0.1 MG TAB PO SCH (08:34)
[2016-09-03] MEDS: APRISO 0.375 GM PO SCH (08:34)
[2016-09-03] MEDS: SODIUM CHLORIDE 0.9% FLUSH 5 ML FLUSH FLUSH SCH ×2 (08:34→20:52)
[2016-09-03] MEDS: SODIUM CHLORIDE 1 GRAM TAB PO SCH (08:34)
[2016-09-03 09:22] LABS: PLATELET ESTIMATE SMEAR LOW (NORMAL)
[2016-09-03 09:23] LABS: PLATELET MORPHOLOGY ENLARGED (NORMAL); SCAN/DIFF AUTO DIFF CONFIRMED
[2016-09-03] MEDS: SODIUM CHLOR 0.9% 1000 ML INJ 1,000 ML IV SCH ×2 (09:58→20:55)
--- NOTE | 2016-09-03 12:24 | HHI.NPPN ---
Subjective Interval History Lying in bed, he does not respond to stimuli. Family at bedside. (Renetta Izaguirre) Review of Systems General General Remarks unable to evaluate (Renetta Izaguirre) Objective Data Data 09/02/16 09/03/16 19:00 07:00 Intake Total 120 ml Output Total 200 ml Balance -80 ml Intake Oral 120 ml Output Urine Total 200 ml # Voids 9 6 # Bowel Movements 1 Vital Signs Date Time Temp Pulse Resp B/P Pulse Ox O2 Delivery O2 Flow Rate FiO2 09/03/16 11:53 96.5 74 20 135/87 96 09/03/16 09:59 85 09/03/16 08:51 155/76 09/03/16 08:37 97.6 80 20 178/83 96 09/03/16 04:00 96.3 74 18 137/67 93 09/03/16 00:00 95.6 83 18 142/65 92 09/02/16 20:00 97.3 81 20 147/72 96 09/02/16 19:55 83 09/02/16 15:57 95.5 77 20 148/69 95 (Renetta Izaguirre) -: 09/03/16 0654 09/03/16 0654 Microbiology 09/02/16 Aerobic Blood Culture - Preliminary, Resulted NO GROWTH IN 1 DAY 09/02/16 Anaerobic Blood Culture - Preliminary, Resulted NO GROWTH IN 1 DAY 09/02/16 Aerobic Blood Culture - Preliminary, Resulted NO GROWTH IN 1 DAY 09/02/16 Anaerobic Blood Culture - Preliminary, Resulted NO GROWTH IN 1 DAY (Renetta Izaguirre) Physical Exam General Appearance: Well Developed, No Acute Distress, Comfortable, Sleeping, Malnourished (Renetta Izaguirre) Neck Neck Exam: Neck Supple (Renetta Izaguirre) Pulmonary Resp Exam: Clear Bilaterally, Breath Sounds Equal (Renetta Izaguirre) Cardiology CV Exam: Regular, Normal Sinus Rhythm (Renetta Izaguirre) Gastrointestinal/Abdomen GI Exam: Soft, Non-Tender (Renetta Izaguirre) Musculoskeletal MS Exam: Joints Intact, Normal Gait (Renetta Izaguirre) Integumentary Skin Exam: Warm, Dry (Renetta Izaguirre) Extremeties Extremities Exam: No Edema, Pedal Pulses Palpable (Renetta Izaguirre) Neurologic Neuro Exam: Sedated (Renetta Izaguirre) Assessment/Plan Discussed Condition With: Relative Assessment Summary: Hypertension Electrolyte Assessment: Hyponatremia Problem List: (1) Hyponatremia Plan: Appears dry, hypovolemic hyponatremia he is responding to IVF of NS, continue at 84 cc/hr he has normal renal function no oral NaCl tabs required, will stop at this time encourage oral intake BMP in am he was on florinef prior to admission for unknown reasons, possibly for orthostatic hypotension (2) TIA (transient ischemic attack) Plan: on Heparin gtt continue supportive care (Renetta Izaguirre) Plan patient was seen and examined. May have hypovolemic hyponatremia, now improving with 0.9 % NaCl. (Moi Friedman MD) Problem Qualifiers (1) TIA (transient ischemic attack): Qualified Code: G45.9 - Transient cerebral ischemia, unspecified type Renetta Izaguirre Sep 03, 2016 12:24 Moi Friedman MD Sep 03, 2016 16:47
--- NOTE | 2016-09-03 12:53 | HHI.PR ---
Subjective Remarks Feels tired, he si sleeping more. Says still with hiccups but improve. No n/v/d/ c. No seizures or syncope. No fever or chills. No abdominal pain or urinary changes. Objective Vitals Vital Signs Date Time Temp Pulse Resp B/P Pulse Ox O2 Delivery O2 Flow Rate FiO2 09/03/16 11:53 96.5 74 20 135/87 96 09/03/16 09:59 85 09/03/16 08:51 155/76 09/03/16 08:37 97.6 80 20 178/83 96 09/03/16 04:00 96.3 74 18 137/67 93 09/03/16 00:00 95.6 83 18 142/65 92 09/02/16 20:00 97.3 81 20 147/72 96 09/02/16 19:55 83 09/02/16 15:57 95.5 77 20 148/69 95 I/O 09/02/16 09/02/16 09/02/16 09/03/16 09/03/16 09/03/16 07:00 15:00 23:00 07:00 15:00 23:00 Intake Total 120 ml 886 ml Output Total 200 ml Balance 120 ml -200 ml 886 ml Intake Oral 120 ml IV Total 886 ml Output Urine Total 200 ml # Voids 9 6 # Bowel Movements 1 Result Diagram: 09/03/16 0654 09/03/16 0654 Imaging Last Impressions Chest X-Ray 08/30/16 0000 Signed Impressions: Service Date/Time: August 13:58 - CONCLUSION: No acute cardiopulmonary disease. Ryan Nuno MD Head CT 08/29/16 0000 Signed Impressions: Service Date/Time: Monday, August 29, 2016 11:37 - CONCLUSION: Atrophy otherwise negative. Findings were called to Dr. Ryder at 1159. Earl Gonzales MD FACR Brain MRI 08/27/16 0000 Signed Impressions: Service Date/Time: Saturday, August 27, 2016 20:20 - CONCLUSION: 1. Moderate chronic ischemic changes in the white matter. No recent infarct. No mass, hemorrhage or shift. No significant change from August 25. Dany Park MD Objective Remarks GENERAL: Well-developed well-nourished. In no acute distress. Hard of hearing. SKIN: Warm and dry. No lesions noted. HEENT: Normocephalic. Pupils equal and round. Mucous membranes pink and moist. CARDIOVASCULAR: Regular rate and rhythm. No murmur appreciated. RESPIRATORY: No accessory muscle use. Clear to auscultation. Breath sounds equal bilaterally. GASTROINTESTINAL: Abdomen soft, non-tender, nondistended. Bowel sounds x4. MUSCULOSKELETAL: No obvious deformities. No clubbing or cyanosis. No edema. NEUROLOGICAL: Awake and alert. No focal neurological deficits. Moves upper and lower extremities spontaneously. Normal speech. PSYCHIATRIC: Appropriate mood and affect; insight and judgment normal. A/P Problem List: (1) TIA (transient ischemic attack) ICD Code: G45.9 Status: Acute (2) Hyponatremia ICD Code: E87.1 Status: Resolved (3) Thrombocytopenia ICD Code: D69.6 Status: Chronic Assessment and Plan 86-year-old male with a past medical history of atrial fibrillation on Coumadin (INR 1.4 in ER), left carotid artery stenosis, hypothyroidism, orthostatic hypotension, prostate cancer, and CAD was brought to the ED for symptoms of right weakness on 08/27/2016. Recently seen as a stroke alert on 08/24/16, discharged 08/26/2016, workup negative except carotid U/S on 08/25/2016 showed elevated velocity/ratio and left carotid system suggesting a 50-69% stenosis with no significant stenosis noted in the right carotid artery. E coli UTI. E. Coli bacteremia, now with 2/4 bottles positive blood cx. On IV rocephin. Consult ID, appreciate recommendations. Repeat blood cultures. TIA Subtherapeutic INR, per cardiology patient to leave the hospital when INR is therapeutic. Continue heparin until INR therapeutic, continue coumadin , pharm follwing Labs/imaging reviewed: EEG consistent with mild diffuse encephalopathy, but no focal abnormalities noted. Head CT and brain MRI with chronic changes, no acute findings. - PT, OT, ST consults, recommends rehab vs [facility] PT - Monitor on telemetry, Neurochecks, NIHSS - Neurology consulted; appreciate Dr. Almeida assistance - Continue heparin drip and bridge until Coumadin therapeutic (INR 1.4 on admit ) - Continue home coumadin; monitor for therapeutic dose/therapeutic INR - STROKE ALERT 08/29 - neuro consulted, repeat head CT unremarkable, suspect related to hypotensive event Hyponatremia Na 126. Will give NaCl tablet. Monitor Na closely Q6 hrs for fast correction. Continue IVF 0.9 NS. Check urinary Na and osmolality. Na worsening , will also consult nephrology. Hypokalemia: replace with PO KCl. Monitor and replace Mag normal. Monitor and replace. Orthostatic Hypotension: likely contributing to symptoms as above. Now also with worsening hyponatremia - sanya hosfredrick - continue fludrocortisone - consulted patient's women's garment fitter Dr. Siddiqui, appreciate recommendations - Patient and family educated on slow transitions and position changes to avoid symptoms Atrial Fibrillation on Coumadin, rate controlled - not on any rate controlling medications however HR mostly in 70s - continue anticoagulation with Coumadin, and Heparin drip until INR therapeutic , currently subtherapeutic, monitor INR, pharmacy cpnsult , following. Hiccups: Reglan as need. Chronic Thrombocytopenia (of undetermined origin refused marrow studies) - seen by Dr. Ding for monitoring in the past reconsult if needed - platelet count 88,000 on admission - follow trends in platelet counts All other medical conditions stable, continue home medications as appropriate. DVT prophylaxis - Heparin gtt/Coumadin Discharge Planning INR subtherapeutic, high risk for neurologic event, discharge planning to SNF when INR therapeutic, hyponatremia/lytes corrected Problem Qualifiers (1) TIA (transient ischemic attack): Qualified Code: G45.9 - Transient cerebral ischemia, unspecified type Nichole Ryder MD Sep 03, 2016 12:53
[2016-09-03 15:18] LABS: APTT (PATIENT) 53.9 SEC (24.3-30.1)
[2016-09-03] MEDS ORDERED: WARFARIN SOD 2.5 MG TAB PO SCH (16:00)
[2016-09-03] MEDS ORDERED: WARFARIN SOD 5 MG TAB PO SCH (16:00)
[2016-09-03] MEDS: ATORVASTATIN 20 MG TAB PO SCH (20:53)
[2016-09-03 20:59] LABS: APTT (PATIENT) 90.2 SEC (24.3-30.1)
[2016-09-04] VITALS (9 sets, daily range): BP systolic 151–187; BP diastolic 72–94; PULSE 76–91; RESP 18–21; TEMP 95.1–97.5; O2SAT 95–97
[2016-09-04] MEDS: chlorproMAZINE HCL 25 MG TAB PO SCH ×3 (03:24→19:24)
[2016-09-04] MEDS: cefTRIAXone INJ 1,000 MG in SODIUM CHLORIDE 0.9% INJ 100 ML IV SCH ×2 (03:26→16:14)
[2016-09-04 04:01] LABS: AUTOMATED NEUTROPHIL # 5.3 TH/MM3 (1.8-7.7); BASOPHIL % 0.3 % (0.0-2.0); EOSINOPHIL # 0.1 TH/MM3 (0-0.4); EOSINOPHIL % 1.1 % (0.0-4.0); HEMATOCRIT 30.5 % (39.0-51.0); HEMO FLAGS DIFF FINAL; LYMPH % 6.7 % (9.0-44.0); LYMPHOCYTE # 0.4 TH/MM3 (1.0-4.8); MEAN CELL VOLUME 88.5 FL (80.0-100.0); MEAN CORPUSCULAR HEMOGLOBIN 30.3 PG (27.0-34.0); MEAN CORPUSCULAR HGB CONC 34.3 % (32.0-36.0); MONO % 8.7 % (0.0-8.0); NEUT % 83.2 % (16.0-70.0); PLATELET COUNT 119 TH/MM3 (150-450); RED BLOOD COUNT 3.45 MIL/MM3 (4.50-5.90); RED CELL DISTRIBUTION WIDTH 14.1 % (11.6-17.2); WHITE BLOOD COUNT 6.3 TH/MM3 (4.0-11.0)
[2016-09-04 04:13] LABS: INTERNATIONAL NORMALIZED RATIO 2.9 RATIO; PROTHROMBIN TIME - PATIENT 33.6 SEC (9.8-11.6)
[2016-09-04 04:14] LABS: APTT (PATIENT) 68.1 SEC (24.3-30.1)
[2016-09-04 04:22] LABS: BICARBONATE 22.4 MEQ/L (21.0-32.0); MAGNESIUM 1.7 MG/DL (1.5-2.5)
[2016-09-04 04:25] LABS: POTASSIUM 2.8 MEQ/L (3.5-5.1)
[2016-09-04 04:39] LABS: CALCIUM-PROTEIN CORRECTED 7.4 MG/DL (8.5-10.1)
[2016-09-04] MEDS ORDERED: CALCIUM GLUCONATE INJ 2 GM in DEXTROSE 5% IN WATER 100ML INJ 100 ML IV ONE ×4 (04:45→11:00)
[2016-09-04] MEDS ORDERED: POTASSIUM CHLORIDE 20 MEQ CONTROLLED RELEASE TAB PO ONE (04:45)
[2016-09-04] MEDS: LEVOTHYROXINE SODIUM 75 MCG TAB PO SCH (05:28)
[2016-09-04] MEDS: POTASSIUM CHLOR 20 MEQ PREMIX 100 ML IV SCH ×4 (05:29→14:23)
[2016-09-04] MEDS: SODIUM CHLORIDE 0.9% FLUSH 5 ML FLUSH FLUSH SCH ×2 (08:26→21:45)
[2016-09-04] MEDS: FLUDROCORTISONE ACETATE 0.1 MG TAB PO SCH (08:26)
[2016-09-04] MEDS: APRISO 0.375 GM PO SCH (08:27)
[2016-09-04] MEDS: SODIUM CHLOR 0.9% 1000 ML INJ 1,000 ML IV SCH (08:27)
--- NOTE | 2016-09-04 10:19 | HHI.PR ---
Subjective Remarks Feels less lightheadedness and he is able to move easily however his BP is high. No n/v/d/c. Says he feels much better today. No fever or chills overnight. No more hiccups. Objective Vitals Vital Signs Date Time Temp Pulse Resp B/P Pulse Ox O2 Delivery O2 Flow Rate FiO2 09/04/16 08:16 91 09/04/16 07:59 97.1 76 20 184/86 97 154/74 169/88 09/04/16 05:34 95.9 77 21 179/87 95 172/94 151/79 09/04/16 00:41 96.9 81 18 186/89 96 09/04/16 00:41 172/85 09/03/16 20:54 97.0 76 19 149/76 97 09/03/16 16:08 97.1 76 20 121/59 96 09/03/16 11:53 96.5 74 20 135/87 96 I/O 09/03/16 09/03/16 09/03/16 09/04/16 09/04/16 09/04/16 07:00 15:00 23:00 07:00 15:00 23:00 Intake Total 886 ml 900 ml Output Total 200 ml 750 ml Balance 886 ml 700 ml -750 ml Intake Oral 900 ml IV Total 886 ml Output Urine Total 200 ml 750 ml # Voids 6 3 # Bowel Movements 0 0 Result Diagram: 09/04/16 0324 09/04/16 0324 Imaging Last Impressions Chest X-Ray 08/30/16 0000 Signed Impressions: Service Date/Time: August 13:58 - CONCLUSION: No acute cardiopulmonary disease. Ryan Nuno MD Head CT 08/29/16 0000 Signed Impressions: Service Date/Time: Monday, August 29, 2016 11:37 - CONCLUSION: Atrophy otherwise negative. Findings were called to Dr. Ryder at 1159. Earl Gonzales MD FACR Brain MRI 08/27/16 0000 Signed Impressions: Service Date/Time: Saturday, August 27, 2016 20:20 - CONCLUSION: 1. Moderate chronic ischemic changes in the white matter. No recent infarct. No mass, hemorrhage or shift. No significant change from August 25. Dany Park MD Objective Remarks GENERAL: Well-developed well-nourished. In no acute distress. Hard of hearing. SKIN: Warm and dry. No lesions noted. HEENT: Normocephalic. Pupils equal and round. Mucous membranes pink and moist. CARDIOVASCULAR: Regular rate and rhythm. No murmur appreciated. RESPIRATORY: No accessory muscle use. Clear to auscultation. Breath sounds equal bilaterally. GASTROINTESTINAL: Abdomen soft, non-tender, nondistended. Bowel sounds x4. MUSCULOSKELETAL: No obvious deformities. No clubbing or cyanosis. No edema. NEUROLOGICAL: Awake and alert. No focal neurological deficits. Moves upper and lower extremities spontaneously. Normal speech. PSYCHIATRIC: Appropriate mood and affect; insight and judgment normal. A/P Problem List: (1) TIA (transient ischemic attack) ICD Code: G45.9 Status: Acute (2) Hyponatremia ICD Code: E87.1 Status: Resolved (3) Thrombocytopenia ICD Code: D69.6 Status: Chronic Assessment and Plan 86-year-old male with a past medical history of atrial fibrillation on Coumadin (INR 1.4 in ER), left carotid artery stenosis, hypothyroidism, orthostatic hypotension, prostate cancer, and CAD was brought to the ED for symptoms of right weakness on 08/27/2016. Recently seen as a stroke alert on 08/24/16, discharged 08/26/2016, workup negative except carotid U/S on 08/25/2016 showed elevated velocity/ratio and left carotid system suggesting a 50-69% stenosis with no significant stenosis noted in the right carotid artery. E coli UTI. E. Coli bacteremia, now with 2/4 bottles positive blood cx. On IV rocephin. Consult ID, appreciate recommendations. Repeat blood cultures. TIA Subtherapeutic INR, per cardiology patient to leave the hospital when INR is therapeutic. Continue heparin until INR therapeutic, continue coumadin , pharm follwing Labs/imaging reviewed: EEG consistent with mild diffuse encephalopathy, but no focal abnormalities noted. Head CT and brain MRI with chronic changes, no acute findings. - PT, OT, ST consults, recommends rehab vs [facility] PT - Monitor on telemetry, Neurochecks, NIHSS - Neurology consulted; appreciate Dr. Almeida assistance - Continue heparin drip and bridge until Coumadin therapeutic (INR 1.4 on admit ) - Continue home coumadin; monitor for therapeutic dose/therapeutic INR - STROKE ALERT 08/29 - neuro consulted, repeat head CT unremarkable, suspect related to hypotensive event Hyponatremia Na 126. Will give NaCl tablet. Monitor Na closely Q6 hrs for fast correction. Continue IVF 0.9 NS. Check urinary Na and osmolality. Na worsening , will also consult nephrology. Hypokalemia: replace with PO KCl. Monitor and replace Mag normal. Monitor and replace. Orthostatic Hypotension: likely contributing to symptoms as above. Now also with worsening hyponatremia - sanya jacobsen - continue fludrocortisone - consulted patient's blood bank coordinator Dr. Siddiqui, appreciate recommendations - Patient and family educated on slow transitions and position changes to avoid symptoms Atrial Fibrillation on Coumadin, rate controlled - not on any rate controlling medications however HR mostly in 70s - continue anticoagulation with Coumadin, and Heparin drip until INR therapeutic , currently subtherapeutic, monitor INR, pharmacy cpnsult , following. Hiccups: Reglan as need. Chronic Thrombocytopenia (of undetermined origin refused marrow studies) - seen by Dr. Ding for monitoring in the past reconsult if needed - platelet count 88,000 on admission - follow trends in platelet counts All other medical conditions stable, continue home medications as appropriate. DVT prophylaxis - Heparin gtt/Coumadin Discharge Planning INR subtherapeutic, high risk for neurologic event, discharge planning to SNF when INR therapeutic, hyponatremia/lytes corrected, treat infection. DC when improved and cleared by consultants. Problem Qualifiers (1) TIA (transient ischemic attack): Qualified Code: G45.9 - Transient cerebral ischemia, unspecified type Nichole Ryder MD Sep 04, 2016 10:19
[2016-09-04] MEDS ORDERED: POTASSIUM CHLORIDE 10 MEQ CONTROLLED RELEASE TAB PO ONE (10:30)
[2016-09-04] MEDS ORDERED: MAGNESIUM OXIDE 400 MG TAB PO ONE (10:30)
[2016-09-04] MEDS ORDERED: 1/2 NS + KCL 20 MEQ INJ 1,000 ML IV SCH (11:00)
[2016-09-04 12:02] LABS: APTT (PATIENT) 49.3 SEC (24.3-30.1)
--- NOTE | 2016-09-04 12:09 | HHI.NPPN ---
Subjective Complaints: Confused Interval History He is having hiccups. Sodium has corrected, hypokalemic today. (Renetta Izaguirre) Review of Systems General General Remarks unable to evaluate (Renetta Izaguirre) Objective Data Data 09/03/16 09/04/16 19:00 07:00 Intake Total 1546 ml 240 ml Output Total 950 ml Balance 1546 ml -710 ml Intake Oral 660 ml 240 ml IV Total 886 ml Output Urine Total 950 ml # Voids 3 # Bowel Movements 0 Vital Signs Date Time Temp Pulse Resp B/P Pulse Ox O2 Delivery O2 Flow Rate FiO2 09/04/16 08:16 91 09/04/16 07:59 97.1 76 20 184/86 97 154/74 169/88 09/04/16 05:34 95.9 77 21 179/87 95 172/94 151/79 09/04/16 00:41 96.9 81 18 186/89 96 09/04/16 00:41 172/85 09/03/16 20:54 97.0 76 19 149/76 97 09/03/16 16:08 97.1 76 20 121/59 96 (Renetta Izaguirre) -: 09/04/16 0324 09/04/16 0324 Physical Exam General Appearance: Well Developed, No Acute Distress, Comfortable, Sleeping, Malnourished Appearance Remarks hiccups (Renetta Izaguirre) Neck Neck Exam: Neck Supple (Renetta Izaguirre) Pulmonary Resp Exam: Clear Bilaterally, Breath Sounds Equal (Renetta Izaguirre) Cardiology CV Exam: Regular, Normal Sinus Rhythm (Renetta Izaguirre) Gastrointestinal/Abdomen GI Exam: Soft, Non-Tender, Bowel Sounds Present (Renetta Izaguirre) Musculoskeletal MS Exam: Joints Intact, Normal Gait, Normal Tone, Unable to Ambulate (Renetta Izaguirre) Integumentary Skin Exam: Warm, Dry (Renetta Izaguirre) Extremeties Extremities Exam: No Edema, Pedal Pulses Palpable (Renetta Izaguirre) Neurologic Neuro Exam: Awake, Moving All Extremities, Stuporous (Renetta Izaguirre) Assessment/Plan Discussed Condition With: Relative Assessment Summary: Hypertension Electrolyte Assessment: Hypokalemia, Hyponatremia Problem List: (1) Hyponatremia Plan: Hypovolemic hyponatremia Responded well to IVF ; changed to 1/2 NS with 20 mEq KCL encourage oral intake, he has passed swallow evaluation he has normal renal function BMP in am he was on florinef prior to admission for unknown reasons, possibly for orthostatic hypotension (2) TIA (transient ischemic attack) Plan: on Heparin gtt continue supportive care (3) Hypokalemia Plan: IV and PO replacement given he is also on IVF with 20 mEq KCL (Renetta Izaguirre) Plan patient was seen and examined. Hyponatremia has improved. Changed IVF to 1/2NS with KCl. Patient is bothered by almost continuous hiccups. Thorazine makes him drowsy. (Moi Friedman MD) Problem Qualifiers (1) TIA (transient ischemic attack): Qualified Code: G45.9 - Transient cerebral ischemia, unspecified type Renetta Izaguirre Sep 04, 2016 12:09 Moi Friedman MD Sep 04, 2016 17:30
[2016-09-04] MEDS ORDERED: WARFARIN SOD 7.5 MG TAB PO SCH (16:00)
[2016-09-04 18:05] LABS: APTT (PATIENT) 50.2 SEC (24.3-30.1)
[2016-09-04] MEDS: ATORVASTATIN 20 MG TAB PO SCH (21:44)
[2016-09-05 00:25] VITALS: BP 176/84; PULSE 91; RESP 22; TEMP 97.4; O2SAT 96
[2016-09-05] MEDS: chlorproMAZINE HCL 25 MG TAB PO SCH ×2 (02:40→10:16)
[2016-09-05] MEDS: cefTRIAXone INJ 1,000 MG in SODIUM CHLORIDE 0.9% INJ 100 ML IV SCH ×2 (02:40→14:45)
[2016-09-05 04:15] VITALS: BP 185/86; PULSE 75; RESP 16; TEMP 97.3; O2SAT 98
[2016-09-05] MEDS: LEVOTHYROXINE SODIUM 75 MCG TAB PO SCH (06:44)
[2016-09-05 08:25] VITALS: BP 195/92; PULSE 86; RESP 20; TEMP 97.6; O2SAT 95
[2016-09-05 09:21] LABS: AUTOMATED NEUTROPHIL # 7.8 TH/MM3 (1.8-7.7); BASOPHIL % 0.3 % (0.0-2.0); EOSINOPHIL # 0.1 TH/MM3 (0-0.4); EOSINOPHIL % 1.3 % (0.0-4.0); HEMO FLAGS DIFF FINAL; LYMPH % 6.1 % (9.0-44.0); LYMPHOCYTE # 0.6 TH/MM3 (1.0-4.8); MEAN CELL VOLUME 87.9 FL (80.0-100.0); MEAN CORPUSCULAR HEMOGLOBIN 30.3 PG (27.0-34.0); MEAN CORPUSCULAR HGB CONC 34.5 % (32.0-36.0); MONO % 6.6 % (0.0-8.0); NEUT % 85.7 % (16.0-70.0); PLATELET COUNT 213 TH/MM3 (150-450); RED BLOOD COUNT 4.21 MIL/MM3 (4.50-5.90); RED CELL DISTRIBUTION WIDTH 14.3 % (11.6-17.2); WHITE BLOOD COUNT 9.1 TH/MM3 (4.0-11.0)
[2016-09-05 09:28] LABS: INTERNATIONAL NORMALIZED RATIO 2.1 RATIO; PROTHROMBIN TIME - PATIENT 24.2 SEC (9.8-11.6)
[2016-09-05 09:46] LABS: BICARBONATE 29.6 MEQ/L (21.0-32.0); POTASSIUM 3.8 MEQ/L (3.5-5.1)
[2016-09-05] MEDS: FLUDROCORTISONE ACETATE 0.1 MG TAB PO SCH (10:15)
[2016-09-05] MEDS ORDERED: LACTATED RINGER'S 1000 ML INJ 1,000 ML IV SCH (10:15)
[2016-09-05] MEDS: APRISO 0.375 GM PO SCH (10:16)
[2016-09-05] MEDS: SODIUM CHLORIDE 0.9% FLUSH 5 ML FLUSH FLUSH SCH (10:16)
[2016-09-05] MEDS ORDERED: LEVA750T PO (12:21)
--- NOTE | 2016-09-05 12:21 | HHI.DS ---
Discharge Summary Admission Date Aug 27, 2016 at 17:20 Discharge Date: Sep 05, 2016 Admitting Diagnosis TIA (1) TIA (transient ischemic attack) ICD Code: G45.9 Diagnosis: Principal (2) Hyponatremia ICD Code: E87.1 Diagnosis: Principal (3) Thrombocytopenia ICD Code: D69.6 Diagnosis: Secondary (4) Anticoagulated on Coumadin ICD Code: Z51.81 Diagnosis: Principal (5) Paroxysmal atrial fibrillation ICD Code: I48.0 Diagnosis: Secondary (6) Syncope ICD Code: R55 Diagnosis: Principal (7) Hiccups ICD Code: R06.6 Diagnosis: Principal (8) Generalized weakness ICD Code: R53.1 Diagnosis: Secondary (9) Orthostatic hypotension ICD Code: I95.1 Diagnosis: Principal (10) Hypertension ICD Code: I10 Diagnosis: Secondary (11) Falls ICD Code: W19.XXXA Diagnosis: Principal Procedures none Brief History - From Admission Mr. Mark is an 86-year-old male with a past medical history of atrial fibrillation on Coumadin (INR 1.4 in ER), left carotid artery stenosis, hypertension, hypothyroidism, orthostatic hypotension, prostate cancer, and coronary artery disease was brought to the emergency room for symptoms of right hemiparesis on 08/27/2016. He was recently seen as a stroke alert on 08/24/16 and was discharged 08/26/2016. The workup during that admission was negative except carotid ultrasound on 08/25/2016 which showed elevated velocity/ratio and left carotid system suggesting a 50-69% stenosis with no significant stenosis noted in the right carotid artery. The patient was at the [facility] for a follow-up related to his previous hospitalization (mentioned above) when he had abrupt onset of right-sided weakness and slumped over to the right side. 911 was alerted by staff at the [facility] and his symptoms had resolved by the time EMS arrived. While he was in our emergency room, he had an abrupt onset of aphasia, staring, and apparent confusion. Stroke alert was called. He was seen and evaluated by Dr. Luna, neurologist and also was started on a heparin drip. Head CT with no acute infarct, acute hemorrhage, mass effect, or extra-axial fluid collections. Stable. Ventricular and subcortical white matter small vessel ischemic changes are noted. Old tiny lacunar infarcts with thin the right basal ganglia. Stable atrophy. Brain MRI with moderate chronic ischemic changes in the white matter. No recent infarcts, masses, hemorrhage, or shift. No significant change from prior study on August 25. The patient was seen in the CDU this morning. He states he was at [facility] and his arm felt numb and he felt like he was going to pass out. The [facility] doctor laid him out on the table and called 911. Symptoms were severe and patient is concerned that this continues to happen with no explanation. . CBC/BMP: 09/05/16 0848 09/05/16 0848 Significant Findings Laboratory Tests Test 09/02/16 09/02/16 09/02/16 09/03/16 17:00 17:45 19:49 01:16 Activated Partial 67.9 SEC 73.8 SEC Thromboplast Time (24.3-30.1) (24.3-30.1) Urine Osmolality 239 MOSM/KG (300-1300) Serum Osmolality 270 MOSM/KG (275-295) Test 09/03/16 09/03/16 09/03/16 09/04/16 06:54 14:42 19:45 03:24 Red Blood Count 4.07 MIL/MM3 3.45 MIL/MM3 (4.50-5.90) (4.50-5.90) Hemoglobin 12.1 GM/DL 10.5 GM/DL (13.0-17.0) (13.0-17.0) Hematocrit 35.1 % 30.5 % (39.0-51.0) (39.0-51.0) Platelet Count 105 TH/MM3 119 TH/MM3 (150-450) (150-450) Mean Platelet Volume 11.9 FL (7.0-11.0) Neutrophils (%) (Auto) 83.4 % 83.2 % (16.0-70.0) (16.0-70.0) Lymphocytes (%) (Auto) 5.7 % 6.7 % (9.0-44.0) (9.0-44.0) Monocytes (%) (Auto) 10.4 % 8.7 % (0.0-8.0) (0.0-8.0) Lymphocytes # (Auto) 0.4 TH/MM3 0.4 TH/MM3 (1.0-4.8) (1.0-4.8) Platelet Estimate LOW (NORMAL) Platelet Morphology Comment ENLARGED (NORMAL) Prothrombin Time 25.3 SEC 33.6 SEC (9.8-11.6) (9.8-11.6) Activated Partial 67.8 SEC 53.9 SEC 90.2 SEC 68.1 SEC Thromboplast Time (24.3-30.1) (24.3-30.1) (24.3-30.1) (24.3-30.1) Sodium Level 131 MEQ/L (136-145) Chloride Level 96 MEQ/L 112 MEQ/L (98-107) (98-107) Calcium Level 7.9 MG/DL 6.1 MG/DL (8.5-10.1) (8.5-10.1) Potassium Level 2.8 MEQ/L (3.5-5.1) Creatinine 0.59 MG/DL (0.60-1.30) Protein Corrected Calcium 7.4 MG/DL (8.5-10.1) Total Protein 4.4 GM/DL (6.4-8.2) Test 09/04/16 09/04/16 09/05/16 10:45 17:44 08:48 Activated Partial 49.3 SEC 50.2 SEC 43.0 SEC Thromboplast Time (24.3-30.1) (24.3-30.1) (24.3-30.1) Red Blood Count 4.21 MIL/MM3 (4.50-5.90) Hemoglobin 12.7 GM/DL (13.0-17.0) Hematocrit 37.0 % (39.0-51.0) Neutrophils (%) (Auto) 85.7 % (16.0-70.0) Lymphocytes (%) (Auto) 6.1 % (9.0-44.0) Neutrophils # (Auto) 7.8 TH/MM3 (1.8-7.7) Lymphocytes # (Auto) 0.6 TH/MM3 (1.0-4.8) Prothrombin Time 24.2 SEC (9.8-11.6) Estimat Glomerular Filtration 86 ML/MIN (>89) Rate Random Glucose 108 MG/DL (74-106) Imaging Last Impressions Chest X-Ray 08/30/16 0000 Signed Impressions: Service Date/Time: August 13:58 - CONCLUSION: No acute cardiopulmonary disease. Ryan Nuno MD Head CT 08/29/16 0000 Signed Impressions: Service Date/Time: Monday, August 29, 2016 11:37 - CONCLUSION: Atrophy otherwise negative. Findings were called to Dr. Ryder at 1159. Earl Gonzales MD FACR Brain MRI 08/27/16 0000 Signed Impressions: Service Date/Time: Saturday, August 27, 2016 20:20 - CONCLUSION: 1. Moderate chronic ischemic changes in the white matter. No recent infarct. No mass, hemorrhage or shift. No significant change from August 25. Dany Park MD PE at Discharge GENERAL: Well-developed well-nourished. In no acute distress. Hard of hearing. SKIN: Warm and dry. No lesions noted. HEENT: Normocephalic. Pupils equal and round. Mucous membranes pink and moist. CARDIOVASCULAR: Regular rate and rhythm. No murmur appreciated. RESPIRATORY: No accessory muscle use. Clear to auscultation. Breath sounds equal bilaterally. GASTROINTESTINAL: Abdomen soft, non-tender, nondistended. Bowel sounds x4. MUSCULOSKELETAL: No obvious deformities. No clubbing or cyanosis. No edema. NEUROLOGICAL: Awake and alert. No focal neurological deficits. Moves upper and lower extremities spontaneously. Normal speech. PSYCHIATRIC: Appropriate mood and affect; insight and judgment normal. Hospital Course 86-year-old male with a past medical history of atrial fibrillation on Coumadin (INR 1.4 in ER), left carotid artery stenosis, hypothyroidism, orthostatic hypotension, prostate cancer, and CAD was brought to the ED for symptoms of right weakness on 08/27/2016. Recently seen as a stroke alert on 08/24/16, discharged 08/26/2016, workup negative except carotid U/S on 08/25/2016 showed elevated velocity/ratio and left carotid system suggesting a 50-69% stenosis with no significant stenosis noted in the right carotid artery. E coli UTI. E. Coli bacteremia, now with 2/4 bottles positive blood cx. On IV rocephin. Consult ID, appreciate recommendations. Repeat blood cultures. TIA Subtherapeutic INR, per cardiology patient to leave the hospital when INR is therapeutic. Continue heparin until INR therapeutic, continue coumadin , pharm follwing Labs/imaging reviewed: EEG consistent with mild diffuse encephalopathy, but no focal abnormalities noted. Head CT and brain MRI with chronic changes, no acute findings. - PT, OT, ST consults, recommends rehab vs [facility] PT - Monitor on telemetry, Neurochecks, NIHSS - Neurology consulted; appreciate Dr. Almeida assistance - Continue heparin drip and bridge until Coumadin therapeutic (INR 1.4 on admit ) - Continue home coumadin; monitor for therapeutic dose/therapeutic INR - STROKE ALERT 08/29 - neuro consulted, repeat head CT unremarkable, suspect related to hypotensive event Hyponatremia Na 126. Will give NaCl tablet. Monitor Na closely Q6 hrs for fast correction. Continue IVF 0.9 NS. Check urinary Na and osmolality. Na worsening , will also consult nephrology. Hypokalemia: replace with PO KCl. Monitor and replace Mag normal. Monitor and replace. Orthostatic Hypotension: likely contributing to symptoms as above. Now also with worsening hyponatremia - sanya jacobsen - continue fludrocortisone - consulted patient's deputy of counter intelligence Dr. Siddiqui, appreciate recommendations - Patient and family educated on slow transitions and position changes to avoid symptoms Atrial Fibrillation on Coumadin, rate controlled - not on any rate controlling medications however HR mostly in 70s - continue anticoagulation with Coumadin, and Heparin drip until INR therapeutic , currently subtherapeutic, monitor INR, pharmacy cpnsult , following. Hiccups: Reglan as need. Chronic Thrombocytopenia (of undetermined origin refused marrow studies) - seen by Dr. Ding for monitoring in the past reconsult if needed - platelet count 88,000 on admission - follow trends in platelet counts All other medical conditions stable, continue home medications as appropriate. DVT prophylaxis - Heparin gtt/Coumadin Patient improved, cleared by consultants for DC .INR therapeutic. Patient to follow up as OP with PCP and consultants. Pt Condition on Discharge: Stable Discharge Disposition: Discharge to SNF Discharge Time: > 30 minutes Discharge Instructions DIET: Follow Instructions for: Heart Healthy Diet Follow up Referrals: Cardiology - 1 Week Neurology - 1 Week PCP Follow-up - 3-5 Days New Medications: Levofloxacin (Levaquin) 750 Mg Tab 750 MG PO DAILY Infection #10 Ref 0 TAB Metoclopramide (Reglan) 5 Mg Tab 5 MG PO QID hiccups #120 Ref 0 TAB Continued Medications: Amlodipine (Norvasc) 10 Mg Tab 10 MG PO DAILY HTN #30 TAB Atorvastatin (Lipitor) 20 Mg Tab 20 MG PO HS CVA #30 TAB Shxjocvdy-Miioskwoecn-Xmqhsae (Osteo Bi-Flex One A Day) 1 Tab 1 TAB PO AC DINNER TAB Fludrocortisone (Fludrocortisone) 0.1 Mg Tab 0.1 MG PO DAILY #30 Ref 0 TAB Levothyroxine (Levothyroxine) 75 Mcg Tab 75 MCG PO DAILY Thyroid #30 Ref 0 TAB Mesalamine ER 24 HR (Apriso) 0.375 Gm Caper 0.75 GM PO DAILY Ulcerative colitis Ref 0 CAP Metoprolol Succinate ER 24 HR (Metoprolol Succinate ER 24 HR) 50 Mg Tab 50 MG PO DAILY #30 Ref 0 TAB Multiple Vitamin (Multi Vitamin) 1 Tab Tab 1 TAB PO AC DINNER TAB Warfarin (Warfarin) 1 Mg Tab 1 MG PO MoWeFr Blood Clot Prevention #30 Ref 0 TAB Warfarin (Warfarin) 7.5 Mg Tab 7.5 MG PO HS Blood Clot Prevention #30 Ref 0 TAB Nichole Ryder MD Sep 05, 2016 12:21
--- NOTE | 2016-09-05 12:21 | HHI.PR ---
Subjective Remarks Less hiccups. No fever or chills overnight. No n/v/d/c. Patient says he feels improving. Per family he is less confused. No new spells. No motor /sensory deficit. Objective Vitals Vital Signs Date Time Temp Pulse Resp B/P Pulse Ox O2 Delivery O2 Flow Rate FiO2 09/05/16 08:25 97.6 86 20 195/92 95 09/05/16 04:15 97.3 75 16 185/86 98 09/05/16 00:25 97.4 91 22 176/84 96 09/04/16 20:45 97.5 86 20 167/72 97 09/04/16 20:00 84 09/04/16 17:41 163/84 09/04/16 17:24 96.3 80 20 187/86 97 09/04/16 12:37 95.1 80 20 173/80 95 I/O 09/04/16 09/04/16 09/04/16 09/05/16 09/05/16 09/05/16 07:00 15:00 23:00 07:00 15:00 23:00 Intake Total 1440 ml 1268 ml Output Total 750 ml 500 ml Balance -750 ml 940 ml 1268 ml Intake Oral 1440 ml IV Total 1268 ml Output Urine Total 750 ml 500 ml # Voids 6 6 # Bowel Movements 0 Result Diagram: 09/05/16 0848 09/05/16 0848 Imaging Last Impressions Chest X-Ray 08/30/16 0000 Signed Impressions: Service Date/Time: August 13:58 - CONCLUSION: No acute cardiopulmonary disease. Ryan Nuno MD Head CT 08/29/16 0000 Signed Impressions: Service Date/Time: Monday, August 29, 2016 11:37 - CONCLUSION: Atrophy otherwise negative. Findings were called to Dr. Ryder at 1159. Earl Gonzales MD FACR Brain MRI 08/27/16 0000 Signed Impressions: Service Date/Time: Saturday, August 27, 2016 20:20 - CONCLUSION: 1. Moderate chronic ischemic changes in the white matter. No recent infarct. No mass, hemorrhage or shift. No significant change from August 25. Dany Park MD Objective Remarks GENERAL: Well-developed well-nourished. In no acute distress. Hard of hearing. SKIN: Warm and dry. No lesions noted. HEENT: Normocephalic. Pupils equal and round. Mucous membranes pink and moist. CARDIOVASCULAR: Regular rate and rhythm. No murmur appreciated. RESPIRATORY: No accessory muscle use. Clear to auscultation. Breath sounds equal bilaterally. GASTROINTESTINAL: Abdomen soft, non-tender, nondistended. Bowel sounds x4. MUSCULOSKELETAL: No obvious deformities. No clubbing or cyanosis. No edema. NEUROLOGICAL: Awake and alert. No focal neurological deficits. Moves upper and lower extremities spontaneously. Normal speech. PSYCHIATRIC: Appropriate mood and affect; insight and judgment normal. A/P Problem List: (1) TIA (transient ischemic attack) ICD Code: G45.9 Status: Acute (2) Hyponatremia ICD Code: E87.1 Status: Resolved (3) Thrombocytopenia ICD Code: D69.6 Status: Chronic Assessment and Plan 86-year-old male with a past medical history of atrial fibrillation on Coumadin (INR 1.4 in ER), left carotid artery stenosis, hypothyroidism, orthostatic hypotension, prostate cancer, and CAD was brought to the ED for symptoms of right weakness on 08/27/2016. Recently seen as a stroke alert on 08/24/16, discharged 08/26/2016, workup negative except carotid U/S on 08/25/2016 showed elevated velocity/ratio and left carotid system suggesting a 50-69% stenosis with no significant stenosis noted in the right carotid artery. E coli UTI. E. Coli bacteremia, now with 2/4 bottles positive blood cx. On IV rocephin. Consult ID, appreciate recommendations. Repeat blood cultures. TIA Subtherapeutic INR, per cardiology patient to leave the hospital when INR is therapeutic. Continue heparin until INR therapeutic, continue coumadin , pharm follwing Labs/imaging reviewed: EEG consistent with mild diffuse encephalopathy, but no focal abnormalities noted. Head CT and brain MRI with chronic changes, no acute findings. - PT, OT, ST consults, recommends rehab vs [facility] PT - Monitor on telemetry, Neurochecks, NIHSS - Neurology consulted; appreciate Dr. Almeida assistance - Continue heparin drip and bridge until Coumadin therapeutic (INR 1.4 on admit ) - Continue home coumadin; monitor for therapeutic dose/therapeutic INR - STROKE ALERT 08/29 - neuro consulted, repeat head CT unremarkable, suspect related to hypotensive event Hyponatremia Na 126. Will give NaCl tablet. Monitor Na closely Q6 hrs for fast correction. Continue IVF 0.9 NS. Check urinary Na and osmolality. Na worsening , will also consult nephrology. Hypokalemia: replace with PO KCl. Monitor and replace Mag normal. Monitor and replace. Orthostatic Hypotension: likely contributing to symptoms as above. Now also with worsening hyponatremia - sanya hose - continue fludrocortisone - consulted patient's garnett fixer Dr. Siddiqui, appreciate recommendations - Patient and family educated on slow transitions and position changes to avoid symptoms Atrial Fibrillation on Coumadin, rate controlled - not on any rate controlling medications however HR mostly in 70s - continue anticoagulation with Coumadin, and Heparin drip until INR therapeutic , currently subtherapeutic, monitor INR, pharmacy cpnsult , following. Hiccups: Reglan as need. Chronic Thrombocytopenia (of undetermined origin refused marrow studies) - seen by Dr. Ding for monitoring in the past reconsult if needed - platelet count 88,000 on admission - follow trends in platelet counts All other medical conditions stable, continue home medications as appropriate. DVT prophylaxis - Heparin gtt/Coumadin Discharge Planning INR subtherapeutic, high risk for neurologic event, discharge planning to SNF when INR therapeutic, hyponatremia/lytes corrected, treat infection. DC when improved and cleared by consultants. Problem Qualifiers (1) TIA (transient ischemic attack): Qualified Code: G45.9 - Transient cerebral ischemia, unspecified type Nichole Ryder MD Sep 05, 2016 12:21
[2016-09-05 12:23] VITALS: BP 111/51; PULSE 85; RESP 20; TEMP 96.5; O2SAT 94
[2016-09-05] MEDS ORDERED: REGL5TAB PO (13:24)
--- NOTE | 2016-09-05 13:24 | HHI.NPPN ---
Subjective Complaints: Confused Interval History He looks much better. Excellent urine function. Sodium and potassium have corrected. He is more alert. (Renetta Izaguirre) Review of Systems General General Remarks unable to evaluate (Renetta Izaguirre) Objective Data Data 09/04/16 09/05/16 19:00 07:00 Intake Total 960 ml 1748 ml Output Total 500 ml Balance 960 ml 1248 ml Intake Oral 960 ml 480 ml IV Total 1268 ml Output Urine Total 500 ml # Voids 6 6 Vital Signs Date Time Temp Pulse Resp B/P Pulse Ox O2 Delivery O2 Flow Rate FiO2 09/05/16 12:23 96.5 85 20 111/51 94 09/05/16 08:25 97.6 86 20 195/92 95 09/05/16 04:15 97.3 75 16 185/86 98 09/05/16 00:25 97.4 91 22 176/84 96 09/04/16 20:45 97.5 86 20 167/72 97 09/04/16 20:00 84 09/04/16 17:41 163/84 09/04/16 17:24 96.3 80 20 187/86 97 (Renetta Izaguirre) -: 09/05/16 0848 09/05/16 0848 Physical Exam General Appearance: Well Developed, No Acute Distress, Comfortable, Malnourished ( Renetta Izaguirre) Eyes Eye Exam: Pupils Equal (Renetta Izaguirre) Neck Neck Exam: Neck Supple (Renetta Izaguirre) Pulmonary Resp Exam: Clear Bilaterally, Breath Sounds Equal, No Distress (Renetta Izaguirre) Cardiology CV Exam: Regular, Normal Sinus Rhythm (Renetta Izaguirre) Gastrointestinal/Abdomen GI Exam: Soft, Non-Tender, Bowel Sounds Present (Renetta Izaguirre) Musculoskeletal MS Exam: Joints Intact, Normal Gait, Normal Tone, Unable to Ambulate (Renetta Izaguirre) Integumentary Skin Exam: Warm, Dry (Renetta Izaguirre) Extremeties Extremities Exam: No Edema, Pedal Pulses Palpable (Renetta Izaguirre) Neurologic Neuro Exam: Awake, Moving All Extremities, Stuporous (Renetta Izaguirre) Assessment/Plan Discussed Condition With: Relative Assessment Summary: Hypertension Problem List: (1) Hyponatremia Plan: Hypovolemic hyponatremia corrected with IVF, now tolerating oral fluids he has normal renal function (2) TIA (transient ischemic attack) Plan: off Heparin gtt continue supportive care (3) Hypokalemia Plan: corrected, now tolerating oral food/fluids Plan he has had significant improvement, we will sign off at this time (Renetta Izaguirre) Plan patient was seen and examined. His condition has improved. Serum Na is stable. His oral intake is satisfactory. We will stop IVF. Please call as needed. ( Moi Friedman MD) Problem Qualifiers (1) TIA (transient ischemic attack): Qualified Code: G45.9 - Transient cerebral ischemia, unspecified type Renetta Izaguirre Sep 05, 2016 13:24 Moi Friedman MD Sep 05, 2016 22:09
[2016-09-05] MEDS ORDERED: PILL SPLITTER OTHER PRN (13:45)
[2016-09-05] MEDS ORDERED: WARFARIN SOD 2.5 MG TAB PO SCH (16:00)
[2016-09-05] MEDS ORDERED: WARFARIN SOD 4 MG TAB PO SCH (16:00)
[2016-09-05] MEDS ORDERED: METOCLOPRAMIDE HCL 10 MG TAB PO SCH (18:00)
[2016-11-14] MEDS ORDERED: PHEN60SU RECTAL (13:26)
== END 2016-09-05 16:03 | DRG 69 ==
LOC: NEPA 15:32 → NEDA 17:20 → NEDH 21:20 → NEPGCP 23:28 → N05A 08-30 23:49 → N05B 09-04 14:52
PROVIDERS: ADMIT Hospitalist; ATTEND Hospitalist
DX: G45.9 Transient cerebral ischemic attack, unspecified (principal); A41.51 Sepsis due to Escherichia coli [E. coli]; D69.6 Thrombocytopenia, unspecified; N39.0 Urinary tract infection, site not specified; E87.1 Hypo-osmolality and hyponatremia; R47.01 Aphasia; I48.0 Paroxysmal atrial fibrillation; I10 Essential (primary) hypertension; E87.6 Hypokalemia; I95.1 Orthostatic hypotension; I65.22 Occlusion and stenosis of left carotid artery; Z79.01 Long term (current) use of anticoagulants; I25.10 Atherosclerotic heart disease of native coronary artery without angina pectoris; E03.9 Hypothyroidism, unspecified; Z85.46 Personal history of malignant neoplasm of prostate; Z92.3 Personal history of irradiation; R06.6 Hiccough; H91.93 Unspecified hearing loss, bilateral; K21.9 Gastro-esophageal reflux disease without esophagitis
CPT/HCPCS: 70450; 70551; 71010; 76937; 80048; 80053; 80307; 81001; 82140; 82435; 82550; 82565; 82947; 83605; 83735; 83930; 83935; 84132; 84155; 84295; 84300; 84443; 84484; 84520; 85007; 85025; 85027; 85384; 85610; 85730; 86850; 86900; 86901; 87040; 87077; 87086; 87186; 87205; 93005; 95819; J0610; J0696; J1644; J2765; J3480; J7030; J7040

== ENCOUNTER → 2016-11-14 | Outpatient (CLI) | payer MEDICARE, BC ==
[~2016-11-14] VITALS: Ht 175.3 cm; Wt 75.4 kg
[~2016-11-14] MED LIST changes: +BOSW5TAB PO; +CHLORHEXIDINE GLUCONATE 2 % 1 PACK (2 CLOTHS) TOPICAL PRN; +FLUD.1 PO; +INSULIN HUMAN REGULAR 1,000 UNITS/10 ML VIAL SQ PRN; +LACTATED RINGER'S 1000 ML IV PRN; +LEVA750T PO; +LIDOCAINE 2% JELLY 5 ML TUBE TOPICAL ONE; +METOPROLOL TARTRATE 25 MG TAB PO PRN; +MULT-135 PO; +PHEN60SU RECTAL; +POVIDONE IODINE 5% (ANTISEPSIS KIT) 4 APPLICATIONS EACH NARE PRN; +REGL5TAB PO; +SODIUM CHLORID 0.9% 500 ML IV PRN; -WARF-18 PO; +WARF-21 PO
[2016-11-14 11:05] VITALS: BP 196/93; PULSE 67; RESP 20; TEMP 98.5; O2SAT 96
== END ==
LOC: HEND 10:53
DX: K62.5 Hemorrhage of anus and rectum (principal); K62.89 Other specified diseases of anus and rectum; I78.1 Nevus, non-neoplastic; K62.7 Radiation proctitis

== ENCOUNTER 2017-01-28 20:43 | Emergency (ER) | payer MEDICARE, BC ==
[~2017-01-28] VITALS: Ht 175.3 cm; Wt 76.5 kg
[~2017-01-28 20:43] MED LIST changes: -AMLO10 PO; -CHLORHEXIDINE GLUCONATE 2 % 1 PACK (2 CLOTHS) TOPICAL PRN; -INSULIN HUMAN REGULAR 1,000 UNITS/10 ML VIAL SQ PRN; -LACTATED RINGER'S 1000 ML IV PRN; -LEVA750T PO; -LIDOCAINE 2% JELLY 5 ML TUBE TOPICAL ONE; -METOPROLOL TARTRATE 25 MG TAB PO PRN; -POVIDONE IODINE 5% (ANTISEPSIS KIT) 4 APPLICATIONS EACH NARE PRN; -SODIUM CHLORID 0.9% 500 ML IV PRN
[2017-01-28 21:13] VITALS: BP 138/73; PULSE 65; RESP 16; TEMP 98.2; O2SAT 96
[2017-01-28 21:34] VITALS: BP 138/73; PULSE 65; RESP 16; TEMP 98.2
--- NOTE | 2017-01-28 22:02 | PD ---
HPI Chief Complaint: Laceration/Skin Injury Time Seen by Provider: 21:30 Travel History International Travel<30 days: No Contact w/Intl Traveler<30days: No Traveled to known affect area: No History of Present Illness HPI 86-year-old male on Coumadin for A. fib presents to the emergency room for evaluation of bleeding wound to his right hand. Patient accidentally stabbed his right hand with a stick 2 days ago while breaking the stick in half. States it has been continuously bleeding since then. His has been applying hydrogen peroxide and they have been keeping it dressed but patient reports the bleeding has gone through the dressings and gotten onto his bed. Patient takes 1.5 mg Coumadin daily and 0.5 mg on Saturday, Saturday, and Saturday. He has continued to take it since injuring himself. Last tetanus was one year ago. Patient denies any significant pain or paresthesias. His son arrived from out of town today and saw the bleeding wound and thought that he should have it evaluated. He denies headache, lightheadedness, dizziness, or palpitations. PFSH Past Medical History Hx Anticoagulant Therapy: Yes Asthma: No Atrial Fibrillation: Yes Blood Disorders: No Anxiety: No Heart Rhythm Problems: No Cancer: Yes (PROSTATE, SHOULDER LEISON ) Cardiovascular Problems: No High Cholesterol: No Chemotherapy: No Chest Pain: Yes Congestive Heart Failure: No COPD: No Cerebrovascular Accident: Yes Coronary Artery Disease: Yes Diabetes: No Diminished Hearing: Yes ([place]) Endocrine: Yes (hypothriodism) Gastrointestinal Disorders: Yes ([place]OHNS DISEASE) GERD: Yes Genitourinary: No Hepatitis: No Hiatal Hernia: No Hypertension: Yes Musculoskeletal: Yes (left shoulder, left knee) Neurologic: Yes Psychiatric: No Reproductive: No Respiratory: No Immunizations Current: Yes Radiation Therapy: Yes (PROSTATE [place]) Sleep Apnea: No Thyroid Disease: Yes Past Surgical History Appendectomy: Yes Cardiac Surgery: Yes (LOOP RECORDING DEVICE PLACE) Cholecystectomy: Yes Hysterectomy: No Other Surgery: Yes Social History Alcohol Use: No Tobacco Use: No Substance Use: No Allergies-Medications (Allergen,Severity, Reaction): Coded Allergies: No Known Allergies (Unverified , 01/28/17) Reported Meds & Prescriptions Reported Meds & Active Scripts Active Reglan (Metoclopramide HCl) 5 Mg Tab 5 Mg PO QID Lipitor (Atorvastatin Calcium) 20 Mg Tab 20 Mg PO HS Reported Preparation H Supp (Phenylephrine-[place] Butter Supp) 0.25-88.44 % Supp 1 Supp RECTAL HS PRN Osteo Bi-Flex One A Day (Suspxtkbr-Wdfctbqvrjt-Ivfszzc) 1 Tab 1 Tab PO AC DINNER Fludrocortisone (Fludrocortisone Acetate) 0.1 Mg Tab 0.1 Mg PO DAILY Apriso (Mesalamine) 0.375 Gm Caper 0.75 Gm PO DAILY Warfarin 7.5 Mg Tab 7.5 Mg PO HS Warfarin 1 Mg Tab 1 Mg PO MOWEFR Metoprolol Succinate ER 24 HR (Metoprolol Succinate) 50 Mg Tab 50 Mg PO DAILY Levothyroxine (Levothyroxine Sodium) 75 Mcg Tab 75 Mcg PO DAILY Review of Systems Except as stated in HPI: all other systems reviewed are Neg Physical Exam Narrative GENERAL: Well-nourished, well-developed male in no acute distress. Afebrile. Ambulatory. SKIN: Focused skin assessment warm/dry. There is a nonbleeding superficial puncture wound to the right hand in the interdigital space between the first and second fingers. HEAD: Normocephalic. EYES: No scleral icterus. No injection or drainage. NECK: Supple, trachea midline. No JVD or lymphadenopathy. CARDIOVASCULAR: Regular rate and rhythm without murmurs, gallops, or rubs. RESPIRATORY: Breath sounds equal bilaterally. No accessory muscle use. MUSCULOSKELETAL: No cyanosis, or edema. Full range of motion of the right hand. Less than 2 second capillary refill distally. 2+ radial pulse. Distal sensation intact. Nontender to palpation. Data Data Last Documented VS Vital Signs Date Time Temp Pulse Resp B/P Pulse Ox O2 Delivery O2 Flow Rate FiO2 01/28/17 23:25 64 16 183/87 98 01/28/17 22:23 Room Air 01/28/17 21:34 98.2 Orders Complete Blood Count With Diff (01/28/17 21:40) Prothrombin Time / Inr (Pt) (01/28/17 21:40) Wound Care (01/28/17 22:40) Labs Laboratory Tests Test 01/28/17 22:00 White Blood Count 7.4 TH/MM3 Red Blood Count 4.11 MIL/MM3 Hemoglobin 12.4 GM/DL Hematocrit 36.4 % Mean Corpuscular Volume 88.7 FL Mean Corpuscular Hemoglobin 30.2 PG Mean Corpuscular Hemoglobin 34.1 % Concent Red Cell Distribution Width 14.1 % Platelet Count 74 TH/MM3 Mean Platelet Volume 8.9 FL Neutrophils (%) (Auto) 77.4 % Lymphocytes (%) (Auto) 15.0 % Monocytes (%) (Auto) 5.7 % Eosinophils (%) (Auto) 1.5 % Basophils (%) (Auto) 0.4 % Neutrophils # (Auto) 5.8 TH/MM3 Lymphocytes # (Auto) 1.1 TH/MM3 Monocytes # (Auto) 0.4 TH/MM3 Eosinophils # (Auto) 0.1 TH/MM3 Basophils # (Auto) 0.0 TH/MM3 CBC Comment AUTO DIFF Differential Comment AUTO DIFF CONFIRMED Platelet Estimate LOW Platelet Morphology Comment ENLARGED Prothrombin Time 26.6 SEC Prothromb Time International 2.3 RATIO Ratio MDM Medical Decision Making Medical Screen Exam Complete: Yes Emergency Medical Condition: Yes Medical Record Reviewed: Yes Differential Diagnosis Bleeding wound, puncture wound, laceration, abrasion, skin tear Narrative Course 86-year-old male presents to the emergency room for evaluation of bleeding wound to his right hand that occurred 2 days ago. Patient is on Coumadin for A. fib. He reports minimal pain. The laceration site is without evidence of infection. There is some maceration from a dressing that has stayed on to control bleeding. Wound is not bleeding on examination. Patient is up-to-date on tetanus. CBC is unremarkable. INR is therapeutic. Given delayed presentation, the wound will not be closed with sutures. Patient was given signs and symptoms to look out for infection and told to follow up with his primary care physician if they should occur. The wound was not manipulated as bleeding has just now become controlled. A compression dressing and triple antibiotic ointment was applied. He understands and agrees to plan. Diagnosis Primary Impression: Bleeding from wound Referrals: Primary Care Physician Patient Instructions: General Instructions, Laceration (ED) Additional Instructions: Rest and drink plenty of fluids. Keep pressure dressing on for 24 hours. Wash hands with soap and water. Apply triple antibiotic ointment daily. Follow-up with a primary care physician for signs of infection or if bleeding continues. Return to the emergency room for worsening symptoms. Disposition: 01 DISCHARGE HOME Condition: Stable Kayla Rasheed Jan 28, 2017 22:02
[2017-01-28 22:13] LABS: AUTOMATED NEUTROPHIL # 5.8 TH/MM3 (1.8-7.7); BASOPHIL % 0.4 % (0.0-2.0); EOSINOPHIL # 0.1 TH/MM3 (0-0.4); EOSINOPHIL % 1.5 % (0.0-4.0); HEMATOCRIT 36.4 % (39.0-51.0); LYMPHOCYTE # 1.1 TH/MM3 (1.0-4.8); MEAN CELL VOLUME 88.7 FL (80.0-100.0); MEAN CORPUSCULAR HEMOGLOBIN 30.2 PG (27.0-34.0); MEAN CORPUSCULAR HGB CONC 34.1 % (32.0-36.0); MONO % 5.7 % (0.0-8.0); NEUT % 77.4 % (16.0-70.0); PLATELET COUNT 74 TH/MM3 (150-450); RED BLOOD COUNT 4.11 MIL/MM3 (4.50-5.90); RED CELL DISTRIBUTION WIDTH 14.1 % (11.6-17.2); WHITE BLOOD COUNT 7.4 TH/MM3 (4.0-11.0)
[2017-01-28 22:23] VITALS: BP 184/83; PULSE 68; RESP 16; O2SAT 98
[2017-01-28 22:26] LABS: HEMO FLAGS AUTO DIFF
[2017-01-28 22:35] LABS: INTERNATIONAL NORMALIZED RATIO 2.3 RATIO; PROTHROMBIN TIME - PATIENT 26.6 SEC (9.8-11.6)
[2017-01-28 23:01] LABS: PLATELET ESTIMATE SMEAR LOW (NORMAL); PLATELET MORPHOLOGY ENLARGED (NORMAL); SCAN/DIFF AUTO DIFF CONFIRMED
[2017-01-28 23:25] VITALS: BP 183/87
== END 2017-01-28 23:32 | disposition home or self-care (01) ==
LOC: PHED 20:43
DX: S61.401A Unspecified open wound of right hand, initial encounter (principal); I10 Essential (primary) hypertension; E03.9 Hypothyroidism, unspecified; H91.93 Unspecified hearing loss, bilateral; Z79.01 Long term (current) use of anticoagulants; Z86.79 Personal history of other diseases of the circulatory system; Z87.19 Personal history of other diseases of the digestive system; Z87.39 Personal history of other diseases of the musculoskeletal system and connective tissue; Z86.69 Personal history of other diseases of the nervous system and sense organs; W45.8XXA Other foreign body or object entering through skin, initial encounter
CPT/HCPCS: 85025; 85610; 99283